=== PATIENT | male | born 1955 | race Caucasian/White ===

== ENCOUNTER 2020-06-24 12:09 | Emergency (ER) | payer MEDICARE, SELFPAY ==
--- NOTE | ~2020-06-24 | XR_ITS ---
EXAMINATION: XR CHEST CLINICAL INFORMATION: Cough COMPARISON: None TECHNIQUE: Frontal view of the chest was obtained. FINDINGS: Cardiac silhouette is normal in size. The lungs are well aerated. There is no lobar consolidation. No pleural effusion or pneumothorax. Degenerative changes of the spine. XR/XR chest 1V IMPRESSION: No acute pulmonary pathology.
[2020-06-24 12:29] VITALS: BP 123/60; PULSE 78; RESP 18; TEMP 37.4; O2SAT 94; BMI 45.0
--- NOTE | 2020-06-24 13:07 | ED_ITS ---
HPI - URI/Sore Throat General Chief Complaint: Upper Respiratory Symptoms Stated Complaint: COUGH Time Seen by Provider: 06/24/20 12:27 Source: patient Mode of arrival: ambulatory History of Present Illness HPI Narrative: 64-year-old male with a past medical history of arthritis, gout, hypertension, [place], presenting to the ED complaining of dry persistent cough, myalgias, and mild SOB x 3-4 days. 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 Denies fever, chills, chest pain, abdominal pain, nausea/vomiting/diarrhea, LE edema, recent travel, history of blood clots MD elicited complaint: cough Related Data Previous Rx's Medication Instructions Recorded albuterol sulfate 2 puff INHALATION Q4-6H PRN #6.7 g 06/24/20 benzonatate [Tessalon Perles] 100 mg PO TID PRN #14 cap 06/24/20 hydrocodone-homatropine [Hycodan 5 ml PO Q4-6H PRN #60 ml 06/24/20 (with homatropine)] Allergies Allergy/AdvReac Type Severity Reaction Status Date / Time duloxetine [Cymbalta] Allergy Unknown diarrhea Verified 10/05/18 00:00 Review of Systems Review of Systems: Constitutional: No Fever, No Chills ENT/Mouth: No Ear Pain, No Nasal Congestion, No sore throat, No Rhinorrhea Cardiovascular: No Chest Pain, +mild SOB, No Edema Respiratory: + Cough, No Sputum, No Wheezing, No Dyspnea Gastrointestinal: No Nausea, No Vomiting, No Diarrhea, No Abdominal pain Musculoskeletal: No joint pain, + Myalgias, No Joint Swelling Skin: No Skin Lesions, No rash Neuro: No Weakness, No Numbness, No Headache Yes all other systems are reviewed and are negative [facility] Past Medical History Attestation statement: The following information was validated with the patient. Medical History (Updated 06/24/20 @ 20:00 by BRITTNEE De La Cruz) Arthritis Gout HTN (hypertension) Myocardial infarct Social History Social History Alcohol intake: current Alcohol intake frequency: 3 or more drinks per day Smoking Status: Never smoker Use of substances other than those prescribed or required for medical reasons: No Advance Directives: No Advance Directives Information Provided: No Physical Exam Vital Signs: Vital Signs: Last Vital Signs Temp 98.8 F 06/24/20 15:52 Pulse 73 06/24/20 15:52 Resp 17 06/24/20 15:52 BP 99/65 06/24/20 15:52 Pulse Ox 93 06/24/20 16:55 Body Mass Index 45.0 Const: General: cooperative, healthy appearing and no acute distress Orientation/consciousness: patient oriented x3 Limitations: no limitations HENMT: Head: Yes normal to inspection Ears: hearing grossly normal bilaterally General nose exam: Normal external nose present Face and sinus: Yes normal facial exam Eyes: General: appearance normal, both eyes and all related structures EOM: EOMs intact bilaterally Neck: Neck: Yes normal visual inspection and Yes no meningeal signs Resp: Effort & Inspection: normal respiratory effort Auscultation: clear to auscultation bilaterally, no rales, no rhonchi and no wheezes Cardio: Rate: regular rate Heart sounds: S1 normal heart sound present and S2 normal heart sound present GI: Inspection: Yes normal to inspection Palpation (GI): Soft to palpation, nontender, no guarding and not rigid Skin: Rashes: no rashes Wounds: no wounds Neuro: General: patient oriented x3 and no meningeal signs Gait exam (Neuro): Normal gait present Extrem: General: Yes normal to inspection, Yes no pedal edema and Yes no calf tenderness Course Course Course Narrative: -1446--patient unable to tolerate albuterol inhaler secondary to coughing, Hycodan ordered. COVID-19 positive > satting 93% on RA at rest > labs ordered, will ambulate with pulse ox -leukopenia 4.1, D-dimer below threshold at 229, AST/ALT elevated greater than baseline -initial troponin elevated at 9.2 > will obtain 3 hour repeat Patient ambulated with pulse ox maintaining saturation of 95% or greater on room air -2057--repeat troponin without 50% increase, TN unlikely. Results discussed with patient including worrisome signs and symptoms and strict return precautions. He verbalized understanding and feels safe for discharge home MDM - URI/Sore Throat MDM Narrative Medical decision making narrative: 64-year-old male with a past medical history of arthritis, gout, hypertension, [place], presenting to the ED complaining of dry persistent cough, myalgias, and mild SOB x 3-4 days. On exam VSS, NAD/nontoxic appearing, lungs CTA, no LE edema or calf tenderness. Concern for viral syndrome/COVID-19 vs bronchitis. Rule out pneumonia. Unlikely PE/CHF Plan: CXR, COVID-19 testing, albuterol/Tessalon Curry Differential Diagnosis Differential diagnosis: Likely upper respiratory infection Medical Records Attestation: I reviewed the patient's medical records. Lab Data Attestation: I reviewed the patient's lab results. Result diagrams: 06/24/20 16:14 06/24/20 16:14 Labs: Lab Results 06/24/20 06/24/20 06/24/20 Range/Units 13:00 16:14 16:14 WBC 4.1 L (4.8-10.8) X10*3/uL RBC 5.38 (4.60-5.80) X10*6/uL Hgb 15.9 (14.0-18.0) g/dl Hct 48.3 (42-52) % MCV 89.8 (80-98) fL MCH 29.6 (27.0-33.0) pg MCHC 32.9 (31.0-36.0) g/dl RDW 12.6 (11.0-16.0) % Plt Count 120 L (160-400) X10*3/uL MPV 9.4 (9.4-12.4) fL Immature Gran % (Auto) 0.2 (0.0-0.4) % Neut % (Auto) 55.4 (45-73) % Lymph % (Auto) 31.9 (20-40) % [place] % (Auto) 12.3 H (2-11) % Eos % (Auto) 0.0 (0-4) % Baso % (Auto) 0.2 (0-2) % Lymph # (Auto) 1.3 (1.2-4.9) X10*3/uL [place] # (Auto) 0.5 (0.1-1.2) X10*3/uL Eos # (Auto) 0.0 (0.0-0.4) X10*3/uL Baso # (Auto) 0.0 (0.0-0.2) X10*3/uL Abs Immat Gran (auto) 0.01 (0.00-0.03) X10*3/uL Absolute Neuts (auto) 2.3 (2.0-8.3) X10*3/uL Absolute Nucleated RBC 0.000 (0.0-0.012) X10*3/uL Nucleated RBC % (auto) 0.0 (0.0-0.2) /100WBC PT (10.8-13.0) SEC INR (0.9-1.1) APTT (24.1-38.0) SEC D-Dimer NG/ML Sodium 141 (135-145) mmol/L Potassium 4.1 (3.3-5.1) mmol/L Chloride 107 (96-108) mmol/L Carbon Dioxide 24 (22-29) mmol/L Anion Gap 14 (12-20) BUN 14 (9-16) mg/dL Creatinine 0.90 (0.5-1.4) mg/dL Estim Creat Clear Calc 136.0 Estimated GFR > 60 Random Glucose 114 (60-115) mg/dL Lactic Acid (0.5-2.0) mmol/L Calcium 8.0 L (8.4-10.2) mg/dL Magnesium 2.0 (1.6-2.6) mg/dL Ferritin (20-250) ng/mL Total Bilirubin 0.6 (0.0-1.0) mg/dL Direct Bilirubin 0.2 (0.0-0.5) mg/dL AST 107 H (5-37) U/L ALT 101 H (0-40) U/L Alkaline Phosphatase 82 (39-117) U/L Lactate Dehydrogenase 229 (118-273) U/L Troponin I High Sens (<3.5-35.0) ng/L C-Reactive Protein 1.17 H (< or = 0.50) mg/dL B-Natriuretic Peptide (<100) pg/mL Total Protein 6.7 (6.5-8.0) g/dL Albumin 3.9 (3.5-5.0) g/dL Procalcitonin ng/mL Coronavirus (PCR) POSITIVE A (Negative) Influenza Type A (PCR) NEGATIVE (Negative) Influenza Type B (PCR) NEGATIVE (Negative) RSV RNA Qual (PCR) NEGATIVE (Negative) 06/24/20 06/24/20 06/24/20 Range/Units 16:14 16:14 16:14 WBC (4.8-10.8) X10*3/uL RBC (4.60-5.80) X10*6/uL Hgb (14.0-18.0) g/dl Hct (42-52) % MCV (80-98) fL MCH (27.0-33.0) pg MCHC (31.0-36.0) g/dl RDW (11.0-16.0) % Plt Count (160-400) X10*3/uL MPV (9.4-12.4) fL Immature Gran % (Auto) (0.0-0.4) % Neut % (Auto) (45-73) % Lymph % (Auto) (20-40) % [place] % (Auto) (2-11) % Eos % (Auto) (0-4) % Baso % (Auto) (0-2) % Lymph # (Auto) (1.2-4.9) X10*3/uL [place] # (Auto) (0.1-1.2) X10*3/uL Eos # (Auto) (0.0-0.4) X10*3/uL Baso # (Auto) (0.0-0.2) X10*3/uL Abs Immat Gran (auto) (0.00-0.03) X10*3/uL Absolute Neuts (auto) (2.0-8.3) X10*3/uL Absolute Nucleated RBC (0.0-0.012) X10*3/uL Nucleated RBC % (auto) (0.0-0.2) /100WBC PT (10.8-13.0) SEC INR (0.9-1.1) APTT (24.1-38.0) SEC D-Dimer NG/ML Sodium (135-145) mmol/L Potassium (3.3-5.1) mmol/L Chloride (96-108) mmol/L Carbon Dioxide (22-29) mmol/L Anion Gap (12-20) BUN (9-16) mg/dL Creatinine (0.5-1.4) mg/dL Estim Creat Clear Calc Estimated GFR Random Glucose (60-115) mg/dL Lactic Acid 1.2 (0.5-2.0) mmol/L Calcium (8.4-10.2) mg/dL Magnesium (1.6-2.6) mg/dL Ferritin 1968 H (20-250) ng/mL Total Bilirubin (0.0-1.0) mg/dL Direct Bilirubin (0.0-0.5) mg/dL AST (5-37) U/L ALT (0-40) U/L Alkaline Phosphatase (39-117) U/L Lactate Dehydrogenase (118-273) U/L Troponin I High Sens 9.2 (<3.5-35.0) ng/L C-Reactive Protein (< or = 0.50) mg/dL B-Natriuretic Peptide 23 (<100) pg/mL Total Protein (6.5-8.0) g/dL Albumin (3.5-5.0) g/dL Procalcitonin ng/mL Coronavirus (PCR) (Negative) Influenza Type A (PCR) (Negative) Influenza Type B (PCR) (Negative) RSV RNA Qual (PCR) (Negative) 06/24/20 06/24/20 06/24/20 Range/Units 16:14 16:42 20:07 WBC (4.8-10.8) X10*3/uL RBC (4.60-5.80) X10*6/uL Hgb (14.0-18.0) g/dl Hct (42-52) % MCV (80-98) fL MCH (27.0-33.0) pg MCHC (31.0-36.0) g/dl RDW (11.0-16.0) % Plt Count (160-400) X10*3/uL MPV (9.4-12.4) fL Immature Gran % (Auto) (0.0-0.4) % Neut % (Auto) (45-73) % Lymph % (Auto) (20-40) % [place] % (Auto) (2-11) % Eos % (Auto) (0-4) % Baso % (Auto) (0-2) % Lymph # (Auto) (1.2-4.9) X10*3/uL [place] # (Auto) (0.1-1.2) X10*3/uL Eos # (Auto) (0.0-0.4) X10*3/uL Baso # (Auto) (0.0-0.2) X10*3/uL Abs Immat Gran (auto) (0.00-0.03) X10*3/uL Absolute Neuts (auto) (2.0-8.3) X10*3/uL Absolute Nucleated RBC (0.0-0.012) X10*3/uL Nucleated RBC % (auto) (0.0-0.2) /100WBC PT 14.1 H (10.8-13.0) SEC INR 1.2 H (0.9-1.1) APTT 36.6 (24.1-38.0) SEC D-Dimer 229 NG/ML Sodium (135-145) mmol/L Potassium (3.3-5.1) mmol/L Chloride (96-108) mmol/L Carbon Dioxide (22-29) mmol/L Anion Gap (12-20) BUN (9-16) mg/dL Creatinine (0.5-1.4) mg/dL Estim Creat Clear Calc Estimated GFR Random Glucose (60-115) mg/dL Lactic Acid (0.5-2.0) mmol/L Calcium (8.4-10.2) mg/dL Magnesium (1.6-2.6) mg/dL Ferritin (20-250) ng/mL Total Bilirubin (0.0-1.0) mg/dL Direct Bilirubin (0.0-0.5) mg/dL AST (5-37) U/L ALT (0-40) U/L Alkaline Phosphatase (39-117) U/L Lactate Dehydrogenase (118-273) U/L Troponin I High Sens 8.0 (<3.5-35.0) ng/L C-Reactive Protein (< or = 0.50) mg/dL B-Natriuretic Peptide (<100) pg/mL Total Protein (6.5-8.0) g/dL Albumin (3.5-5.0) g/dL Procalcitonin 0.08 ng/mL Coronavirus (PCR) (Negative) Influenza Type A (PCR) (Negative) Influenza Type B (PCR) (Negative) RSV RNA Qual (PCR) (Negative) ECG Data Attestation: I personally reviewed and interpreted this ECG as follows: ECG interpretation date: 06/24/20 ECG interpretation time: 15:33 Interpretation: EKG normal sinus rhythm with a rate of 71. No STEMI. Discharge Plan Discharge Clinical Impression: COVID-19 Patient Disposition: Home, Self-Care Instructions: COVID-19 (Coronavirus Disease 2019) (ED) Additional Instructions: You have COVID-19. You need to self isolate for 10-14 days Use albuterol inhaler at for wheezing/shortness of breath Tessalon Perles for cough Hycodan cough syrup is for severe cough, take as needed Call your doctor to make aware If you develop constant worsening shortness of breath, chest pain, or fever unresolved Tylenol or Motrin at home return to the ED immediately Consider buying a pulse oximeter to monitor your oxygen at home, if it is dropping in the low 90s or below 90 return to the ED immediately CDC Guidelines for home isolation: - Stay away from others - WEAR A MASK if you are sick AND STAY HOME - Cover your mouth and nose with a tissue when you cough or sneeze. Dispose of tissues in a lined trash can and wash your hands immediately with soap and water for at least 20 seconds. If soap and water are not available, clean hands with alcohol-based hand assessment rn that contains at least 60% alcohol. - Clean your hands often with soap and water for at least 20 seconds - Avoid touching your eyes, nose and mouth with unwashed hands - Do not share dishes, drinking glasses, cups, eating utensils, towels, or bedding with other people in your home. After using these items, wash them thoroughly with soap and water or put in the cloth bleaching range operator chief. - Clean high-touch surfaces in your isolation area ( sick room and bathroom) every day; let a caregiver clean and disinfect high-touch surfaces in other areas of the home. Clean the area or item with soap and water or another detergent if it is dirty. Then, use a household disinfectant. - Limit contact with pets and animals: If you must care for a pet, wash your hands before and after interacting with them) Prescriptions: New albuterol sulfate 90 mcg/actuation HFA aerosol inhaler 2 puff inhalation Q4-6H PRN (Reason: shortness of breath or wheezing) Qty: 6.7 RF: 0 benzonatate [Tessalon Perles] 100 mg capsule 100 mg PO TID PRN (Reason: cough) Qty: 14 RF: 0 hydrocodone-homatropine [Hycodan (with homatropine)] 5-1.5 mg/5 mL syrup 5 ml PO Q4-6H PRN (Reason: cough) Qty: 60 RF: 0 Referrals: Mukul Callaway MD [Primary Care Provider] - 2 days (call)
[2020-06-24] MEDS: Benzonatate 100 MG CAPSULE PO (13:33)
[2020-06-24] MEDS: Acetaminophen 325 MG TABLET 650 MG PO (13:33)
[2020-06-24 14:00] VITALS: BP 123/57; PULSE 72; RESP 18; TEMP 37.4; O2SAT 94
[2020-06-24] MEDS: Albuterol Sulfate 90 MCG 8 GM INHALER 4 PUFF INHALE (14:00)
[2020-06-24 14:04] LABS: Influenza A PCR NEGATIVE (Negative); Influenza B PCR NEGATIVE (Negative); Resp Syncy Virus RNA Qual PCR NEGATIVE (Negative); SARS COV2 PCR INHOUSE POSITIVE (Negative)
--- NOTE | 2020-06-24 14:04 | PC.NURSE ---
attempt at inhailer is difficult. pt hacking coughing with each inhalation.
[2020-06-24 14:32] VITALS: RESP 18; O2SAT 93
--- NOTE | 2020-06-24 14:41 | ECG_ITS ---
Test Reason : DIFFICULTY BREATHING Blood Pressure : / mmHG Vent. Rate : 071 BPM Atrial Rate : 071 BPM P-R Int : 148 ms QRS Dur : 074 ms QT Int : 390 ms P-R-T Axes : 012 003 024 degrees QTc Int : 423 ms Normal sinus rhythm Minimal voltage criteria for LVH, may be normal variant Borderline ECG No previous ECGs available Referred By: Savanna Ratliff Electronically Signed By:LE OMALLEY MD
[2020-06-24] MEDS: HYDROcodone/Homat 5/1.5/5 ML 5 ML SYRUP PO (15:50)
[2020-06-24 15:52] VITALS: BP 99/65; PULSE 73; RESP 17; TEMP 37.1; O2SAT 95
[2020-06-24 16:24] LABS: MANUAL DIFF FLAG NO
[2020-06-24 16:26] LABS: Basophils Percent Auto 0.2 % (0-2); Hematocrit 48.3 % (42-52); Hemoglobin 15.9 g/dl (14.0-18.0); Imm Gran Abs Auto 0.01 X10*3/uL (0.00-0.03); Imm Gran Pct Auto 0.2 % (0.0-0.4); Lymphocytes Absolute Auto 1.3 X10*3/uL (1.2-4.9); Lymphocytes Percent Auto 31.9 % (20-40); Mean Corpuscular HGB Conc 32.9 g/dl (31.0-36.0); Mean Corpuscular Hemoglobin 29.6 pg (27.0-33.0); Mean Corpuscular Volume 89.8 fL (80-98); Mean Platelet Volume 9.4 fL (9.4-12.4); Monocytes Absolute Auto 0.5 X10*3/uL (0.1-1.2); Monocytes Percent Auto 12.3 % (2-11); Neutrophils Absolute Auto 2.3 X10*3/uL (2.0-8.3); Neutrophils Percent Auto 55.4 % (45-73); Platelet Count 120 X10*3/uL (160-400); Red Blood Count 5.38 X10*6/uL (4.60-5.80); Red Cell Distribution Width 12.6 % (11.0-16.0); White Blood Count 4.1 X10*3/uL (4.8-10.8)
[2020-06-24 16:55] VITALS: O2SAT 93
--- NOTE | 2020-06-24 16:55 | PC.NURSE ---
Pt resting comfortably. He is not requiring any oxygen at this time with sats mid 90s on room air. Awaiting lab results at this time.
[2020-06-24 16:57] LABS: INTERNATIONAL NORM RATIO 1.2 (0.9-1.1); Prothrombin Time 14.1 SEC (10.8-13.0)
[2020-06-24 16:58] LABS: Lactic Acid 1.2 mmol/L (0.5-2.0)
[2020-06-24 17:00] LABS: D Dimer 229 NG/ML; Partial Thromboplastin Time 36.6 SEC (24.1-38.0)
[2020-06-24 17:01] LABS: Alanine Aminotransferase 101 U/L (0-40); Albumin Level 3.9 g/dL (3.5-5.0); Alkaline Phosphatase 82 U/L (39-117); Anion Gap 14 (12-20); Aspartate Amino Transferase 107 U/L (5-37); Bilirubin Direct 0.2 mg/dL (0.0-0.5); Bilirubin Total 0.6 mg/dL (0.0-1.0); Blood Urea Nitrogen 14 mg/dL (9-16); C Reactive Protein 1.17 mg/dL (< or = 0.50); Carbon Dioxide 24 mmol/L (22-29); Chloride 107 mmol/L (96-108); Estimated Glomerular Filt Rate > 60; Glucose Random 114 mg/dL (60-115); Lactate Dehydrogenase 229 U/L (118-273); Potassium 4.1 mmol/L (3.3-5.1); Sodium 141 mmol/L (135-145); Total Protein 6.7 g/dL (6.5-8.0)
[2020-06-24 17:03] LABS: B Type Natriuretic Peptide 23 pg/mL (<100); Troponin-I High Sensitivity 9.2 ng/L (<3.5-35.0)
[2020-06-24 17:16] LABS: Procalcitonin 0.08 ng/mL
--- NOTE | 2020-06-24 17:43 | PC.NURSE ---
Pt's o2 sats 95% on room air with ambulation. Pt denies SOB with ambulation trial.
[2020-06-24 18:36] LABS: Ferritin 1968 ng/mL (20-250)
[2020-06-24 21:52] VITALS: BP 101/69; PULSE 75; RESP 19; O2SAT 95
== END 2020-06-24 21:55 | disposition home or self-care (01) ==
PROVIDERS: Physician Assistant; Emergency Provider Internal Medicine; PCP Internal Medicine
DX: U07.1 COVID-19 (principal); R05 Cough; M79.10 Myalgia, unspecified site; I10 Essential (primary) hypertension; Z79.899 Other long term (current) drug therapy
CPT/HCPCS: 0241U; 36415; 71045; 80048; 80076; 82728; 83605; 83615; 83735; 83880; 84145; 84484; 85025; 85379; 85610; 85730; 86140; 87040; 93005; 99284

== ENCOUNTER 2020-06-29 10:20 | Inpatient (IN) | payer MEDICARE, SELFPAY ==
[2020-06-29] VITALS (10 sets, daily range): BP systolic 124–157; BP diastolic 68–89; PULSE 60–81; RESP 16–20; TEMP 36.2–36.9; O2SAT 87–96; BMI 45.0
--- NOTE | ~2020-06-29 | CT_ITS ---
EXAMINATION: CT ANGIOGRAM OF THE CHEST WITH AND WITHOUT CONTRAST (CT PULMONARY ANGIOGRAM FOR PE) CLINICAL INFORMATION: Hypoxia, shortness of breath, COVID, elevated d-dimer COMPARISON: None TECHNIQUE: Prior to contrast administration, noncontrast localization images were obtained. Subsequently, multidetector volumetric imaging was performed from the thoracic inlet to below the diaphragms following the administration of 80 mL Omnipaque 350 intravenous contrast. No contrast reaction reported Sagittal, coronal, and MIP oblique sagittal reformatted images were obtained on the CT workstation, uploaded to PACS, and reviewed. This CT examination was performed using dose optimization techniques as appropriate, variously including the following: *Automated exposure control *Adjustment of mA and/or kV according to patient size (this includes techniques or standardized protocols for targeted exams where dose is matched to indication/reason for exam; i.e. extremities or head) *Use of iterative reconstruction technique 71 Total exam dose-length product 555 mGy-cm FINDINGS: QUALITY OF STUDY/CONTRAST BOLUS: Although the IV contrast bolus is satisfactory, the study is limited by respiratory motion and quantum mottle from the patient's body habitus. PULMONARY ARTERIES: No central or segmental pulmonary emboli. THORACIC AORTA: No aneurysm or dissection. LUNG: Patchy bilateral areas of peripheral predominant groundglass opacity are seen consistent with viral COVID pneumonitis. No dense focal consolidation to suggest aspiration or pneumonia. PLEURA: No pleural effusion or pneumothorax. MEDIASTINUM: Mild cardiomegaly. No pericardial effusion. Numerous prominent mediastinal lymph nodes are present, presumably reactive. There is right hilar lymphadenopathy, likely reactive as well. No evidence of septal bowing or right heart strain. CHEST WALL/AXILLA: No axillary or internal mammary lymphadenopathy. Bilateral gynecomastia. OSSEOUS STRUCTURES: No acute or suspicious osseous abnormality. UPPER ABDOMEN: Diffuse hepatic steatosis. No adrenal mass. No reflux of contrast into the hepatic veins to suggest elevated right heart pressures. CT/CT angio chest PE protocol IMPRESSION: No pulmonary embolus seen. Patchy bilateral areas of peripheral predominant groundglass opacity are seen, consistent with history of viral COVID pneumonitis. Likely reactive lymphadenopathy. VTE: negative
--- NOTE | ~2020-06-29 | XR_ITS ---
EXAMINATION: XR CHEST CLINICAL INFORMATION: Known COVID. COMPARISON: Chest radiograph done on 06/24/2020. TECHNIQUE: Frontal view of the chest was obtained. FINDINGS: Patchy interstitial airspace disease is noted at both mid to lower lung field, appears new since prior study, consistent with Covid 19 pneumonia. Cardiac mediastinal silhouette is within normal limit. No evidence of any pleural effusion or pneumothorax. Visualized upper abdomen is unremarkable. XR/XR chest 1V IMPRESSION: Abnormal chest radiograph showing evidence of multilobar pneumonia, consistent with Covid 19 pneumonia.
--- NOTE | 2020-06-29 11:20 | ECG_ITS ---
Test Reason : SOB Blood Pressure : / mmHG Vent. Rate : 068 BPM Atrial Rate : 068 BPM P-R Int : 136 ms QRS Dur : 084 ms QT Int : 396 ms P-R-T Axes : 025 013 023 degrees QTc Int : 421 ms Normal sinus rhythm Normal ECG When compared with ECG of 24-JUN-2020 15:33, No significant change was found Referred By: Keerthi Ramsey Electronically Signed By:WILBER COUGHLIN
--- NOTE | 2020-06-29 11:35 | ED.URI ---
HPI - URI/Sore Throat General Chief Complaint: Upper Respiratory Symptoms Stated Complaint: SOB Time Seen by Provider: 06/29/20 11:20 Source: patient Mode of arrival: ambulatory Limitations: no limitations History of Present Illness HPI Narrative: 64 y/o male with history of HTN, gout, arthritis, hx PA in the past who was recently diagnosed with COVID-19 on 06/24 presents with worsening cough and reports to hypoxia on his home pulse oximeter. He states since he was diagnosed here on 06/24 his symptoms have gotten worse. He is SOB with exertion and gets into terrible coughing fits and cannot catch his breath. He has been taking the prescribed anti-tussives and using the inhaler with no improvement. He has chest discomfort when coughing but no chest pain with exertion or at rest. His cough is non-productive. He denies fevers or chills at home. No N/V/D or abdominal pain. He has generalized weakness and malaise. He reports this morning his SpO2 was 89% on his home monitor and he was instructed to come back to the ER if this occurred. 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) Associated symptoms: myalgias, diaphoresis, headache, nasal congestion, cough and shortness of breath Treatments prior to arrival: none Related Data Previous Rx's Medication Instructions Recorded albuterol sulfate 2 puff INHALATION Q4-6H PRN #6.7 g 06/24/20 benzonatate [Tessalon Perles] 100 mg PO TID PRN #14 cap 06/24/20 hydrocodone-homatropine [Hycodan 5 ml PO Q4-6H PRN #60 ml 06/24/20 (with homatropine)] Allergies Allergy/AdvReac Type Severity Reaction Status Date / Time duloxetine [Cymbalta] Allergy Unknown diarrhea Verified 10/05/18 00:00 Review of Systems Review of Systems: Constitutional: No Fever, No Chills ENT/Mouth: No sore throat, No Rhinorrhea, No Swallowing Difficulty Cardiovascular: No Chest Pain, + SOB, No Orthopnea, No Edema Respiratory: + Cough, No Sputum, No Wheezing, + dyspnea Gastrointestinal: No Nausea, No Vomiting, No Diarrhea, No abdominal Pain Genitourinary: No Dysuria, No Urinary Frequency, No Hematuria Musculoskeletal: No joint pain, + Myalgias Skin: No Skin Lesions, No rash Neuro: + Weakness, No Numbness, No Dizziness, + Headache Psych: No Anxiety/Panic, No Depression Heme/Lymph: No Bruising, No Lymphadenopathy [facility] Past Medical History Attestation statement: The following information was validated with the patient. Medical History Arthritis COVID-19 Gout HTN (hypertension) Myocardial infarct Social History Social History Alcohol intake: current Alcohol intake frequency: 3 or more drinks per day Smoking Status: Never smoker Advance Directives: No Advance Directives Information Provided: Yes Physical Exam Vital Signs: Vital Signs: Last Vital Signs Temp 98.2 F 06/29/20 15:58 Pulse 60 06/29/20 15:58 Resp 19 06/29/20 15:58 BP 124/68 06/29/20 15:58 Pulse Ox 95 06/29/20 15:58 Body Mass Index 45.0 Appearance: Alert. Oriented X3. No acute distress. Eyes: Pupils equal, round and reactive to light. ENT: Pharynx normal. Neck: Normal inspection. Neck supple. CVS: Normal heart rate and rhythm. Pulses normal. Mild parasternal chest wall tenderness Respiratory: No respiratory distress at rest. End expiratory wheeze in LLL, cleared with a cough, coarse throughout, ALEXANDRA with tachypnea and increased WOB Abdomen: Obese, Soft and nontender. +BS x4 Skin: Skin warm and dry. Normal skin color. Normal skin turgor. No rashes. Extremities: No lower extremity edema. Negative Jose Cruz's sign Neuro: Oriented X 3. Steady gait, non-focal Course Course Course Narrative: 64 y/o male with recently diagnoased COVID-19 presenting with worsening symptoms including ALEXANDRA and hypoxia at home. His is dyspneic with exertion here, Spo2 initially 91-93%. Concern for evolving COVID pneumonia vs possible PE. Will get CXR, lab workup and ambulate on room air. Will likely need admission give respiratory distress with exertion. Reevaluation(s) Reevaluation #1: Spo2 87% at rest. Placed on 2L NC. Decadron ordered. CXR with bilateral infiltrated consistent with COVID pneumonia. Blood workup pending. Will hold off on antibiotics at this time as this is all likely viral due to COVID. Procalcitonin pending. Reevaluation #2: DDIMER 380s with EKG with Q3T3 pattern concerning for possible PE. CTA ordered, delay due to poor IV access. Nursing aware. Reevaluation #3: CTA completed. Negative for PE. Patient to be admitted for acute hypoxic respiratory failure 2/2 COVID-19. Spoke w/ Dr. Rivera who accepts. MDM - URI/Sore Throat Medical Records Attestation: I reviewed the patient's medical records. Lab Data Attestation: I reviewed the patient's lab results. Result diagrams: 06/29/20 13:02 06/29/20 13:02 Labs: Lab Results 06/29/20 06/29/20 06/29/20 Range/Units 13:02 13:02 13:02 WBC 5.1 (4.8-10.8) X10*3/uL RBC 5.38 (4.60-5.80) X10*6/uL Hgb 15.8 (14.0-18.0) g/dl Hct 48.0 (42-52) % MCV 89.2 (80-98) fL MCH 29.4 (27.0-33.0) pg MCHC 32.9 (31.0-36.0) g/dl RDW 12.2 (11.0-16.0) % Plt Count 216 D (160-400) X10*3/uL MPV 10.1 (9.4-12.4) fL Immature Gran % (Auto) 0.4 (0.0-0.4) % Neut % (Auto) 70.1 (45-73) % Lymph % (Auto) 19.4 L (20-40) % [place] % (Auto) 9.7 (2-11) % Eos % (Auto) 0.2 (0-4) % Baso % (Auto) 0.2 (0-2) % Lymph # (Auto) 1.0 L (1.2-4.9) X10*3/uL [place] # (Auto) 0.5 (0.1-1.2) X10*3/uL Eos # (Auto) 0.0 (0.0-0.4) X10*3/uL Baso # (Auto) 0.0 (0.0-0.2) X10*3/uL Abs Immat Gran (auto) 0.02 (0.00-0.03) X10*3/uL Absolute Neuts (auto) 3.5 (2.0-8.3) X10*3/uL Absolute Nucleated RBC 0.000 (0.0-0.012) X10*3/uL Nucleated RBC % (auto) 0.0 (0.0-0.2) /100WBC Smear Tech's Comments VERIFIED D-Dimer 342 NG/ML Sodium 141 (135-145) mmol/L Potassium 4.4 (3.3-5.1) mmol/L Chloride 105 (96-108) mmol/L Carbon Dioxide 23 (22-29) mmol/L Anion Gap 17 (12-20) BUN 17 H (9-16) mg/dL Creatinine 0.76 (0.5-1.4) mg/dL Estim Creat Clear Calc 161.1 Estimated GFR > 60 Random Glucose 122 H (60-115) mg/dL Calcium 8.5 D (8.4-10.2) mg/dL Magnesium 2.3 (1.6-2.6) mg/dL Total Bilirubin 0.7 (0.0-1.0) mg/dL Direct Bilirubin 0.3 (0.0-0.5) mg/dL AST 55 H (5-37) U/L ALT 52 H (0-40) U/L Alkaline Phosphatase 73 (39-117) U/L Troponin I High Sens (<3.5-35.0) ng/L C-Reactive Protein 5.22 H (< or = 0.50) mg/dL B-Natriuretic Peptide (<100) pg/mL Total Protein 6.7 (6.5-8.0) g/dL Albumin 3.7 (3.5-5.0) g/dL Procalcitonin ng/mL 06/29/20 06/29/20 06/29/20 Range/Units 13:02 13:02 13:02 WBC (4.8-10.8) X10*3/uL RBC (4.60-5.80) X10*6/uL Hgb (14.0-18.0) g/dl Hct (42-52) % MCV (80-98) fL MCH (27.0-33.0) pg MCHC (31.0-36.0) g/dl RDW (11.0-16.0) % Plt Count (160-400) X10*3/uL MPV (9.4-12.4) fL Immature Gran % (Auto) (0.0-0.4) % Neut % (Auto) (45-73) % Lymph % (Auto) (20-40) % [place] % (Auto) (2-11) % Eos % (Auto) (0-4) % Baso % (Auto) (0-2) % Lymph # (Auto) (1.2-4.9) X10*3/uL [place] # (Auto) (0.1-1.2) X10*3/uL Eos # (Auto) (0.0-0.4) X10*3/uL Baso # (Auto) (0.0-0.2) X10*3/uL Abs Immat Gran (auto) (0.00-0.03) X10*3/uL Absolute Neuts (auto) (2.0-8.3) X10*3/uL Absolute Nucleated RBC (0.0-0.012) X10*3/uL Nucleated RBC % (auto) (0.0-0.2) /100WBC Smear Tech's Comments D-Dimer NG/ML Sodium (135-145) mmol/L Potassium (3.3-5.1) mmol/L Chloride (96-108) mmol/L Carbon Dioxide (22-29) mmol/L Anion Gap (12-20) BUN (9-16) mg/dL Creatinine (0.5-1.4) mg/dL Estim Creat Clear Calc Estimated GFR Random Glucose (60-115) mg/dL Calcium (8.4-10.2) mg/dL Magnesium (1.6-2.6) mg/dL Total Bilirubin (0.0-1.0) mg/dL Direct Bilirubin (0.0-0.5) mg/dL AST (5-37) U/L ALT (0-40) U/L Alkaline Phosphatase (39-117) U/L Troponin I High Sens 6.2 (<3.5-35.0) ng/L C-Reactive Protein (< or = 0.50) mg/dL B-Natriuretic Peptide 30 (<100) pg/mL Total Protein (6.5-8.0) g/dL Albumin (3.5-5.0) g/dL Procalcitonin 0.14 ng/mL ECG Data Attestation: I personally reviewed and interpreted this ECG as follows: ECG interpretation date: 06/29/20 ECG interpretation time: 14:42 Prior ECG tracings: available for review Interpretation: normal sinus rhythm, HR 68 bpm, normal IN interval, normal QTc, Q wave present in lead III with t-wave inversion unchanged from prior 1 week ago. Critical Care Time Critical Care Time Critical Care Time: Yes Total Critical Care Time: 38 Attestation: I attest to critical care time spent with this patient. Time spent reassessing pulmonary status, reviewing imaging, labs, prior records and coordinating care. Discharge Plan Discharge Clinical Impression: COVID-19, Acute respiratory failure with hypoxia Patient Disposition: Admitted As Inpatient
[2020-06-29 13:33] LABS: Alanine Aminotransferase 52 U/L (0-40); Albumin Level 3.7 g/dL (3.5-5.0); Alkaline Phosphatase 73 U/L (39-117); Anion Gap 17 (12-20); Aspartate Amino Transferase 55 U/L (5-37); Bilirubin Direct 0.3 mg/dL (0.0-0.5); Bilirubin Total 0.7 mg/dL (0.0-1.0); Blood Urea Nitrogen 17 mg/dL (9-16); C Reactive Protein 5.22 mg/dL (< or = 0.50); Calcium 8.5 mg/dL (8.4-10.2); Carbon Dioxide 23 mmol/L (22-29); Chloride 105 mmol/L (96-108); Creatinine Clr Calc Pharmacy 161.1; Estimated Glomerular Filt Rate > 60; Glucose Random 122 mg/dL (60-115); Magnesium 2.3 mg/dL (1.6-2.6); Potassium 4.4 mmol/L (3.3-5.1); Sodium 141 mmol/L (135-145); Total Protein 6.7 g/dL (6.5-8.0)
[2020-06-29 13:38] LABS: Basophils Percent Auto 0.2 % (0-2); D Dimer 342 NG/ML; Eosinophils Percent Auto 0.2 % (0-4); Hemoglobin 15.8 g/dl (14.0-18.0); Imm Gran Abs Auto 0.02 X10*3/uL (0.00-0.03); Imm Gran Pct Auto 0.4 % (0.0-0.4); Lymphocytes Percent Auto 19.4 % (20-40); MANUAL DIFF FLAG SCAN; Mean Corpuscular HGB Conc 32.9 g/dl (31.0-36.0); Mean Corpuscular Hemoglobin 29.4 pg (27.0-33.0); Mean Corpuscular Volume 89.2 fL (80-98); Mean Platelet Volume 10.1 fL (9.4-12.4); Monocytes Absolute Auto 0.5 X10*3/uL (0.1-1.2); Monocytes Percent Auto 9.7 % (2-11); Neutrophils Absolute Auto 3.5 X10*3/uL (2.0-8.3); Neutrophils Percent Auto 70.1 % (45-73); Platelet Count 216 X10*3/uL (160-400); Red Blood Count 5.38 X10*6/uL (4.60-5.80); Red Cell Distribution Width 12.2 % (11.0-16.0); SCAN SMEAR FLAG 1; White Blood Count 5.1 X10*3/uL (4.8-10.8)
[2020-06-29 13:39] LABS: Troponin-I High Sensitivity 6.2 ng/L (<3.5-35.0)
[2020-06-29 13:41] LABS: B Type Natriuretic Peptide 30 pg/mL (<100)
[2020-06-29] MEDS: dexAMETHasone sod phosphate 4 MG/ML VIAL 6 MG IVPUSH (13:43)
[2020-06-29] MEDS: guaiFEN/Codeine SF 200/20/10ML 10 ML LIQUID PO (13:43)
--- NOTE | 2020-06-29 13:49 | PC.NURSE ---
Pt placed on 2 litsrs NC with sats increasing to 94-95%. Pt was 89% on room air.
[2020-06-29 13:52] LABS: Procalcitonin 0.14 ng/mL
[2020-06-29 13:54] LABS: SLIDE REVIEW VERIFIED
--- NOTE | 2020-06-29 15:54 | PC.NURSE ---
med req completed
[2020-06-29] MEDS: iohexoL 350 MG/ML 100 ML INFUS..BTL IV (16:20)
--- NOTE | 2020-06-29 19:18 | HP_ITS ---
DATE OF SERVICE: 06/29/2020 CHIEF COMPLAINT: Shortness of breath and hypoxia. HISTORY OF PRESENT ILLNESS: This is a 64-year-old gentleman with past medical history significant for MO 8 to 9 years ago, history of gout, history of arthritis and hypertension, who was recently seen at [facility] on June 24 with multiple symptoms of shortness of breath of 3 to 4 days' duration, cough, and was diagnosed to have COVID-19 infection. The patient was discharged home since he was noted to have stable oxygenation. He was placed on Tessalon Perle and was recommended to check his home oxygen. As per patient, he was checking his oxygenation daily via the pulse oximeter and it was running somewhere between 95% to 96%, but however today he noted oxygenation to be 89% to 91% on room air. Therefore, he became concerned and return to the emergency room. He complains of persistent shortness of breath, worse with exertion; intractable coughing fits with incontinence of bowel. According to him, he has been using his cough medication and inhalers with no improvement in symptoms. He complains of persistent fevers and sweating. His cough is nonproductive. He denies any nausea, vomiting, or abdominal pain. In the emergency room, he was noted to have finger oximetry of 89% to 87%. Therefore, the patient was treated with IV steroid, cough medication. Due to elevated D-dimer, a CTA chest was obtained that showed ground-glass opacities consistent with COVID, but showed no PE. According to the patient, he drinks 6 to 8 beers per day, but he has not drank in the last 1 week. MEDICATIONS: On admission, none. Since the patient does not take any medications at home on a regular basis except he has been using the Tessalon Perle that was prescribed to him in the emergency room as well as albuterol inhaler and Hycodan cough syrup. ALLERGIES: HE IS ALLERGIC TO CYMBALTA THAT CAUSES DIARRHEA. PAST MEDICAL HISTORY: Significant for arthritis, not on any medication; history of gout, not on any medication; hypertension, does not take any medication; history of MO. He has not seen a dominatrix in last several years. SOCIAL HISTORY: He lives with his . He denies history of smoking. He daily drinks alcohol 6 times per week, 6 to 8 beers per day. No history of withdrawal symptoms. FAMILY HISTORY: Significant for premature coronary artery disease in father who had cardiac event in his 30s. 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 CVS: He denies any chest pain or palpitation. RESPIRATORY: He complains of cough, shortness of breath, worse with exertion. GI: He denies any nausea or vomiting. He has bout of bowel incontinence with coughing episodes. SKIN: He denies any rashes. All other systems are reviewed and are negative. PHYSICAL EXAMINATION: GENERAL: The patient is resting comfortably in bed with episodes of dry hacking cough. NECK: Supple. No JVD noted. LUNGS: Diminished breath sound bilaterally. No wheeze or rhonchi noted. HEART: Regular rate rhythm. ABDOMEN: Obese, soft, nontender. Bowel sounds are audible. EXTREMITIES: Without clubbing, cyanosis, or edema. Good peripheral pulses. NEUROLOGIC: Nonfocal. Speech clear. Patient alert and oriented x3. PSYCHIATRIC: Appropriate affect. SKIN: Without any rashes. LABORATORY DATA: Showed a WBC of 5.1, hematocrit of 48, platelet count of 216. INR of 1.2. D-dimer of 342. Sodium 141, potassium 4.4, bicarb 23, BUN 17, creatinine of 0.76, blood sugar 122, AST 55, ALT 52, C-reactive protein 5.22 and a procalcitonin of is 0.14. EKG showed no acute ischemic change. CT chest as mentioned in the HPI. ASSESSMENT AND PLAN: This is a 64-year-old gentleman with history of hypertension, history of prior myocardial infarction, gout, presented to [facility] due to persistent shortness of breath, cough, and hypoxia. The patient recently diagnosed to have COVID-19 infection on 06/24/2020. PROBLEM LIST: 1. Acute respiratory failure due to COVID-19 pneumonia. The patient will be admitted to isolation unit, will be placed on IV dexamethasone 6 mg daily[address] We will place on scheduled and as needed cough medication, continue albuterol inhaler as needed. Encourage frequent position change, out of bed to chair, and incentive spirometry. We will obtain an Infectious Disease consultation for evaluation for remdesivir due to multiple risk factors of worsening hypoxemia related to obesity, hypertension. 2. Coronary artery disease. The patient has not seen a physician in last several years, feels no medication works for him. Therefore, drinks heavily to cure himself. I strongly recommended to follow up with the primary care physician and Cardiology. 3. History of hypertension. The patient's blood pressure currently is stable. We will follow BP closely. 4. Deep vein thrombosis prophylaxis. We will place patient on Lovenox. 5. Code status. The patient wishes to be a full code. MD DORYS Angel/QUYNH / [phone]
--- NOTE | 2020-06-29 19:40 | PC.NURSE ---
Stretcher changed due to stretcher malfunction. Stretcher would not remain in locked, upright position. senior business consultant (Soheila) aware of malfunctioning bed. Pillow and new blanket give, vital signs stable. Denies complaints at this time. Requested and given ice water. Will continue to monitor.
[2020-06-29] MEDS: Enoxaparin Sodium 40 MG/0.4 ML SYRINGE SUBCUT (20:23)
--- NOTE | 2020-06-29 21:19 | PC.NURSE ---
Mel Moore notified of consult order for patient entered by hospitalist. Mel notified using tigertext @ [phone]
--- NOTE | 2020-06-29 21:39 | PC.NURSE ---
Attempted to contact [facility] RN to give report, however [facility] RN is unavailable at this time and will call back for report. Awaiting call back, preparing to transfer to room 475, COVID+.
--- NOTE | 2020-06-29 22:09 | PC.NURSE ---
Report given to [facility] RN. Preparing for transfer to room 475.
[2020-06-30 03:51] VITALS: BP 135/76; PULSE 72; RESP 18; TEMP 36.5; O2SAT 93
[2020-06-30 07:28] VITALS: BP 122/77; PULSE 84; RESP 18; TEMP 36.6; O2SAT 95
[2020-06-30] MEDS: 0.9 % Sodium Chloride Flush 3 ML SYRINGE IVFLUSH ×3 (07:44→22:03)
[2020-06-30] MEDS: dexAMETHasone sod phosphate 4 MG/ML VIAL 6 MG IVPUSH (07:45)
[2020-06-30] MEDS: guaiFEN/Codeine SF 200/20/10ML 10 ML LIQUID PO ×4 (08:06→22:03)
--- NOTE | 2020-06-30 10:49 | P.PNIM_ITS ---
Subjective Subjective Date of Service: 06/30/20 Interval History: Patient complaining of shortness of breath with activity, also complaining of persistent dry coughing spells overnight remains on 2 L of oxygen finger oximetry 95% ROS General no headache, no dizziness ,no fever chills. CVS no chest pain, no palpitation. Respiratory dry cough,sob with activity Gastrointestinal no nausea no vomiting, no abdominal pain Physical Exam Vital Signs: Vital Signs: Last Vital Signs Temp 97.8 F 06/30/20 07:28 Pulse 84 06/30/20 07:28 Resp 18 06/30/20 07:28 BP 122/77 06/30/20 07:28 Pulse Ox 95 06/30/20 07:28 Body Mass Index 45.0 General resting comfortably in no acute distress, but starts coughing with deep breathing and movement. Neck supple no JVD. CVS regular rate rhythm, Respiratory lungs diminished breath sounds, no respiratory distress, no wheeze, no rhonchi. Gastrointestinal abdomen soft, nontender, bowel sounds audible,no guarding , no rigidity. Extremities no edema. Neuro nonfocal Skin no rash Psychiatric appropriate affect Objective Data Current Medications Generic Name Dose Route Start Last Admin Trade Name Freq PRN Reason Stop Dose Admin Acetaminophen 650 mg 06/29/20 17:49 Acetaminophen 325 Mg Tablet PO Q6H PRN PAIN Dexamethasone Sodium Phosphate 6 mg 06/30/20 09:00 06/30/20 07:45 Dexamethasone Sod Phosphate 4 Mg/Ml Vial IVPUSH 6 mg DAILY STUART Administration Enoxaparin Sodium 40 mg 06/29/20 20:00 06/29/20 20:23 Enoxaparin Sodium 40 Mg/0.4 Ml Syringe SUBCUT 40 mg Q24H STUART Administration Guaifenesin/Codeine Phosphate 10 ml 06/29/20 17:49 06/30/20 08:06 Guaifen/Codeine Sf 200/20/10ml 10 Ml Liquid PO 10 ml Q6H PRN Administration cough Ondansetron HCl 4 mg 06/29/20 17:49 Ondansetron Hcl 4 Mg/2 Ml Vial IVPUSH Q8H PRN Nausea Pharmacy Consult 1 each 06/29/20 12:59 Consult Rx Perform Med Rec MISCELLANE ONCE PRN Consult order Sodium Chloride 3 ml 06/30/20 00:00 06/30/20 07:44 0.9 % Sodium Chloride Flush 3 Ml Syringe IVFLUSH 3 ml QSHIFT STUART Administration Labs CBC & Chem 7: 06/29/20 13:02 06/29/20 13:02 Assessment and Plan (1) Acute respiratory failure with hypoxia: Status: Acute (2) COVID-19: Status: Acute (3) Morbid obesity: Status: Acute (4) Alcohol dependence: Status: Acute Assessment and Plan: 64-year-old gentleman with history of hypertension, history of prior myocardial infarction, gout, presented to [facility] due to persistent shortness of breath, cough, and hypoxia. The patient recently diagnosed to have COVID-19 infection on 06/24/2020. 1. Acute respiratory failure due to COVID-19 pneumonia. Persistent shortness of breath with activity and dry cough, continue isolation, continue IV dexamethasone 6 mg day 04/30, home no evidence of secondary bacterial infection low procalcitonin Continue scheduled and as needed cough medication, continue albuterol inhaler as needed. Encourage frequent position change, out of bed to chair,and incentive spirometry. Await Infectious Disease input regarding recommendation for remdesivir due to multiple risk factors of morbid obesity/ hypertension and hypoxia. CTA chest showed no PE, normal electrolytes and CBC mildly elevated AST and ALT and CRP. 2. Coronary artery disease. Not on home medication and not being followed by Cardiology. Recommend outpatient follow-up with PCP and Cardiology. 3. History of hypertension. blood pressure currently is stable continue to monitor BP closely. 4. Alcohol dependence as per patient he drinks 8 beer and may be more 6 days a week, last drink 1 week ago no evidence of withdrawal follow JOSE 5. Code status. full code. 6. Deep vein thrombosis prophylaxis. on Lovenox.
--- NOTE | 2020-06-30 10:55 | MHC.CM.PN ---
CM met with patient at the bedside who states he is independent and lives with his /HCP Linda Gardnerwendy [phone]. CM assisted patient in filling out a HCP, copy placed on file. Discussed discharge plan, home no services. Linda will provide transport. TIKI will continue to follow patient for discharge needs.
[2020-06-30 11:06] VITALS: BP 117/64; PULSE 66; RESP 18; TEMP 36.2; O2SAT 94
[2020-06-30] MEDS: Ascorbic Acid 500 MG TABLET PO (12:25)
[2020-06-30] MEDS: Remdesivir 200 MG in 0.9 % Sodium Chloride 210 ML 105 MG IV (14:25)
[2020-06-30 15:20] VITALS: BP 130/71; PULSE 62; RESP 20; TEMP 36.1; O2SAT 98
[2020-06-30 18:57] VITALS: BP 140/80; PULSE 65; TEMP 35.9; O2SAT 93
[2020-06-30] MEDS: Enoxaparin Sodium 40 MG/0.4 ML SYRINGE SUBCUT (20:24)
[2020-06-30 23:50] VITALS: BP 119/65; PULSE 56; RESP 18; TEMP 36.4; O2SAT 95
[2020-07-01 03:30] VITALS: BP 124/69; PULSE 58; RESP 18; TEMP 36.2; O2SAT 99
[2020-07-01] MEDS: guaiFEN/Codeine SF 200/20/10ML 10 ML LIQUID PO ×4 (05:46→22:56)
[2020-07-01 08:00] VITALS: BP 109/69; PULSE 63; RESP 23; TEMP 36.1; O2SAT 96
[2020-07-01] MEDS: dexAMETHasone sod phosphate 4 MG/ML VIAL 6 MG IVPUSH (08:54)
[2020-07-01] MEDS: Acetaminophen 325 MG TABLET 650 MG PO (08:54)
[2020-07-01] MEDS: Ascorbic Acid 500 MG TABLET PO (08:54)
[2020-07-01] MEDS: 0.9 % Sodium Chloride Flush 3 ML SYRINGE IVFLUSH ×2 (08:55→14:36)
[2020-07-01 12:00] VITALS: BP 115/64; PULSE 63; RESP 20; TEMP 36; O2SAT 96
--- NOTE | 2020-07-01 13:08 | W.PM.IDCN ---
History of Present Illness Data of Consult Service Date: 07/01/20 Requesting physician: Ronald Adler Primary Care Provider: Mukul Callaway MD [facility] Reason for consult: COVID He presents to hospital with one week symptoms of shortness of breath. He has some cough as well. 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 He has some fever and chills Review of Systems Review of Systems: Yes all other systems are reviewed and are negative [facility] Past Medical History Medical History Arthritis COVID-19 Gout HTN (hypertension) Myocardial infarct Family History Family history: reviewed and not pertinent Social History Social History (Reviewed 07/01/20 @ : by Aaliyah Moore MD) Household Members: Spouse Housing: House Alcohol intake: current Alcohol intake frequency: 3 or more drinks per day Smoking Status: Never smoker Use of substances other than those prescribed or required for medical reasons: No Currently Displaying Signs/Symptoms of Drug Intoxication Withdrawal: No Have you been hit, kicked, punched, or otherwise hurt by someone within the past year? If so, by whom?: No Do you feel safe in your current relationship?: Yes Is there a partner from a previous relationship who is making you feel unsafe now?: No Are you made to feel afraid or neglected: No Advance Directives: No Advance Directives Information Provided: Yes Do you have thoughts of harming others: None Do you have a plan to hurt others: No Plan Recently lost weight without trying: No service: No Current occupational status: unemployed Meds Allergies Allergy/AdvReac Type Severity Reaction Status Date / Time duloxetine [Cymbalta] Allergy Unknown diarrhea Verified 10/05/18 00:00 Active Medications: Current Medications Generic Name Dose Route Start Last Admin Trade Name Freq PRN Reason Stop Dose Admin Acetaminophen 650 mg 06/29/20 17:49 07/01/20 08:54 Acetaminophen 325 Mg Tablet PO 650 mg Q6H PRN Administration PAIN Ascorbic Acid 500 mg 06/30/20 11:15 07/01/20 08:54 Ascorbic Acid 500 Mg Tablet PO 500 mg DAILY STUART Administration Dexamethasone Sodium Phosphate 6 mg 06/30/20 09:00 07/01/20 08:54 Dexamethasone Sod Phosphate 4 Mg/Ml Vial IVPUSH 6 mg DAILY STUART Administration Enoxaparin Sodium 40 mg 06/29/20 20:00 06/30/20 20:24 Enoxaparin Sodium 40 Mg/0.4 Ml Syringe SUBCUT 40 mg Q24H STUART Administration Guaifenesin/Codeine Phosphate 10 ml 06/30/20 11:01 07/01/20 12:00 Guaifen/Codeine Sf 200/20/10ml 10 Ml Liquid PO 10 ml Q6H STUART Administration Remdesivir 100 mg/ Sodium 230 mls @ 115 mls/hr 07/01/20 14:00 Chloride IV 07/04/20 15:59 Q24H STUART Ondansetron HCl 4 mg 06/29/20 17:49 Ondansetron Hcl 4 Mg/2 Ml Vial IVPUSH Q8H PRN Nausea Pharmacy Consult 1 each 06/29/20 12:59 Consult Rx Perform Med Rec MISCELLANE ONCE PRN Consult order Sodium Chloride 3 ml 06/30/20 00:00 07/01/20 08:55 0.9 % Sodium Chloride Flush 3 Ml Syringe IVFLUSH 3 ml QSHIFT STUART Administration Physical Exam Vital Signs: Vital Signs: Last Vital Signs Temp 96.8 F 07/01/20 12:00 Pulse 63 07/01/20 12:00 Resp 20 07/01/20 12:00 BP 115/64 07/01/20 12:00 Pulse Ox 96 07/01/20 12:00 Body Mass Index 45.0 Const: General: cooperative HENMT: Head: Yes normal to inspection Eyes: General: appearance normal, both eyes and all related structures Resp: Effort & Inspection: normal respiratory effort Cardio: Rate: regular rate Rhythm: regular rhythm GI: Palpation (GI): Soft to palpation and nontender Skin: General skin exam: no rashes or lesions noted Extrem: General: Yes normal to inspection Results Labs CBC & Chem 7: 06/29/20 13:02 06/29/20 13:02 Assessment and Plan (1) COVID-19: Problem details: He has hypoxia and signs of COVID He has no signs of superinfection Status: Acute Would give Remdesivir per protocol Continue oxygen Continue Dexamethasone per protocol (2) Acute respiratory failure with hypoxia: Status: Acute
--- NOTE | 2020-07-01 14:14 | P.PNIM_ITS ---
Subjective Subjective Date of Service: 07/01/20 Interval History: f/u on covid with hypoxia, Requiring oxygen. Coughing a lot. Review of Systems Gen: no fever Resp: +sob, + cough CV: no chest, no ALEXANDRA, no leg edema GI: No n/v, no abd pain Neuro: No confusion Physical Exam 2 Vital Signs: Vital Signs: Last Vital Signs Temp 96.8 F 07/01/20 12:00 Pulse 63 07/01/20 12:00 Resp 20 07/01/20 12:00 BP 115/64 07/01/20 12:00 Pulse Ox 96 07/01/20 12:00 Body Mass Index 45.0 General: AO X 3, no acute distress, morbid obesity Resp: Normal respiratory effort, speaks in full sentences. No accessory muscle use CVS: S1,S2,RRR GI: +BS, NT, no distention Skin: No rash Neuro: motor grossly intact Psych: appropriate affect Objective Data Current Medications Generic Name Dose Route Start Last Admin Trade Name Freq PRN Reason Stop Dose Admin Acetaminophen 650 mg 06/29/20 17:49 07/01/20 08:54 Acetaminophen 325 Mg Tablet PO 650 mg Q6H PRN Administration PAIN Ascorbic Acid 500 mg 06/30/20 11:15 07/01/20 08:54 Ascorbic Acid 500 Mg Tablet PO 500 mg DAILY STUART Administration Dexamethasone Sodium Phosphate 6 mg 06/30/20 09:00 07/01/20 08:54 Dexamethasone Sod Phosphate 4 Mg/Ml Vial IVPUSH 6 mg DAILY STUART Administration Enoxaparin Sodium 40 mg 06/29/20 20:00 06/30/20 20:24 Enoxaparin Sodium 40 Mg/0.4 Ml Syringe SUBCUT 40 mg Q24H STUART Administration Guaifenesin/Codeine Phosphate 10 ml 06/30/20 11:01 07/01/20 12:00 Guaifen/Codeine Sf 200/20/10ml 10 Ml Liquid PO 10 ml Q6H STUART Administration Remdesivir 100 mg/ Sodium 230 mls @ 115 mls/hr 07/01/20 14:00 Chloride IV 07/04/20 15:59 Q24H STUART Ondansetron HCl 4 mg 06/29/20 17:49 Ondansetron Hcl 4 Mg/2 Ml Vial IVPUSH Q8H PRN Nausea Pharmacy Consult 1 each 06/29/20 12:59 Consult Rx Perform Med Rec MISCELLANE ONCE PRN Consult order Sodium Chloride 3 ml 06/30/20 00:00 07/01/20 08:55 0.9 % Sodium Chloride Flush 3 Ml Syringe IVFLUSH 3 ml QSHIFT STUART Administration Labs CBC & Chem 7: 06/29/20 13:02 06/29/20 13:02 Assessment and Plan (1) Acute respiratory failure with hypoxia: Status: Acute (2) COVID-19: Problem details: He has hypoxia and signs of COVID He has no signs of superinfection Status: Acute (3) Morbid obesity: Status: Acute (4) Alcohol dependence: Status: Acute Assessment and Plan: 64-year-old gentleman with history of hypertension, history of prior myocardial infarction, gout, presented to [facility] due to persistent shortness of breath, cough, and hypoxia. The patient recently diagnosed to have COVID-19 infection on 06/24/2020. 1. Acute respiratory failure due to COVID-19 pneumonia. Still hypoxic. No PE by CT c -Remdesevir D2/5 -Wean off O2 -Probably has hypoventilation compoenent 2. Coronary artery disease. outpatient follow u 3. History of hypertension. BP normal, no meds 4. Alcohol dependence as per patient he drinks 8 beer and may be more 6 days a week, last drink 1 week ago no evidence of withdrawal follow ROSALINAWA 5. Code status. full code. 6. Deep vein thrombosis prophylaxis. on Lovenox.
[2020-07-01] MEDS: Remdesivir 100 MG in 0.9 % Sodium Chloride 230 ML 115 MG IV (14:36)
[2020-07-01 15:39] VITALS: BP 116/63; PULSE 59; RESP 17; TEMP 35.9; O2SAT 98
[2020-07-01 19:26] VITALS: BP 120/63; PULSE 62; RESP 18; TEMP 36.1; O2SAT 99
[2020-07-01] MEDS: Enoxaparin Sodium 40 MG/0.4 ML SYRINGE SUBCUT (21:29)
[2020-07-01 23:35] VITALS: BP 102/61; PULSE 47; RESP 18; TEMP 36.1; O2SAT 98
[2020-07-02] MEDS: 0.9 % Sodium Chloride Flush 3 ML SYRINGE IVFLUSH ×3 (00:34→16:50)
[2020-07-02 03:50] VITALS: BP 131/69; PULSE 44; RESP 18; TEMP 36.2; O2SAT 96
[2020-07-02] MEDS: guaiFEN/Codeine SF 200/20/10ML 10 ML LIQUID PO ×3 (04:41→16:56)
[2020-07-02 07:07] VITALS: BP 119/75; PULSE 52; RESP 19; TEMP 36.6; O2SAT 97
[2020-07-02] MEDS: dexAMETHasone sod phosphate 4 MG/ML VIAL 6 MG IVPUSH (10:16)
[2020-07-02] MEDS: Acetaminophen 325 MG TABLET 650 MG PO (10:17)
[2020-07-02] MEDS: Ascorbic Acid 500 MG TABLET PO (10:17)
[2020-07-02 10:57] VITALS: BP 117/66; PULSE 56; RESP 20; TEMP 36.6; O2SAT 96
--- NOTE | 2020-07-02 11:37 | MHC.CM.PN ---
Patient is on 2 liters O2 via NC for COVID+. Patient is also on IV Remdesivir day 2/ and IV Dexamethasone day 05/28. Discharge plan is home no services. will provide transport. CM will continue to follow patient for discharge needs.
[2020-07-02] MEDS: Remdesivir 100 MG in 0.9 % Sodium Chloride 230 ML 115 MG IV (13:52)
[2020-07-02 15:12] VITALS: BP 111/69; PULSE 62; RESP 20; TEMP 36; O2SAT 97
--- NOTE | 2020-07-02 15:44 | HO.PM.IMPN ---
Subjective Subjective Date of Service: 07/02/20 Interval History: f/u on covid with hypoxia. Off oxygen today, cough is better, less sob Review of Systems Gen: no fever Resp: +sob, + cough CV: no chest, no ALEXANDRA, no leg edema GI: No n/v, no abd pain Neuro: No confusion Physical Exam Vital Signs: Vital Signs: Last Vital Signs Temp 96.8 F 07/02/20 15:12 Pulse 62 07/02/20 15:12 Resp 20 07/02/20 15:12 BP 111/69 07/02/20 15:12 Pulse Ox 97 07/02/20 15:12 Body Mass Index 45.0 Const: Other: General: AO X 3, no acute distress Resp: Normal respiratory effort, no auscultation due to COVID CVS: Regular GI: +BS, NT, no distention Skin: No rash Neuro: motor grossly intact Psych: appropriate affect Objective Data Current Medications Generic Name Dose Route Start Last Admin Trade Name Freq PRN Reason Stop Dose Admin Acetaminophen 650 mg 06/29/20 17:49 07/02/20 10:17 Acetaminophen 325 Mg Tablet PO 650 mg Q6H PRN Administration PAIN Ascorbic Acid 500 mg 06/30/20 11:15 07/02/20 10:17 Ascorbic Acid 500 Mg Tablet PO 500 mg DAILY STUART Administration Dexamethasone Sodium Phosphate 6 mg 06/30/20 09:00 07/02/20 10:16 Dexamethasone Sod Phosphate 4 Mg/Ml Vial IVPUSH 6 mg DAILY STUART Administration Enoxaparin Sodium 40 mg 06/29/20 20:00 07/01/20 21:29 Enoxaparin Sodium 40 Mg/0.4 Ml Syringe SUBCUT 40 mg Q24H STUART Administration Guaifenesin/Codeine Phosphate 10 ml 06/30/20 11:01 07/02/20 10:17 Guaifen/Codeine Sf 200/20/10ml 10 Ml Liquid PO 10 ml Q6H STUART Administration Remdesivir 100 mg/ Sodium 230 mls @ 115 mls/hr 07/01/20 14:00 07/02/20 13:52 Chloride IV 07/04/20 15:59 115 mls/hr Q24H STUART Administration Ondansetron HCl 4 mg 06/29/20 17:49 Ondansetron Hcl 4 Mg/2 Ml Vial IVPUSH Q8H PRN Nausea Pharmacy Consult 1 each 06/29/20 12:59 Consult Rx Perform Med Rec MISCELLANE ONCE PRN Consult order Sodium Chloride 3 ml 06/30/20 00:00 07/02/20 10:17 0.9 % Sodium Chloride Flush 3 Ml Syringe IVFLUSH 3 ml QSHIFT STUART Administration Labs CBC & Chem 7: 06/29/20 13:02 06/29/20 13:02 Assessment and Plan (1) Acute respiratory failure with hypoxia: Status: Acute (2) COVID-19: Problem details: He has hypoxia and signs of COVID He has no signs of superinfection Status: Acute (3) Morbid obesity: Status: Acute (4) Alcohol dependence: Status: Acute Assessment and Plan: 64-year-old gentleman with history of hypertension, history of prior myocardial infarction, gout, presented to [facility] due to persistent shortness of breath, cough, and hypoxia. The patient recently diagnosed to have COVID-19 infection on 06/24/2020. 1. Acute respiratory failure due to COVID-19 pneumonia. Still hypoxic. No PE by CT c -Remdesevir D3/5 -Off O2 -Probably has hypoventilation compoenent 2. Coronary artery disease. outpatient follow u 3. History of hypertension. BP normal, no meds 4. Alcohol dependence as per patient he drinks 8 beer and may be more 6 days a week, last drink 1 week ago no evidence of withdrawal follow CIWA 4. Morbid obesity--likely having negative impact on health, 5. Code status. full code. 6. Deep vein thrombosis prophylaxis. on Lovenox. Dispo: home as soon off remdesevir, checking with ID to see if we can stop it after 3 days
--- NOTE | 2020-07-02 15:57 | PM.DS ---
DS: Providers Provider Date of Service: 07/22/20 Date of admission: 06/29/20 17:49 Primary care physician: Mukul Callaway MD Consults: 06/29/20 17:49 Consult to Infectious Diseases Routine Consulting Provider: Aaliyah Moore Reason for consultation: covid Has provider been notified: No DS: Diagnosis Discharge Diagnosis (1) Acute respiratory failure with hypoxia: Status: Resolved (2) COVID-19: Status: Acute Problem details: He has hypoxia and signs of COVID He has no signs of superinfection (3) Morbid obesity: Status: Acute (4) Alcohol dependence: Status: Acute DS: Medications Discharge Medications Home Medications: Previous Rx's Medication Instructions Recorded albuterol sulfate 2 puff INHALATION Q4-6H PRN #6.7 g 06/24/20 benzonatate [Tessalon Perles] 100 mg PO TID PRN #14 cap 06/24/20 hydrocodone-homatropine [Hycodan 5 ml PO Q4-6H PRN #60 ml 06/24/20 (with homatropine)] DS: Summary Hospital Course Hospital Course: CHIEF COMPLAINT: Shortness of breath and hypoxia. HISTORY OF PRESENT ILLNESS: This is a 64-year-old gentleman with past medical history significant for AL 8 to 9 years ago, history of gout, history of arthritis and hypertension, who was recently seen at [facility] on June 24 with multiple symptoms of shortness of breath of 3 to 4 days' duration, cough, and was diagnosed to have COVID-19 infection. The patient was discharged home since he was noted to have stable oxygenation. He was placed on Tessalon Perle and was recommended to check his home oxygen. As per patient, he was checking his oxygenation daily via the pulse oximeter and it was running somewhere between 95% to 96%, but however today he noted oxygenation to be 89% to 91% on room air. Therefore, he became concerned and return to the emergency room. He complains of persistent shortness of breath, worse with exertion; intractable coughing fits with incontinence of bowel. According to him, he has been using his cough medication and inhalers with no improvement in symptoms. He complains of persistent fevers and sweating. His cough is nonproductive. He denies any nausea, vomiting, or abdominal pain. In the emergency room, he was noted to have finger oximetry of 89% to 87%. Therefore, the patient was treated with IV steroid, cough medication. Due to elevated D-dimer, a CTA chest was obtained that showed ground-glass opacities consistent with COVID, but showed no PE. According to the patient, he drinks 6 to 8 beers per day, but he has not drank in the last 1 week. Hospital course: He was admitted due to acute hypoxic respiratory failure due to covid and require oxygen which was succesfully off within 3 days and now oxygen saturation 96 on room air. Further management consisted of Dexamethasone 6 mg daily and will complete a 10 day coure, has recieved 3 days of Remdesevir. Morbid obesity likely impacting his recovery recovery and health and is encouraged to loose weight by way of diet watch and exercise. Time Spent with Patient Time attestation: Total time spent providing and/or coordinating discharge services: Discharge coordination time: Greater than 30 minutes Physical Exam Vital Signs: Vital Signs: Last Vital Signs Temp 96.8 F 07/02/20 15:12 Pulse 62 07/02/20 15:12 Resp 20 07/02/20 15:12 BP 111/69 07/02/20 15:12 Pulse Ox 97 07/02/20 15:12 Body Mass Index 45.0 See progress note Discharge Plan Discharge Anticipated Discharge Date/Time: 07/02/20 15:49 Patient Disposition: Home, Self-Care Discharge Diagnosis: Covid 19, respiratory failure due to covid 19, morbid obesity, Referrals: Mukul Callaway MD [Primary Care Provider] - 1 Week Discharge Medications: New dexamethasone 6 mg Tablet 6 mg PO DAILY Qty: 6 RF: 0 codeine-guaifenesin 10-100 mg/5 mL Liquid 10 ml PO Q6H Qty: 118 RF: 0 Continued albuterol sulfate 90 mcg/actuation HFA aerosol inhaler 2 puff inhalation Q4-6H PRN (Reason: shortness of breath or wheezing) Qty: 6.7 RF: 0 benzonatate [Tessalon Perles] 100 mg capsule 100 mg PO TID PRN (Reason: cough) Qty: 14 RF: 0 hydrocodone-homatropine [Hycodan (with homatropine)] 5-1.5 mg/5 mL syrup 5 ml PO Q4-6H PRN (Reason: cough) Qty: 60 RF: 0 Discharge Orders: Discharge Order (Routine); Ordered 07/02/20 Ordered By: Ronald Adler Diet: advance to usual diet Activity on Discharge: As tolerated Stand Alone Forms: Patient Portal Discharge page Care Plan Goals: full recovery from covid Health Concerns: morbid obesity Plan of Treatment: take Dexamethasone as directed, try to loose weight Assessment: covid 19, obesity Discharge Date/Time: 07/02/20 18:18
--- NOTE | 2020-07-02 16:27 | MHC.CM.PN ---
pt dcd home no services ordered by
== END 2020-07-02 18:18 | disposition home or self-care (01) | DRG 177 ==
LOC: HO.ED 14:43 → HO.EDOVER 18:10 → HO.IMC 21:27
PROVIDERS: Physician Assistant; Admitting Provider Hospitalist; Emergency Provider Emergency Medicine Emergency Medical Services; PCP Internal Medicine; Visit Provider Internal Medicine
DX: U07.1 COVID-19 (principal); J96.01 Acute respiratory failure with hypoxia; Z68.42 Body mass index [BMI] 45.0-49.9, adult; E66.01 Morbid (severe) obesity due to excess calories; F10.20 Alcohol dependence, uncomplicated; I25.2 Old myocardial infarction; I25.10 Atherosclerotic heart disease of native coronary artery without angina pectoris; Z79.899 Other long term (current) drug therapy
CPT/HCPCS: 11104; 36415; 71045; 71275; 80048; 80076; 83735; 83880; 84145; 84484; 85025; 85379; 86140; 93005; 96374; 99285; 99291; J1100; J1650; J3490; Q9967

== ENCOUNTER 2020-11-26 17:58 | Outpatient (REF) | payer MEDICARE, SELFPAY | END 2020-11-26 17:59 | disposition home or self-care (01) | LOC: HO.MRI 17:58 | PROVIDERS: PCP Internal Medicine; Visit Provider Internal Medicine | DX: Z13.89 Encounter for screening for other disorder (principal) ==

== ENCOUNTER 2021-01-01 17:00 | Outpatient (RCR) | payer MEDICARE, SELFPAY | END 2021-01-13 15:21 | disposition home or self-care (01) | LOC: HO.PT 17:00 | PROVIDERS: PCP Internal Medicine; Visit Provider Internal Medicine | DX: M54.31 Sciatica, right side (principal) | CPT/HCPCS: 97014; 97110; 97140; 97162 ==

== ENCOUNTER → 2021-01-12 08:04 | Outpatient (BNVA) | payer MEDICARE, SELFPAY | PROVIDERS: PCP Internal Medicine; Visit Provider Internal Medicine | DX: M54.16 Radiculopathy, lumbar region (principal); M47.817 Spondylosis without myelopathy or radiculopathy, lumbosacral region | CPT/HCPCS: 99202 ==

== ENCOUNTER 2021-02-04 06:30 | Outpatient (REF) | payer MEDICARE, SELFPAY ==
--- NOTE | ~2021-02-04 | FL_ITS ---
EXAMINATION: XR FLUOROSCOPY WITH IMAGES CLINICAL INFORMATION: Radiculopathy COMPARISON: None. TECHNIQUE: Fluoroscopy performed by Dr. Andrey Alvarez. Fluoroscopy time: 0.6 minutes DAP: 8.4 Gycm2 Images: 2 FINDINGS: Contrast opacifying lumbar transforaminal injection areas. FL/FL guidance in treatment room IMPRESSION: Lumbar transforaminal injections. Please see the operative report for further information.
== END 2021-02-04 06:31 | disposition home or self-care (01) ==
LOC: HO.RADIR 06:30
PROVIDERS: Visit Provider Internal Medicine
DX: M54.16 Radiculopathy, lumbar region (principal)
CPT/HCPCS: 64483; 64484; J1100; Q9967

== ENCOUNTER → 2021-03-06 08:00 | Outpatient (BNVA) | payer MEDICARE, SELFPAY | PROVIDERS: PCP Internal Medicine; Visit Provider Internal Medicine | DX: M54.16 Radiculopathy, lumbar region (principal) | CPT/HCPCS: 99212 ==

== ENCOUNTER 2021-04-15 06:07 | Outpatient (REF) | payer MEDICARE, SELFPAY ==
--- NOTE | ~2021-04-15 | FL_ITS ---
EXAMINATION: XR FLUOROSCOPY WITH IMAGES CLINICAL INFORMATION: Lumbar radiculopathy COMPARISON: February 04, 2021 TECHNIQUE: Fluoroscopy performed by Nirmala Gama. Fluoroscopy time: 0.6 minutes DAP: 2.6 Gycm2 Images: 3 FINDINGS: Sontag are and contrast are seen for transforaminal injections about the right side of L5 and L4. FL/FL guidance in treatment room IMPRESSION: Lumbar transforaminal injections.
== END 2021-04-15 06:08 | disposition home or self-care (01) ==
LOC: HO.RADIR 06:07
PROVIDERS: Visit Provider Internal Medicine
DX: M54.16 Radiculopathy, lumbar region (principal); M10.9 Gout, unspecified; I21.9 Acute myocardial infarction, unspecified; I10 Essential (primary) hypertension; Z88.6 Allergy status to analgesic agent; Z86.16 Personal history of COVID-19
CPT/HCPCS: 64483; 64484; J1100; Q9967

== ENCOUNTER → 2021-05-15 08:19 | Outpatient (BNVA) | payer MEDICARE, SELFPAY | PROVIDERS: PCP Internal Medicine; Visit Provider Internal Medicine | DX: M47.812 Spondylosis without myelopathy or radiculopathy, cervical region (principal); M54.16 Radiculopathy, lumbar region | CPT/HCPCS: Q3014 ==

== ENCOUNTER 2021-06-03 06:18 | Outpatient (REF) | payer MEDICARE, SELFPAY ==
--- NOTE | ~2021-06-03 | FL_ITS ---
EXAMINATION: XR FLUOROSCOPY WITH IMAGES CLINICAL INFORMATION: M47.812 - Spondylosis without myelopathy or radiculopathy COMPARISON: None. TECHNIQUE: Fluoroscopy performed by Dr. Andrey Alvarez. Fluoroscopy time: 0.8 minutes DAP: 4.04 Gycm2 Images: 4 FINDINGS: There are spinal needles overlying the left lateral masses cervical spine approximately C3 and C4. There is contrast in the paraspinal soft tissues and nerve sheaths. No visible vascular communication. FL/FL guidance in treatment room IMPRESSION: Fluoroscopy for pain management procedure.
== END 2021-06-03 06:19 | disposition home or self-care (01) ==
LOC: HO.RADIR 06:18
PROVIDERS: Visit Provider Internal Medicine
DX: M47.812 Spondylosis without myelopathy or radiculopathy, cervical region (principal)
CPT/HCPCS: 64490; 64491; 64492; Q9967

== ENCOUNTER → 2021-06-05 12:01 | Outpatient (BNVA) | payer MEDICARE, SELFPAY | PROVIDERS: PCP Internal Medicine; Visit Provider Internal Medicine | DX: Z13.89 Encounter for screening for other disorder (principal) | CPT/HCPCS: Q3014 ==

== ENCOUNTER → 2021-06-12 10:51 | Outpatient (BNVA) | payer MEDICARE, SELFPAY | PROVIDERS: PCP Internal Medicine; Visit Provider Internal Medicine | DX: M47.812 Spondylosis without myelopathy or radiculopathy, cervical region (principal); M79.18 Myalgia, other site | CPT/HCPCS: 20553 ==

== ENCOUNTER 2022-03-17 16:42 | Outpatient (REF) | payer MEDICARE, SELFPAY ==
--- NOTE | ~2022-03-17 | XR_ITS ---
EXAMINATION: XR CHEST CLINICAL INFORMATION: Influenza. COMPARISON: Chest radiograph 06/29/2020. TECHNIQUE: 2 views of the chest were obtained. FINDINGS: Normal appearance of the cardiomediastinal silhouette. No focal airspace opacity, pleural effusion or pneumothorax. No acute osseous abnormalities. The visualized upper abdomen is within normal limits. XR/XR chest 2V IMPRESSION: No acute cardiopulmonary findings.
== END 2022-03-17 16:43 | disposition home or self-care (01) ==
LOC: HO.XRAY 16:42
PROVIDERS: PCP Internal Medicine; Visit Provider Emergency Medicine
DX: J10.1 Influenza due to other identified influenza virus with other respiratory manifestations (principal)
CPT/HCPCS: 71046

== ENCOUNTER 2022-05-27 08:35 | Emergency (ER) | payer MEDICARE, SELFPAY ==
--- NOTE | ~2022-05-27 | XR_ITS ---
EXAMINATION: XR FOOT, RIGHT CLINICAL INFORMATION: Right heel pain COMPARISON: None TECHNIQUE: AP, lateral, and oblique views of the right foot. FINDINGS: Plantar calcaneal spur is present along with large ovoid areas of calcification in the plantar fascia. Enthesopathy is present at the insertion of the Achilles tendon. Mild degenerative changes are seen in the forefoot as well as at the first metatarsal phalangeal joint. No fractures or dislocations. XR/XR foot RT 2V IMPRESSION: Plantar calcaneal spur with calcification in the plantar fascia and enthesopathy at the insertion of the Achilles tendon. Plantar fascia calcification can occur in the setting of plantar fasciitis or rarely as a sequela of prior steroid injections or prior trauma. No acute finding
[2022-05-27 08:42] VITALS: BP 143/81; PULSE 70; RESP 18; TEMP 36.1; O2SAT 96; BMI 45.6
--- NOTE | 2022-05-27 09:38 | ED.GENADULT ---
HPI - General Adult General Chief complaint: Extremity Problem Stated complaint: R ankle pain Time Seen by Provider: 05/27/22 09:32 Source: patient, RN notes reviewed and old records reviewed Mode of arrival: ambulatory History of Present Illness HPI narrative: 66-year-old male with past medical history significant for chronic back pain, alcohol dependence, obesity, gout plantar fasciitis presents for evaluation right heel pain. Patient reports his pain isn't present follow-up He denies any known injury to the area. He has been taking Tylenol with minimal relief He states that he has been unable to walk due to the pain. He denies any fevers, chills or rashes. He states most of his pain is in his right heel that does radiate around to the bottom and the top of his foot He states that many years ago he did have ?a bone spur that was treated with a cortisone injection. ? Related Data Home Medications Medication Instructions Recorded Confirmed ibuprofen 200 mg tablet 800 mg PO BID 01/12/21 04/15/21 Previous Rx's Medication Instructions Recorded colchicine 0.6 mg capsule 0.6 mg PO DAILY #14 caps 05/27/22 prednisone 20 mg tablet 40 mg PO DAILY #10 tabs 05/27/22 Allergies Allergy/AdvReac Type Severity Reaction Status Date / Time duloxetine [Cymbalta] Allergy Unknown diarrhea Verified 06/12/21 11:09 Review of Systems Constitutional: Constitutional: Reports as per HPI, Denies chills and Denies fatigue Cardiovascular: Cardiovascular: Denies chest pain and Denies dyspnea Respiratory: Respiratory: Denies cough and Denies dyspnea Gastrointestinal: Gastrointestinal: Denies abdominal pain, Denies constipation and Denies vomiting Genitourinary: Genitourinary: Denies difficulty urinating and Denies dysuria Musculoskeletal: Comments: Pain to the right heel and foot Endocrine: Endocrine: Denies fatigue PMF Past Medical History Medical History (Updated 05/27/22 @ 09:43 by Raghu Rosa) Arthritis Cervical myofascial pain syndrome Cervical spondylosis COVID-19 Gout HTN (hypertension) Myocardial infarct Social History Social History Household Members: Spouse Housing: House Alcohol intake: current Alcohol intake frequency: 3 or more drinks per day Advance Directives: No Advance Directives Information Provided: No service: No Current occupational status: unemployed Physical Exam ED Vital Signs: Vital Signs - 24 hr 05/27/22 08:42 Temperature 97 F Pulse Rate 70 Respiratory Rate 18 Blood Pressure 143/81 H Pulse Oximetry 96 Oxygen Delivery Method Room Air BMI result Body Mass Index 45.6 Const General: healthy appearing, comfortable, no acute distress, alert and awake Nutritional Appearance: well nourished Orientation/consciousness: patient oriented x3 Eyes Eyelids: Yes eyelids normal Conjunctivae: conjunctivae normal Sclerae: sclerae normal Corneas: corneas normal Pupils: Equal, round and reactive pupils present EOM: EOMs intact bilaterally Resp Effort & Inspection: normal respiratory effort, able to speak in complete sentences, no audible wheezes and not labored Skin General skin exam: no rashes or lesions noted and elasticity normal Lesions: no lesions Rashes: no rashes Neuro General: patient oriented x3 Cranial nerves: Yes Equal, round and reactive pupils present Extrem Other: Patient has a callus to the right heel, there is some mild erythema visible, no edema, fluctuance or induration. This area is exquisitely tender to palpation. The Achilles tendon is palpable, negative Fair test. No tenderness to the plantar fascia. No significant edema to forefoot or midfoot. Color and distal sensation intact to the foot General: Yes full ROM Course Reevaluation(s) Reevaluation #1: Reviewed patient's x-ray with him. This makes calcific tendinitis most likely diagnosis at this time. We will still treat with colchicine and prednisone to rule out completely and he will follow-up with his orthopedic doctor Time: 10:34 Medical Decision Making Medical Decision Making MDM Narrative: Patient denies any injury, history exam isn't consistent with an inflammatory condition. The patient is a history of gout. With an x-ray to evaluate for any bony injury lesions. I think the most likely diagnosis is gout given the patient's history and atraumatic discomfort. Is possibility has an Achilles tendinitis or a bone spurs he also has a history of bone spur. We will treat with colchicine and prednisone. The patient will his PCP for annual nursing symptoms. I have a very low suspicion for infectious process Differential Diagnosis Gout Plantar fasciitis Achilles tendinitis Calcific tendinitis Bone spur Foot pain Cellulitis less likely Foot sprain Independent Interpretation I performed an independent interpretation of an: Plain X-Ray Interpretation: No fracture on the right foot Radiology Impression Discussion of test interpretation with radiology: I have reviewed the radiologist's reading. Radiologist Impression: Calcific tendinitis of the Achilles tendon insertion point Discharge Plan Discharge Clinical Impression: Pain of right heel Patient Disposition: Home, Self-Care Instructions: Gout (ED) Additional Instructions: The most likely cause of your pain is calcific tendinitis Your x-ray shows a calcific tendonitis of your Achilles tendon and plantar fascia Take the colchicine as prescribed as well as the prednisone Follow-up with your doctor for any new or worsening symptoms Prescriptions: New prednisone 20 mg tablet 40 mg PO DAILY Qty: 10 0RF colchicine 0.6 mg capsule 0.6 mg PO DAILY Qty: 14 0RF No Action ibuprofen 200 mg tablet 800 mg PO BID
== END 2022-05-27 10:57 | disposition home or self-care (01) ==
PROVIDERS: Emergency Provider Emergency Medicine Emergency Medical Services; PCP Internal Medicine
DX: M79.671 Pain in right foot (principal)
CPT/HCPCS: 73620; 99282; 99283

== ENCOUNTER 2023-03-24 09:57 | Outpatient (REF) | payer MEDICARE, SELFPAY ==
--- NOTE | ~2023-03-24 | XR_ITS ---
EXAMINATION: XR CERVICAL SPINE CLINICAL INFORMATION: Neck pain. COMPARISON: Cervical spine radiographs dated 05/16/2017. TECHNIQUE: Frontal, odontoid, bilateral oblique and lateral views of the cervical spine are obtained. FINDINGS: Vertebral body heights and alignment are normal. There is moderate anterior spondylosis at C2-C3. 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 No acute fracture or spondylolisthesis is seen. The posterior elements are intact. The neural foramina appear relatively patent on the oblique views. There is no prevertebral soft tissue swelling. The dens and C7-T1 interface are normal. XR/XR cervical spine 4V IMPRESSION: 1. 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 2. There is anterior spondylosis at C2-C3. 3. The bilateral neural foramina appear relatively patent.
== END 2023-03-24 09:58 | disposition home or self-care (01) ==
LOC: HO.CHCLDS 09:57
PROVIDERS: PCP Internal Medicine; Visit Provider Internal Medicine
DX: I10 Essential (primary) hypertension (principal); E78.00 Pure hypercholesterolemia, unspecified; M1A.4710 Other secondary chronic gout, right ankle and foot, without tophus (tophi); M45.2 Ankylosing spondylitis of cervical region; M54.2 Cervicalgia; Z91.81 History of falling
CPT/HCPCS: 36415; 72050; 80053; 80061; 84550; 85025; 85652; 86140

== ENCOUNTER 2023-05-10 10:34 | Outpatient (REF) | payer MEDICARE, SELFPAY ==
--- NOTE | ~2023-05-10 | XR_ITS ---
EXAMINATION: XR LUMBOSACRAL SPINE CLINICAL INFORMATION: Ankylosing spondylitis of cervical region Back pain COMPARISON: None available. TECHNIQUE: Three views of the lumbosacral spine. FINDINGS: There are 5 nonrib-bearing lumbar-type vertebral bodies and a transitional lumbosacral vertebral body which for the purposes study will be called S1. The bones are mildly diffusely demineralized. There is mild loss of height of the L1 vertebral body with slight concavity of the superior inferior endplates of the body. Alignment is within normal limits. There is marked disc space narrowing at L5-S1 consistent with degenerative disc disease. There are no bridging anterior marginal osteophytes. There is slight bridging of the anterior marginal osteophytes at L1-L2. Findings are not consistent with ankylosing spondylitis. There is multilevel degenerative facet joint disease, most notable in the lower lumbar spine. There is calcification of the abdominal aorta with maximal dimension of 2.9 cm in anterior to posterior. There is narrowing of the left sacroiliac joint with sclerosis on the sacral and iliac side of the joint. There is also narrowing,? Partial fusion of the right sacroiliac joint. XR/XR lumbar spine 2-3V IMPRESSION: 1. Degenerative disc disease at L5-S1. 2. Multilevel degenerative facet joint disease, most notable in the lower lumbar spine. 3. No evidence of ankylosing spondylitis. 4. Degenerative changes of the left sacroiliac joint and right sacroiliac joint. Dedicated views of the sacroiliac joints could be obtained. 5. The abdominal aorta measures 2.9 cm anterior to posterior in maximum dimension. Ultrasound of the abdominal aorta is recommended for further evaluation.
--- NOTE | ~2023-05-10 | XR_ITS ---
EXAMINATION: XR THORACOLUMBAR SPINE CLINICAL INFORMATION: Ankylosing spondylitis of cervical region Back pain COMPARISON: Same-day lumbar spine, CT angiography chest 06/29/2020 TECHNIQUE: AP, lateral and Swimmer's view of the thoracic spine FINDINGS: There is mild round back posture. The bones are mildly diffusely demineralized. No intrinsic bony abnormality. There is multilevel narrowing of the disc spaces. No fracture or subluxation. There are anterior flowing osteophytes/syndesmophytes in the mid to upper thoracic spine, best appreciated on CT scan angiogram chest 06/29/2020. The paraspinal soft tissues are normal. XR/XR thoracic spine 2V IMPRESSION: 1. Mild degenerative change. 2. Bridging osteophytes/syndesmophytes in the mid to upper thoracic spine.
--- NOTE | ~2023-05-10 | XR_ITS ---
EXAMINATION: XR SACROILIAC JOINTS CLINICAL INFORMATION: Ankylosing spondylitis of cervical region Back pain COMPARISON: Sacroiliac joints 12/21/2017 TECHNIQUE: 3 views of the sacroiliac joints FINDINGS: Bones and soft tissues are normal. No fracture. Alignment is anatomic. Sacral joints spaces are well-maintained without erosions or surrounding sclerosis. Degenerative changes seen in the lower lumbar spine. XR/XR sacroiliac joint 1-2V IMPRESSION: Unremarkable sacroiliac joints.
[2023-05-10 13:22] LABS: Rheumatoid Factor < 13.0 IU/mL (<15.0)
[2023-05-10 15:26] LABS: Alanine Aminotransferase 33 U/L (0-40); Alkaline Phosphatase 101 U/L (39-117); Anion Gap 15 (12-20); Aspartate Amino Transferase 24 U/L (5-37); Bilirubin Total 0.4 mg/dL (0.0-1.0); Blood Urea Nitrogen 11 mg/dL (9-16); C Reactive Protein 0.39 mg/dL (< or = 0.50); Calcium 8.6 mg/dL (8.4-10.2); Carbon Dioxide 24 mmol/L (22-29); Chloride 107 mmol/L (96-108); Estimated Glomerular Filt Rate > 60; Glucose Random 104 mg/dL (60-115); Potassium 4.6 mmol/L (3.3-5.1); Sodium 141 mmol/L (135-145); Total Protein 6.9 g/dL (6.5-8.0)
[2023-05-11 02:27] LABS: HBc Num1 0.07 S/CO (0.00-0.79); HBsAGNum1 0.34 S/CO (0.00-0.99); Hepatitis A Antibody IgM 0.11 Index (0-0.79); Hepatitis B Core Antibody Nonreactive (Nonreactive); Hepatitis B Surface Antigen Negative (Negative); ~HepC Num1 0.23 S/CO (0.00-0.79); ~Hepatitis A Antibody IgM Nonreactive (Nonreactive); ~Hepatitis B Surface Antibody NONREACTIVE (Nonreactive); ~Hepatitis C Antibody Nonreactive (Nonreactive)
[2023-05-11 10:48] LABS: Cyclic Citrullinated Peptide <16 UNITS
[2023-05-11 12:44] LABS: Prot Elec - Albumin 3.8 g/dL (3.8-4.8); Prot Elec - Alpha1 0.3 g/dL (0.2-0.3); Prot Elec - Alpha2 0.7 g/dL (0.5-0.9); Prot Elec - Beta 1 0.5 g/dL (0.4-0.6); Prot Elec - Beta 2 0.6 g/dL (0.2-0.5); Prot Elec - Gamma 0.8 g/dL (0.8-1.7); Prot Elec - Total Protein 6.7 g/dL (6.1-8.1)
[2023-05-11 19:49] LABS: SM/Ribonucleoprotein Ab <1.0 NEG AI (<1.0 NEG); Smith Protein <1.0 NEG AI (<1.0 NEG)
[2023-05-11 22:27] LABS: IgA 567 mg/dL (70-320); IgG 973 mg/dL (600-1540); IgM 58 mg/dL (50-300)
[2023-05-13 21:04] LABS: TS Negative Control Passed; TS Panel A 0; TS Panel B 0; TS Positive Control Passed; TSpotTB Negative (Negative)
[2023-05-14 14:03] LABS: HLA B27 Negative (Negative)
[2023-05-15 12:18] LABS: Anti Nuclear Antibody Pattern Nuclear, Speckled; Anti Nuclear Antibody Screen POSITIVE (NEGATIVE)
== END 2023-05-10 10:35 | disposition home or self-care (01) ==
LOC: HO.LAB 10:34
PROVIDERS: PCP Internal Medicine; Visit Provider Nurse Practitioner Family
DX: Z11.9 Encounter for screening for infectious and parasitic diseases, unspecified (principal); Z11.1 Encounter for screening for respiratory tuberculosis; M54.2 Cervicalgia; M47.817 Spondylosis without myelopathy or radiculopathy, lumbosacral region; M54.16 Radiculopathy, lumbar region; F10.29 Alcohol dependence with unspecified alcohol-induced disorder; E66.01 Morbid (severe) obesity due to excess calories
CPT/HCPCS: 36415; 72070; 72100; 72200; 80053; 82784; 84165; 86038; 86039; 86140; 86200; 86235; 86431; 86481; 86704; 86706; 86709; 86803; 86812; 87340; 99202

== ENCOUNTER 2023-05-10 10:34 | Outpatient (AMB) | payer MEDICARE, SELFPAY ==
--- NOTE | 2023-05-10 10:44 | A.OFFVIS_ITS ---
Intake Vital Signs 05/10/23 11:05 Height 6 ft 2 in Weight 334 lb 14.115 oz BMI 43.0 BP 102/80 Blood Pressure Location Rt brachial Position Sitting Pulse 86 Pulse Source Pulse Oximeter Temp 97 F Temp Source Skin Pulse Oximetry (%) 95 Oxygen Delivery Method Room Air Intake Visit Reasons: Ankylosing sondylitis Intake Note: New patient, externally referred by [facility], presents today for . 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 Klein, 67yoM referred for evaluation of Neck pain and stiffness after cervical xray suggests ankylosing features. He has been having neck and lower back pain for many years, primarily treated with corticosteroid injections. and NSAIDs which no longer provides relief. Recently, he could not get a neck injection per patient because of the DROM in the cervical spine. He also has a history of gout and was recently started on Allopurinol 100 mg QD wh ich he admits forgetting to take it. Patient denies uveitis, UC, Crohn's, plantar fasciitis, and psoriasis. [facility] Medical History (Updated 05/10/23 @ 12:11 by KOLBY Phan) Screening examination for infectious disease Ankylosing spondylitis of cervical region Cervical myofascial pain syndrome Cervical spondylosis COVID-19 Gout Arthritis HTN (hypertension) Myocardial infarct Surgical History (Updated 05/10/23 @ 11:06 by LISETH Minor) Hx of heart artery stent Family History (Updated 05/10/23 @ 11:06 by LISETH Minor) Other Arthritis Social History (Updated 05/10/23 @ 11:07 by LISETH Minor) Household Members: Spouse Housing: House Alcohol intake: current Alcohol intake frequency: a few times a week Patient Tobacco Use Status: Never used Tobacco service: No Current occupational status: unemployed Review of Systems Const All systems reviewed & are unremarkable except as noted in HPI and below Physical Exam Vital Signs: Last Vital Signs Temp 97 F 05/10/23 11:05 Pulse 86 05/10/23 11:05 BP 102/80 05/10/23 11:05 Pulse Ox 95 05/10/23 11:05 Oxygen Delivery Method Room Air 05/10/23 11:05 BMI result Body Mass Index 43.0 APPEARANCE: Patient in no acute distress, nourished. EYES no redness, eyelids normal EARS:? External ear normal, canal clear and tympanic membrane normal. NOSE/SINUS:? Airflow through both nares, no nasal discharge, no bleeding THROAT:? Oral mucosa moist, no ulcerations NECK:? No thyromegaly or masses, no adenopathy, trachea midline. HEART:? Regular rhythm, S1-S2 heard, no murmurs, rubs or gallops. LUNG:? Clear to percussion and auscultation ABD:? Normal bowel sounds, no organomegaly, masses or tenderness. large EXTREMITIES:? No edema, no calf tenderness, normal peripheral pulses. NEURO:? Oriented and alert x3.? No focal weakness.? Reflexes symmetric.? Gait normal. SKIN:? There are no skin lesions evident. No objective signs of Raynaud's phenomenon. JOINT EXAM: Cervical Spine:.? Limited motion without pain on rotation, flexion and extension an lateral bending; no tenderness on palpation. Thoracic Spine:.? No scoliosis.? No tenderness on palpation. Some decrease ROM Lumbar Spine:.? Alignment normal.? Full range of motion without pain, mild tenderness. Chest Wall:.? No tenderness, swelling, increased warmth or erythema. Hands:.? Normal pain-free range of motion without tenderness, swelling, increased warmth or erythema. Able to make a full fist and has a good household worker strength. Wrists:.? Normal pain-free range of motion without tenderness, swelling, increased warmth or erythema. Elbows:. Normal pain-free range of motion without tenderness, swelling, increased warmth or erythema. Shoulders:.?? Full range of motion without pain. No tenderness, weakness, swelling, increased warmth or erythema. Hips:.? Full range of motion without pain. Hip bursa:.? No tenderness. Knees:.?? Normal pain-free range of motion without tenderness, swelling, increased warmth or erythema.? There is no effusion or crepitation Ankles:.? Normal pain-free range of motion without tenderness, swelling, increased warmth or erythema. Feet:.? Normal pain-free range of motion without tenderness, swelling, increased warmth or erythema. Tender points:? No tenderness to digital palpation at the occiput, trapezius, second rib, lateral epicondyle, knees, greater trochanter and gluteal area bilaterally. Results Reviewed Results Reviewed: 12/2017 EXAMINATION: XR CERVICAL SPINE CLINICAL INFORMATION: Neck pain. COMPARISON: None. TECHNIQUE: 5 views of the cervical spine were obtained. FINDINGS: The C5, C6 and C7 vertebral bodies are not optimally visualized. There is cervical lordosis. Bone alignment is otherwise normal. There is degenerative spondylosis at C2-C3. There may be ankylosis at the C4-C5 disc space level. There is mild degenerative spondylosis at C5-C6. The C6-C7 and C7-T1 disc space levels are not evaluated. There is right-sided neuroforaminal narrowing from bony osteophyte at C5-C6. There is left-sided neuroforaminal narrowing from bony osteophyte at C3-C4. There is posterior soft tissue ossification of the neck suggestive of evidence of old trauma. Prevertebral soft tissues are unremarkable. IMPRESSION: C6 and C7 vertebral bodies are not well visualized. Cervical lordosis. Probable ankylosis at C4-C5. Degenerative spondylosis and degenerative disc disease at C2-C3 and degenerative spondylosis at C5-C6. Neuroforaminal narrowing from bony osteophyte on the right at C5-C6 and on the left at C3-C4. 12/2017 EXAMINATION: XR LUMBOSACRAL SPINE XR SACROILIAC JOINTS CLINICAL INFORMATION: Low back pain. COMPARISON: None TECHNIQUE: 3 views of the lumbosacral spine were obtained. The views of the sacroiliac joints. FINDINGS: LUMBOSACRAL SPINE: There is normal lumbar lordosis. The vertebral heights and alignment is normal. Loss of L5-S1 disc height with posterior spondylosis is noted. No lytic or sclerotic process. There is mild bilateral L4-L5 and L5-S1 facet joint arthropathy. No lytic process. The paravertebral soft tissues are normal. SACROILIAC JOINTS: Bones and soft tissues are normal. No fracture. Alignment is anatomic. Sacroiliac joint spaces are well-maintained without erosions or surrounding sclerosis. IMPRESSION: Degenerative disc changes L5-S1 disc level with posterior spondylosis. Bilateral facet joint arthropathy L4-L5/S1 disc level. No fracture or lytic process. Unremarkable SI joints [address] [id number] XRay Report 05/2022 EXAMINATION: XR FOOT, RIGHT CLINICAL INFORMATION: Right heel pain COMPARISON: None TECHNIQUE: AP, lateral, and oblique views of the right foot. FINDINGS: Plantar calcaneal spur is present along with large ovoid areas of calcification in the plantar fascia. Enthesopathy is present at the insertion of the Achilles tendon. Mild degenerative changes are seen in the forefoot as well as at the first metatarsal phalangeal joint. No fractures or dislocations. XR/XR foot RT 2V IMPRESSION: Plantar calcaneal spur with calcification in the plantar fascia and enthesopathy at the insertion of the Achilles tendon. Plantar fascia calcification can occur in the setting of plantar fasciitis or rarely as a sequela of prior steroid injections or prior trauma. No acute finding Ordering Physician: Mukul Callaway MD Date of Service: 03/24/23 Procedure(s): XR cervical spine 4V Accession Number(s): [id number] cc: Mukul Callaway MD~ 03/24/2023 EXAMINATION: XR CERVICAL SPINE CLINICAL INFORMATION: Neck pain. COMPARISON: Cervical spine radiographs dated 05/16/2017. TECHNIQUE: Frontal, odontoid, bilateral oblique and lateral views of the cervical spine are obtained. FINDINGS: Vertebral body heights and alignment are normal. There is moderate anterior spondylosis at C2-C3. 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 No acute fracture or spondylolisthesis is seen. The posterior elements are intact. The neural foramina appear relatively patent on the oblique views. There is no prevertebral soft tissue swelling. The dens and C7-T1 interface are normal. XR/XR cervical spine 4V IMPRESSION: 1. 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 2. There is anterior spondylosis at C2-C3. 3. The bilateral neural foramina appear relatively patent. Assessment & Plan Assessment & Plan (1) Ankylosing spondylitis of cervical region: Code(s): M45.2 - Ankylosing spondylitis of cervical region (2) Screening examination for infectious disease: Code(s): Z11.9 - Encounter for screening for infectious and parasitic diseases, unspecified (3) Lumbar and sacral spondyloarthritis: Code(s): M47.817 - Spondylosis without myelopathy or radiculopathy, lumbosacral region (4) Lumbar radiculitis: Code(s): M54.16 - Radiculopathy, lumbar region (5) Alcohol dependence: Code(s): F10.20 - Alcohol dependence, uncomplicated Qualifiers: Substance use status: unspecified alcohol-induced disorder Qualified Code(s): F10.29 - Alcohol dependence with unspecified alcohol-induced disorder (6) Morbid obesity: Code(s): E66.01 - Morbid (severe) obesity due to excess calories Plan #/Lumbar Pain:Mr. Klein is here for evaluation after cervical Xrays showed ankylosing features. Patient has had neck and back pain for many years and over the years he notices that he can only his neck up to certain point. On PE, he has limited ROM in the cervical spine. He has to turn his torso to be able to talk face to face. There is also some tenderness to lower back. He has received corticosteroid over the years for lower back and neck. Patient denies being evaluated by a Artillery Specialist and says he has no knowledge that this was happening in his neck. However, during inquiry today he mentioned that HUMIRA was introduced to him in discussion by his PCP some years ago but it was going to be $1000 out of pocket to him. There is a cervical xray from 12/2017 suggesting similar features of ankylosing and was comparison for the recent one done 03/2023. It is possible that the discussion was introduced at that time of the first Xray. Nonetheless we can start him on Enbrel 50 mg QW. The patient has alcohol dependency at this time so he would not be a good fit for MTX or leflunomide. We will obtain some baseline labs now for ESR/CRP and other possible comorbid conditions such as anemia, leukocytosis, kidney function and liver concerns. #Skilled Nursing Use/Infectious Disease: I discussed withe patient that we monitor labs while on Enbrel for certain conditions that can developed wit use. Educated patient to stop Enbrel if he develop fevers, infection, non-healing wound, cancer dx. We will obtain labs now for TB and Hep Panel. #Morbid Obesity (43.) Patient can benefit for increase activity and nutrition changes that facilitate weight reduction. I spent 50 minutes reviewing chart, evaluating and educating patient and documenting. Orders: Orders Anti Extractable Nuclear Ag 05/10/23 M45.2 - Ankylosing spondylitis of cervical region Creatine Kinase Total 05/10/23 M45.2 - Ankylosing spondylitis of cervical region C Reactive Protein 05/10/23 M45.2 - Ankylosing spondylitis of cervical region Comprehensive Met. Panel 05/10/23 M45.2 - Ankylosing spondylitis of cervical region Erythrocyte Sedimentation Rate 05/10/23 M45.2 - Ankylosing spondylitis of cervical region Immunoglobulins,IgG IgA IgM 05/10/23 M45.2 - Ankylosing spondylitis of cervical region Rheumatoid Factor 05/10/23 M45.2 - Ankylosing spondylitis of cervical region Cyclic Citrullinated Peptide 05/10/23 M45.2 - Ankylosing spondylitis of cervical region Hepatitis A,B,C Profile 05/10/23 Z11.9 - Encounter for screening for infectious and parasitic diseases, unspecified T Spot TB 05/10/23 Z11.9 - Encounter for screening for infectious and parasitic diseases, unspecified HLA B27 05/10/23 M45.2 - Ankylosing spondylitis of cervical region LORNA Reflex Titer and Pattern 05/10/23 M45.2 - Ankylosing spondylitis of cervical region Protein Electrophoresis, Serum 05/10/23 M45.2 - Ankylosing spondylitis of cervical region XR lumbar spine 2-3V 05/10/23 M45.2 - Ankylosing spondylitis of cervical region, M47.817 - Spondylosis without myelopathy or radiculopathy, lumbosacral region XR sacroiliac joint 1-2V 05/10/23 M45.2 - Ankylosing spondylitis of cervical region, M47.817 - Spondylosis without myelopathy or radiculopathy, lumbosacral region XR thoracic spine 2V 05/10/23 M45.2 - Ankylosing spondylitis of cervical region, M47.817 - Spondylosis without myelopathy or radiculopathy, lumbosacral region Coding Level of Care Code New Pt Level 5 (07817) Diagnoses Ankylosing spondylitis of cervical region M45.2 Screening examination for infectious disease Z11.9 Lumbar and sacral spondyloarthritis M47.817 Lumbar radiculitis M54.16 Alcohol dependence with unspecified alcohol-induced disorder F10.29 Substance use status: unspecified alcohol-induced disorder Morbid obesity E66.01
[2023-05-10 11:05] VITALS: BP 102/80; PULSE 86; TEMP 36.1; O2SAT 95; BMI 43.0
== END 2023-05-10 11:43 | disposition home or self-care (01) ==
PROVIDERS: PCP Internal Medicine; Visit Provider Nurse Practitioner Family
DX: M45.2 Ankylosing spondylitis of cervical region (principal); Z11.9 Encounter for screening for infectious and parasitic diseases, unspecified; M47.817 Spondylosis without myelopathy or radiculopathy, lumbosacral region; M54.16 Radiculopathy, lumbar region; F10.29 Alcohol dependence with unspecified alcohol-induced disorder; E66.01 Morbid (severe) obesity due to excess calories
CPT/HCPCS: 99205

== ENCOUNTER 2023-05-21 08:48 | Outpatient (REF) | payer MEDICARE, SELFPAY ==
[2023-05-21 10:50] LABS: Erythrocyte Sedimentation Rate 14 MM/HR (0-15)
== END 2023-05-21 08:49 | disposition home or self-care (01) ==
LOC: HO.LAB 08:48
PROVIDERS: PCP Internal Medicine; Visit Provider Nurse Practitioner Family
DX: M45.2 Ankylosing spondylitis of cervical region (principal)
CPT/HCPCS: 36415; 82550; 85652

== ENCOUNTER 2023-05-23 11:14 | Outpatient (AMB) | payer MEDICARE, SELFPAY ==
--- NOTE | 2023-05-23 11:21 | A.OFFVIS_ITS ---
Intake Vital Signs 05/23/23 11:33 Height 6 ft 2 in Weight 330 lb 0.512 oz BMI 42.4 BP 150/90 H Blood Pressure Location Rt brachial Position Sitting Pulse 84 Pulse Source Pulse Oximeter Temp 98.7 F Temp Source Skin Pulse Oximetry (%) 96 Oxygen Delivery Method Room Air Intake Visit Reasons: /Cervical Intake Note: Pt presents today for cervical . Range Examiner Required: No Accompanied by: Self / Same As Patient Allergies duloxetine [Cymbalta] Allergy (Unknown, Verified 05/23/23 11:21) diarrhea HPI HPI Comments History of Present Illness Details Mr. Klein, 67yoM returned for follow-up of initial evaluation of Neck pain and stiffness, to review diagnostic results and discuss treatment. He is newly diagnosed ankylosing spondylitis but has had longstanding disease. The PA and prescription was done for Enbrel and he will start to take Enbrel as soon as he received the shipment. Patient denies any new symptoms of uveitis, psoriasis or diarrhea since last visit. Initial visit 05/10/2023 Timothy NeumannyoLisbeth referred for evaluation of Neck pain and stiffness after cervical xray suggests ankylosing features. He has been having neck and lower back pain for many years, primarily treated with corticosteroid injections. and NSAIDs which no longer provides relief. Recently, he could not get a neck injection per patient because of the DROM in the cervical spine. He also has a history of gout and was recently started on Allopurinol 100 mg QD which he adm its forgetting to take it. Patient denies uveitis, UC, Crohn's, plantar fasciitis, and psoriasis. [facility] Medical History (Updated 05/23/23 @ 11:39 by Erendira Marion [facility]) Long-term use of immunosuppressant medication Screening examination for infectious disease Ankylosing spondylitis of cervical region Cervical myofascial pain syndrome Cervical spondylosis COVID-19 Gout Arthritis HTN (hypertension) Myocardial infarct Surgical History Hx of heart artery stent Family History Other Arthritis Social History Household Members: Spouse Housing: House Alcohol intake: current Alcohol intake frequency: a few times a week Patient Tobacco Use Status: Never used Tobacco service: No Current occupational status: unemployed Review of Systems Const All systems reviewed & are unremarkable except as noted in HPI and below Physical Exam Vital Signs: Last Vital Signs Temp 98.7 F 05/23/23 11:33 Pulse 84 05/23/23 11:33 BP 150/90 H 05/23/23 11:33 Pulse Ox 96 05/23/23 11:33 Oxygen Delivery Method Room Air 05/23/23 11:33 BMI result Body Mass Index 42.4 APPEARANCE: Patient in no acute distress, nourished. EYES no redness, eyelids normal EARS:? External ear normal, canal clear and tympanic membrane normal. NOSE/SINUS:? Airflow through both nares, no nasal discharge, no bleeding THROAT:? Oral mucosa moist, no ulcerations NECK:? No thyromegaly or masses, no adenopathy, trachea midline. HEART:? Regular rhythm, S1-S2 heard, no murmurs, rubs or gallops. LUNG:? Clear to percussion and auscultation ABD:? Normal bowel sounds, no organomegaly, masses or tenderness. large EXTREMITIES:? No edema, no calf tenderness, normal peripheral pulses. NEURO:? Oriented and alert x3.? No focal weakness.? Reflexes symmetric.? Gait normal. SKIN:? There are no skin lesions evident. No objective signs of Raynaud's phenomenon. JOINT EXAM: Cervical Spine:.? Limited motion without pain on rotation, flexion and extension an lateral bending; no tenderness on palpation. See x-ray Thoracic Spine:.? No scoliosis.? No tenderness on palpation. Some decrease ROM see x-ray Lumbar Spine:.? Alignment normal.? Decreased range of motion without pain, mild tenderness. See x-ray Chest Wall:.? No tenderness, swelling, increased warmth or erythema. Hands:.? Normal pain-free range of motion without tenderness, swelling, increased warmth or erythema. Able to make a full fist and has a good gas producer strength. Wrists:.? Normal pain-free range of motion without tenderness, swelling, increased warmth or erythema. Elbows:. Normal pain-free range of motion without tenderness, swelling, increased warmth or erythema. Shoulders:.?? Full range of motion without pain. No tenderness, weakness, swelling, increased warmth or erythema. Hips:.? Full range of motion without pain. Hip bursa:.? No tenderness. Knees:.?? Normal pain-free range of motion without tenderness, swelling, increased warmth or erythema.? There is no effusion or crepitation Ankles:.? Normal pain-free range of motion without tenderness, swelling, increased warmth or erythema. Feet:.? Normal pain-free range of motion without tenderness, swelling, increased warmth or erythema. Tender points:? No tenderness to digital palpation at the occiput, trapezius, second rib, lateral epicondyle, knees, greater trochanter and gluteal area bilaterally. Results Reviewed Results Reviewed: 12/2017 EXAMINATION: XR CERVICAL SPINE CLINICAL INFORMATION: Neck pain. COMPARISON: None. TECHNIQUE: 5 views of the cervical spine were obtained. FINDINGS: The C5, C6 and C7 vertebral bodies are not optimally visualized. There is cervical lordosis. Bone alignment is otherwise normal. There is degenerative spondylosis at C2-C3. There may be ankylosis at the C4-C5 disc space level. There is mild degenerative spondylosis at C5-C6. The C6-C7 and C7-T1 disc space levels are not evaluated. There is right-sided neuroforaminal narrowing from bony osteophyte at C5-C6. There is left-sided neuroforaminal narrowing from bony osteophyte at C3-C4. There is posterior soft tissue ossification of the neck suggestive of evidence of old trauma. Prevertebral soft tissues are unremarkable. IMPRESSION: C6 and C7 vertebral bodies are not well visualized. Cervical lordosis. Probable ankylosis at C4-C5. Degenerative spondylosis and degenerative disc disease at C2-C3 and degenerative spondylosis at C5-C6. Neuroforaminal narrowing from bony osteophyte on the right at C5-C6 and on the left at C3-C4. 12/2017 EXAMINATION: XR LUMBOSACRAL SPINE XR SACROILIAC JOINTS CLINICAL INFORMATION: Low back pain. COMPARISON: None TECHNIQUE: 3 views of the lumbosacral spine were obtained. The views of the sacroiliac joints. FINDINGS: LUMBOSACRAL SPINE: There is normal lumbar lordosis. The vertebral heights and alignment is normal. Loss of L5-S1 disc height with posterior spondylosis is noted. No lytic or sclerotic process. There is mild bilateral L4-L5 and L5-S1 facet joint arthropathy. No lytic process. The paravertebral soft tissues are normal. SACROILIAC JOINTS: Bones and soft tissues are normal. No fracture. Alignment is anatomic. Sacroiliac joint spaces are well-maintained without erosions or surrounding sclerosis. IMPRESSION: Degenerative disc changes L5-S1 disc level with posterior spondylosis. Bilateral facet joint arthropathy L4-L5/S1 disc level. No fracture or lytic process. Unremarkable SI joints [address] [address] XRay Report 05/2022 EXAMINATION: XR FOOT, RIGHT CLINICAL INFORMATION: Right heel pain COMPARISON: None TECHNIQUE: AP, lateral, and oblique views of the right foot. FINDINGS: Plantar calcaneal spur is present along with large ovoid areas of calcification in the plantar fascia. Enthesopathy is present at the insertion of the Achilles tendon. Mild degenerative changes are seen in the forefoot as well as at the first metatarsal phalangeal joint. No fractures or dislocations. XR/XR foot RT 2V IMPRESSION: Plantar calcaneal spur with calcification in the plantar fascia and enthesopathy at the insertion of the Achilles tendon. Plantar fascia calcification can occur in the setting of plantar fasciitis or rarely as a sequela of prior steroid injections or prior trauma. No acute finding Ordering Physician: Mukul Callaway MD Date of Service: 03/24/23 Procedure(s): XR cervical spine 4V Accession Number(s): [id number] cc: Mukul Callaway MD~ 03/24/2023 EXAMINATION: XR CERVICAL SPINE CLINICAL INFORMATION: Neck pain. COMPARISON: Cervical spine radiographs dated 05/16/2017. TECHNIQUE: Frontal, odontoid, bilateral oblique and lateral views of the cervical spine are obtained. FINDINGS: Vertebral body heights and alignment are normal. There is moderate anterior spondylosis at C2-C3. 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 No acute fracture or spondylolisthesis is seen. The posterior elements are intact. The neural foramina appear relatively patent on the oblique views. There is no prevertebral soft tissue swelling. The dens and C7-T1 interface are normal. XR/XR cervical spine 4V IMPRESSION: 1. 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 2. There is anterior spondylosis at C2-C3. 3. The bilateral neural foramina appear relatively patent. [address] [address] XRay Report Signed Patient: Frank Klein MR#: [id number] : 1955 Acct:[id number] Age/Sex: 67 / M ADM Date: 05/10/23 Loc: HO.LAB Attending Dr: Erendira JARRETT Ordering Physician: Erendira Marion Date of Service: 05/10/23 Procedure(s): XR lumbar spine 2-3V Accession Number(s): [id number] cc: Mukul Callaway MD; Erendira Marion~ EXAMINATION: XR LUMBOSACRAL SPINE CLINICAL INFORMATION: Ankylosing spondylitis of cervical region Back pain COMPARISON: None available. TECHNIQUE: Three views of the lumbosacral spine. FINDINGS: There are 5 nonrib-bearing lumbar-type vertebral bodies and a transitional lumbosacral vertebral body which for the purposes study will be called S1. The bones are mildly diffusely demineralized. There is mild loss of height of the L1 vertebral body with slight concavity of the superior inferior endplates of the body. Alignment is within normal limits. There is marked disc space narrowing at L5-S1 consistent with degenerative disc disease. There are no bridging anterior marginal osteophytes. There is slight bridging of the anterior marginal osteophytes at L1-L2. Findings are not consistent with ankylosing spondylitis. There is multilevel degenerative facet joint disease, most notable in the lower lumbar spine. There is calcification of the abdominal aorta with maximal dimension of 2.9 cm in anterior to posterior. There is narrowing of the left sacroiliac joint with sclerosis on the sacral and iliac side of the joint. There is also narrowing,? Partial fusion of the right sacroiliac joint. XR/XR lumbar spine 2-3V IMPRESSION: 1. Degenerative disc disease at L5-S1. 2. Multilevel degenerative facet joint disease, most notable in the lower lumbar spine. 3. No evidence of ankylosing spondylitis. 4. Degenerative changes of the left sacroiliac joint and right sacroiliac joint. Dedicated views of the sacroiliac joints could be obtained.COMPARISON: Sacroiliac joints 12/21/2017 TECHNIQUE: 3 views of the sacroiliac joints FINDINGS: Bones and soft tissues are normal. No fracture. Alignment is anatomic. Sacral joints spaces are well-maintained without erosions or surrounding sclerosis. Degenerative changes seen in the lower lumbar spine. XR/XR sacroiliac joint 1-2V IMPRESSION: Unremarkable sacroiliac joints. FINDINGS: There is mild round back posture. The bones are mildly diffusely demineralized. No intrinsic bony abnormality. There is multilevel narrowing of the disc spaces. No fracture or subluxation. There are anterior flowing osteophytes/syndesmophytes in the mid to upper thoracic spine, best appreciated on CT scan angiogram chest 06/29/2020. The paraspinal soft tissues are normal. XR/XR thoracic spine 2V IMPRESSION: 1. Mild degenerative change. 2. Bridging osteophytes/syndesmophytes in the mid to upper thoracic spine. Assessment & Plan Assessment & Plan (1) Ankylosing spondylitis of cervical region: Code(s): M45.2 - Ankylosing spondylitis of cervical region (2) Lumbar and sacral spondyloarthritis: Code(s): M47.817 - Spondylosis without myelopathy or radiculopathy, lumbosacral region (3) Morbid obesity: Code(s): E66.01 - Morbid (severe) obesity due to excess calories Plan # /lumbar DDD: Mr. Quiñones had longstanding disease ankylosing spondylitis. Imaging shows syndesmophytes in both the cervical and thoracic spine. He already has a decreased range of motion in both the thoracic and cervical areas. We will start Enbrel 50 mg with the hope to slow down the disease process and provide him some pain relief from active disease. Discussed with patient that the Enbrel will not address the discomfort from degenerative disc disease and radiculopathy. He will continue to use the prescribed medications for that. Patient has a history of gout so we will obtain uric acid levels with the other labs for the next visit. 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 Educated patient to stop Enbrel if he develop fevers, infection, non-healing wound, cancer dx. Labs for TB and Hep Panel are good to start Enbrel. I spent 25 minutes reviewing chart, evaluating and educating patient and documenting. _ 05/10/2023 visit assessment #/Lumbar Pain:Mr. Klein is here for evaluation after cervical Xrays showed ankylosing features. Patient has had neck and back pain for many years and over the years he notices that he can only his neck up to certain point. On PE, he has limited ROM in the cervical spine. He has to turn his torso to be able to talk face to face. There is also some tenderness to lower back. He has received corticosteroid over the years for lower back and neck. Patient denies being evaluated by a Anodiser and says he has no knowledge that this was happening in his neck. However, during inquiry today he mentioned that HUMIRA was introduced to him in discussion by his PCP some years ago but it was going to be $1000 out of pocket to him. There is a cervical xray from 12/2017 suggesting similar features of ankylosing and was comparison for the recent one done 03/2023. It is possible that the discussion was introduced at that time of the first Xray. Nonetheless we can start him on Enbrel 50 mg QW. The patient has alcohol dependency at this time so he would not be a good fit for MTX or le flunomide. We will obtain some baseline labs now for ESR/CRP and other possible comorbid conditions such as anemia, leukocytosis, kidney function and liver concerns. 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 Educated patient to stop Enbrel if he develop fevers, infection, non-healing wound, cancer dx. We will obtain labs now for TB and Hep Panel. #Morbid Obesity (43.) Patient can benefit for increase activity and nutrition changes that facilitate weight reduction. 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
[2023-05-23 11:33] VITALS: BP 150/90; PULSE 84; TEMP 37.1; O2SAT 96; BMI 42.4
== END 2023-05-23 11:48 | disposition home or self-care (01) ==
PROVIDERS: PCP Internal Medicine; Visit Provider Nurse Practitioner Family
DX: M45.2 Ankylosing spondylitis of cervical region (principal); M47.817 Spondylosis without myelopathy or radiculopathy, lumbosacral region; E66.01 Morbid (severe) obesity due to excess calories
CPT/HCPCS: 99213

== ENCOUNTER → 2023-05-23 11:14 | Outpatient (BNVA) | payer MEDICARE, SELFPAY | PROVIDERS: PCP Internal Medicine; Visit Provider Nurse Practitioner Family | DX: M45.2 Ankylosing spondylitis of cervical region (principal); M47.817 Spondylosis without myelopathy or radiculopathy, lumbosacral region; E66.01 Morbid (severe) obesity due to excess calories; Z68.41 Body mass index [BMI] 40.0-44.9, adult | CPT/HCPCS: 99212 ==

== ENCOUNTER 2024-05-28 11:08 | Outpatient (REF) | payer MEDICARE, SELFPAY ==
--- OUTSIDE RECORDS SUMMARY | 2024-05-28 12:41 | XMS_ITS | Encounter Summary ---
Author Organization [employer] Address [address] [place] [address] Care Team Providers Care Director Organizational Name Role Phone Mukul Callaway MD Primary Care Provider [phone] Erendira Marion Unavailable Encounter Details Date Type Department Care Team ([facility] st Contact Info) Description 04/01/2023 Telephone [facility]S [address] [place], [place] [phone] Mkuul Callaway MD [address] [place] [address] Social History Tobacco Use Types Packs/Day Years Used Date Smoking Tobacco: Never Smokeless Tobacco: Never Alcohol Use Standard Drinks/Week Comments Yes 24 (1 standard drink = 0.6 oz pure alcohol) Alcohol consumption varies. Pt admits drinking a lot Sex and Gender Information Value Date Recorded Sex Assigned at Male 01/18/2022 10:25 AM EDT Legal Sex Male 10:25 AM EDT Gender Identity Male 01/18/2022 10:25 AM EDT Sexual Orientation Straight 01/18/2022 10 :25 AM EDT documented as of this encounter Miscellaneous Notes * Telephone Encounter - Mary Kay Butts RN - 04/01/2023 4:16 PM EST TC X2 to pt regarding message below. Pt informed of XR results and POC. Pt verbalized understandingand agrees with plan. Pt states has Rheum appt next month. * Telephone Encounter - Reji Buck 04/01/2023 3:52 PM EST Tc from pt returning call regarding message prior. You can contact ot at [phone]. documented in this encounter Plan of Treatment Upcoming Encounters Date Type Department Care Team ([facility] st Contact Info) Description 06/11/2024 9:15 AM EDT Office Visit [facility] MED & PEDS [address] [place] [address] Mukul Callaway MD [address] [place] [address] documented as of this encounter Visit Diagnoses Not on filedocumented in this encounter Care Teams Director Organizational Relationship Specialty Start Date End Date Mukul Callaway MD [address] [place] [address] PCP - General Internal Medicine 01/30/15 Erendira Marion [address] [facility] [place] [address] Rheumatology 05/10/23 01/23/24 Erendira Marion [facility] Rheum. Rheumatology 05/10/23 documented as of this encounter
--- OUTSIDE RECORDS SUMMARY | 2024-05-28 12:41 | XMS_ITS | Clinical Summary ---
Author Organization [employer] Address [address] [facility] [address] [place] [address] Care Team Providers Care Technical Supervisor Name Role Phone Mukul Callaway MD Primary Care Provider [phone] Allergies No known active allergies Medications loperamide (Imodium) 2 MG capsuleIndicati ons:Diarrhea Take 2 mg by mouth if needed in the morning, at noon, in the evening, and at bedtime for diarrhea. Active acetaminophen (Tylenol 8 Hour) 650 MG ER tabletIndicatio ns:Pain Take 650 mg by mouth every 8 (eight) hours if needed for mild pain or moderate pain. Do not crush, chew, or split. Active Hospital, Clinic, or Other Facility Administered Medication Ordered Dose Route Frequency Start Date End Date Status albuterol (2.5 MG/3ML) 0.083% nebulizer solution 2.5 mgIndications:Influenz a A 2.5 mg NEBULIZATION Once 03/17/2022 Active Active Problems Problem Noted Date Diagnosed Date Hearing screen with abnormal findings 01/25/2024 Ankylosing spondylitis 03/24/2023 Gout 01/30/2015 03/24/2023 Hypercholesterolemia 01/30/2015 03/24/2023 Hypertensive disorder 01/30/2015 03/24/2023 Backache 03/01/2013 03/24/2023 Neck pain 03/01/2013 03/24/2023 Acute OH 07/18/2012 Encounters Date Type Department Care Team Description 05/17/2024 9:45 AM EST Office Visit [facility] OPTOMETRY [address] [place] [address] Kristy Tejeda, OD Myopia, bilateral (Primary Dx); Combined forms of age-related cataract of both eyes; Open angle with borderline findings, low risk, bilateral 05/17/2024 Travel 04/18/2024 Travel from Last 3 Months Immunizations Name Administration Dates Next Due Influenza Injectable Quadriv alant Preservative Free IIV4 MDCK 01/18/2017 Influenza injectable quadriv alent IIV4 with preservative 12/28/2017,01/30/2015 Influenza injectable quadrivalent preservative f ree 02/18/2017 Influenza, IIV3, injectable 12/08/2011 Influenza, seasonal, injectable, preservative fr ee 12/20/2015 Tdap 05/13/2017,01/28/2009 Zoster, Recombinant 07/20/2018 Zoster, live 05/13/2017 Family History Medical History Relation Name Comments Suicidality Brother 1 Esau at 16 d/t SI Heart murmur Brother 2 Elie Alcohol abuse Brother 3 Joshua No Known Problems Brother 4 Aristeo Passed natalie y from [place] 4 years ago No Known Problems Brother 5 Santhosh Wallace Heart attack Father Gene at 31 No Known Problems Maternal Grandfather No Known Problems Maternal Grandmother Breast cancer Mother Sumaya No Known Problems Mother's Brother 1 Aidan No Known Problems Mother's Brother 2 Joshua No Known Problems Mother's Brother 3 Chon No Known Problems Mother's Sister 1 Janine Cancer Mother's Sister 2 Chasidy No Known Problems Other Santhosh No Known Problems Paternal Grandfather No Known Problems Paternal Grandmother No Known Problems Sister 1 Faye Cancer Sister 2 Luzmaria Brain tumor whi ch spred to the rest of the body No Known Problems Sister 3 Chasidy Cancer Sister 4 Ariadna romanneptlaiyasmin admitte d to the hospital for something No Known Problems Sister 5 Vikki No Known Problems Son Gene Ernie Relation Name Status Comments Brother 1 Esau Brother 2 Elie Alive Brother 3 Joshua Alive Stepdad (Aristeo ) & Biomom Brother 4 Aristeo Stepdad (Aristeo ) & Biomom Brother 5 Santhosh Wallace Alive Stepdad (Joshua s) & Biomom Father Gene Maternal Grandfather Maternal Grandmother Mother Sumaya Mother's Brother 1 Aidan Mother's Brother 2 Joshua Mother's Brother 3 Chon Mother's Sister 1 Janine Mother's Sister 2 Chasidy Other Santhosh Alive Stepfather Paternal Grandfather Paternal Grandmother Sister 1 Faye Alive Sister 2 Luzmaria Sister 3 Chasidy Alive Sister 4 Ariadna Alive Stepdad & Biomo m Sister 5 Vikki Alive Stepdad (Aristeo ) & Biomom Son Ed Klein Alive Social History Tobacco Use Types Packs/Day Years Used Date Smoking Tobacco: Never Smokeless Tobacco: Never Tobacco Cessation:Counseling Given: Not Answered Alcohol Use Standard Drinks/Week Comments Yes 60 (1 standard drink = 0.6 oz pure alcohol) Pt reports currently consuimg 60 draft beers a week Alcohol Answer Date Recorded Q1: How often do you have a drink containing alc ohol? 4 01/12/2024 Q2: How many drinks containi ng alcohol do you have on a typical day when you are drinking? 5 01/12/2024 Q3: How often do you have six or more drinks on one occasion? 5 01/12/2024 Depression Answer Date Recorded Patient Health Questionnaire-9 Score 6 01/25/2024 Patient Health Questionnaire-9 Score 6 01/25/2024 Last PHQ-9: Questionnaire Data Not on file 1 03/26/2023 Housing Stability Answer Date Recorded What is your housing situation today? I have levar mcdowell 01/03/[address] you li ve. Do you have problems with any of the following? None of the above 01/03/2024 Food Insecurity Answer Date Recorded Within the past 12 months, y ou worried that your food would run out before you got money to buy more: Never True 01/03/2024 Within the past 12 months,th e food you bought just didn't last and you didn't have enough money to get more: Never True Transportation Answer Date Recorded In the past 12 months, has l ack of transportation kept you from medical appts, meetings, work or from getting things needed for daily living? No 01/03/2024 Utilities Answer Date Recorded In the past 12 months, has t he electric, gas, oil or water company threatened to shut off services in your home? No 01/03/2024 Depression Answer Date Recorded Patient Health Questionnaire-2 Score 2 01/25/2024 Internet Access Answer Date Recorded Internet Access Q1 Yes 01/03/2024 Internet Access Q2 Not on file 01/03/2024 Sex and Gender Information Value Date Recorded Sex Assigned at Male 01/18/2022 10:25 AM EDT Legal Sex Male 10:25 AM EDT Gender Identity Male 01/18/2022 10:25 AM EDT Sexual Orientation Straight 01/18/2022 10 :25 AM EDT Last Filed Vital Signs Vital Sign Reading Time Taken Comments Blood Pressure 162/88 01/25/2024 10:10 AM EST Pulse 66 01/25/2024 10:10 AM EST Temperature 36.3 ??C (97.3 ??F) 03/24/2023 9:14 AM ES T Respiratory Rate 18 03/24/2023 9:14 AM EST Oxygen Saturation 98% 01/25/2024 10:10 AM EST Inhaled Oxygen Concentration - - Weight 143 kg (316 lb) 01/25/2024 10:10 AM EST Height 186.7 cm (6' 1.5 ) 01/25/2024 10:10 AM ES T Body Mass Index 41.13 01/25/2024 10:10 AM EST Plan of Treatment Upcoming Encounters Date Type Department Care Team (Late st Contact Info) Description 06/11/2024 9:15 AM EDT Office Visit [facility] MED & PEDS [address] [place] [address] Mukul Callaway MD [address] [place] [address] Health Maintenance Due Date Last Done Comments CT Colonography 1955 Colonoscopy 1955 Colorectal Cancer Screening 1955 FIT DNA/Cologuard 1955 FIT 1955 FOBT 1955 Sigmoidoscopy 1955 Pneumococcal Vaccine: 50+ Years (1 of 2 - PCV) 07/25/1974 RSV Patients and Patients Aged 60 years or older (1 - Risk 60-74 years 1-dose series) 2015 Zoster Vaccines (3 of 3) 09/14/2018 07/20/2018, 04/22 COVID-19 Vaccine ( season) 2023 12/03/2020, 11/05/2020 Influenza Vaccine (#1) 2023 8, 02/18/2017, 01/18/2017, Additional history exists Alcohol/Substance Use Screening 01/24/2025 01/25/2024 Depression Screening 01/24/2025 01/25/2024, 01/25/20 SDOH Screening 01/24/2025 01/25/2024 Tobacco Screening 05/17/2025 05/17/2024 DTaP/Tdap/Td Vaccines (3 - Td or Tdap) 05/13/2027 05/13/2017, 01/28/2009 Lipid Panel 03/24/2028 03/24/2023 Hepatitis C Screening Completed 05/10/2023 HIB Vaccines Aged Out No longer eligi ble based on patient's age to complete this topic HPV Vaccines Aged Out No longer eligi ble based on patient's age to complete this topic Hepatitis A Vaccines Aged Out No long er eligible based on patient's age to complete this topic Hepatitis B Vaccines Aged Out No long er eligible based on patient's age to complete this topic IPV Vaccines Aged Out No longer eligi ble based on patient's age to complete this topic Meningococcal Vaccine Aged Out No nahed dhiraj eligible based on patient's age to complete this topic RSV under 20 months Aged Out No longe r eligible based on patient's age to complete this topic Rotavirus Vaccines Aged Out No longer eligible based on patient's age to complete this topic Procedures Procedure Name Priority Date/Time Associated Diagnosis Comments OCT, OPTIC NERVE - OU - BOTH EYES Routine 05/17/2024 4:00 PM EST Open angle with borderline findings, low risk, bilateral HEPATITIS PANEL, GENERAL Routine 05/10/2023 12:23 PM EST LIPID PANEL, STANDARD Routine 03/24/2023 10:05 AM EST Hypercholesterolemi a from Last 3 Months or Most Recently Relevant to Health Maintenance Results * OCT, Optic Nerve - OU - Both Eyes (05/17/2024 4:00 PM EST) Narrative Kristy Tejeda, OD - 05/17/2024 4:00 PM EST OCT OPTIC NERVE INTERPRETATION Optical Coherence Tomography Interpretation Report Reliability: OD: SS 54, good quality image OS: SS 53, good quality image Measurements: Avg RNFL thickness OD: ??106 microns OS: ??104 microns Test findings: OD: Robust RNFL 360, baseline OS: Robust RNFL 360, baseline Impression and Plan: No glaucomatous RNFL thinning pattern OU. Monitor yearly. us Kristy Tejeda OD OPHTH TOMOGRAPHY Final Result * Hepatitis Panel, General (05/10/2023 12:23 PM EST) Hepatitis A IgM Nonreactive Nonreactive [facility] Comment:IgM antibodies to QUIROS V not detected; does not exclude earlyacute or recovered HAV infection. ~Hepatitis B Surface Antibody NONREACTIVE Nonreactive [facility] Comment:Nonreactive: < 8.00 mIU/mL Hepatitis B Core Antibody Nonreactive Nonreactive [facility] Hepatitis C Antibody Nonreactive Nonreactive [facility] Comment:Antibodies to HCV no t detected; does not exclude early acuteHCV infection. Hepatitis B Surface Ag Negative Negative [facility] 05/10/2023 12:2 3 PM EST 05/10/2023 12:23 PM EST us Generic External Data Provider LAB BLOOD ORDERAB LES Final Result Performing Organization Address City/State/[facility] Co de Phone Number [facility] [address] [place] [phone] * (ABNORMAL) Lipid Panel, Standard (03/24/2023 10:05 AM EST) Triglycerides 138 <150 mg/dL [facility] Comment:Desirable Triglyceri de: less than 150 mg/dLBorderline High Triglyceride 150-199 mg/dLHigh Triglyceride: 200-499 mg/dLVery High Triglyceride: greater than or equal to 5OO mg/dL Cholesterol 195 <200 mg/dL [facility] Comment:Desirable Cholestero l: less than 200 mg/dLBorderline High Cholesterol: 200-239 mg/dLHigh Cholesterol: greater than 239 mg/dL LDL Cholesterol Calculated 129(H) <100 mg/dL [facility] Comment:Desirable LDL: less than 100 mg/dLNear Optimal/Above Optimal LDL: 110- 129 mg/dLBorderline High LDL: 130-159 mg/dLHigh LDL: 160-189 mg/dLVery High LDL: greater than or equal to 190 mg/dL HDL Cholesterol 39(L) >40 mg/dL [facility] Comment:Desirable HDL: great er than 40 mg/dL Note: This HDL assay may give artificially low results in patients with liver disease. Blood Venous blood specimen / Unknown 03/24/2023 10:05 AM EST 03/24/2023 2:50 PM EST us Mukul Callaway MD LAB BLOOD ORDERABLES Final Result [facility] [address] [place] [phone] from Last 3 Months or Most Recently Relevant to Health Maintenance Insurance MEDICARE Care Teams Technical Supervisor Relationship Specialty Start Date End Date Mukul Callaway MD [address] [place] [address] [place] [address] PCP - General Internal Medicine 01/30/15 Erendira Marion [facility]. Rheumatology 05/10/23
--- OUTSIDE RECORDS SUMMARY | 2024-05-28 12:41 | XMS_ITS | Encounter Summary ---
Author Organization [employer] Address [address] [place] [address] Care Team Providers Care Rn Maternal Child Name Role Phone Mukul Callaway MD Primary Care Provider [phone] Encounter Details Date Type Department Care Team (Latest Contact Info) Description 05/17/2024 Travel Social History Tobacco Use Types Packs/Day Years Used Date Smoking Tobacco: Never Smokeless Tobacco: Never Alcohol Use Standard Drinks/Week Comments Yes 60 [...] AM EDT documented as of this encounter Plan of Treatment Upcoming Encounters Date Type Department Care Team ([facility] st Contact Info) Description 06/11/2024 9:15 AM EDT Office Visit [facility] MED & PEDS [address] [place] [address] Mukul Callaway MD [address] [place] [address] documented as of this encounter Visit Diagnoses Not on filedocumented in this encounter Additional Health Concerns Assessment Noted Time PHQ-9 Depression Total Score: 6 01/25/20 24 10:37 AM EST documented as of this encounter Care Teams Rn Maternal Child Relationship Specialty Start Date End Date Mukul Callaway MD [address] [place] [address] PCP - General Internal Medicine 01/30/15 Erendira Marion [facility] [place]. Rheumatology 05/10/23 documented as of this encounter
--- OUTSIDE RECORDS SUMMARY | 2024-05-28 12:41 | XMS_ITS | Encounter Summary ---
Author Organization [employer] Address [address] [facility] [address] [place] [address] Care Team Providers Care Supervisor Drawing Name Role Phone Mukul Callaway MD Primary Care Provider [phone] Encounter Details Date Type Department Care Team ([facility] st Contact Info) Description 05/17/2024 9:45 AM EST Office Visit [facility] OPTOMETRY [address] [place], [place] [id number] Kristy Tejeda, OD [address] [place] [address] Myopia, bilateral (Primary Dx); Combined forms of age-related cataract of both eyes; Open angle with borderline findings, low risk, bilateral Social History Tobacco Use Types Packs/Day Years [...] AM EDT documented as of this encounter Progress Notes * Kristy Tejeda, OD - 05/17/2024 9:45 AM EST Eye Care Progress Note Patient ID: Frank Klein is a 68 y.o. male. HPI Patient reports blurry vision both eyes (OU) at distance with current glasses. Patient was told at previous eye exams that he had early cataracts. TAISHA: 2 years ago Last edited by Kristy Tejeda, OD on 05/17/2024 3:56 PM. Current Outpatient Medications Medication Sig Dispense Refill acetaminophen (Tylenol 8 Hour) 650 MG ER tablet Take 650 mg by mouth every 8 (eight) hours if needed for mild pain or moderate pain. Do not crush, chew, or split. loperamide (Imodium) 2 MG capsule Take 2 mg by mouth if needed in the morning, at noon, in the evening, and at bedtime for diarrhea. Current Facility-Administered Medications Medication Dose Route Frequency Provider Last Rate Last Admin albuterol (2.5 MG/3ML) 0.083% nebulizer solution 2.5 mg 2.5 mg Nebulization Once Frank Pate MD Past Medical History: Diagnosis Date Acute [place] (CMS/HCC) 07/18/2012 Alcohol abuse Ankylosing spondylitis (CMS/HCC) Chronic back pain Colonic polyp 12/02/2008 Tubular adenoma removed in 2008-due for repeat in 2013 Gout Hypercholesteremia Hypertension Osteoarthritis Past Surgical History: Procedure Laterality Date CORONARY STENT PLACEMENT h/o placement of stent in anterior descending branch of L coronary artery Family History Problem Relation Name Age of Onset Breast cancer Mother Sumaya Heart attack Father Ed at 31 No Known Problems Sister Faye Cancer Sister Luzmaria Brain tumor which spred to the rest of the body No Known Problems Sister Chasidy Cancer Sister Ariadna kelsey admitted to the hospital for something No Known Problems Sister Vikki Suicidality Brother Esau at 16 d/t SI Heart murmur Brother Elie Alcohol abuse Brother Joshua No Known Problems Brother Aristeo from [place] 4 years ago No Known Problems Brother Santhosh Wallace No Known Problems Son Ed Klein No Known Problems Mother's Sister Janine Cancer Mother's Sister Chasidy No Known Problems Mother's Brother Aidan No Known Problems Mother's Brother Joshua No Known Problems Mother's Brother Chon No Known Problems Maternal Grandmother No Known Problems Maternal Grandfather No Known Problems Paternal Grandmother No Known Problems Paternal Grandfather No Known Problems Other Santhosh Tobacco Use: Low Risk (05/17/2024) Tobacco Smoking Tobacco Use: Never Smokeless Tobacco Use: Never Passive Exposure: Not on file No Known Allergies ROS Positive for: Eyes Negative for: Constitutional, Gastrointestinal, Neurological, Skin, Genitourinary, Musculoskeletal,HENT, Endocrine, Cardiovascular, Respiratory, Psychiatric, Allergic/Imm, Heme/Lymph Last edited by Kristy Tejeda OD on 05/17/2024 9:48 AM. Base Eye Exam Visual Acuity (Snellen - Linear) Right Left Both Dist cc 20/30 20/40 Near cc 20/40 Tonometry (iCare , 10:01 AM) Right Left Pressure 17 17 Pupils Pupils APD Right PERRL None Left PERRL None Visual Francisco (Counting fingers) Left Right Full Full Extraocular Movement Right Left Full Full Neuro/Psych Oriented x3: Yes Mood/Affect: Normal Dilation Both eyes: 1.0% tropicamide @ 10:01 AM Slit Lamp and Fundus Exam External Exam Right Left External Normal Normal Slit Lamp Exam Right Left Lids/Lashes Clean and clear Clean and clear Conjunctiva/Sclera White and quiet White and quiet Cornea Clear Clear Anterior Chamber Deep and quiet, angles open Deep and quiet, angles open Iris Flat, round Flat, round Lens 1+ NS, 2+ cortical 1+ NS, 2+ cortical Fundus Exam Right Left Vitreous Clear Clear Disc [place] and healthy; larger ONH [place] and healthy C/D Ratio Vertical 0.50 0.30 C/D Ratio Horizontal 0.50 0.30 Macula Flat, even pigmentation Flat, even pigmentation Vessels AV 2/3, normal course and caliber AV 2/3, normal course and caliber Periphery No holes/tears/detachments 360 No holes/tears/detachments 360 Refraction Manifest Refraction (Subjective) Sphere Cylinder Xenia Dist VA Right -4.25 -1.00 135 20/20 Left -3.75 -1.25 030 20/20-3 Final Rx Sphere Cylinder Xenia Add Right -4.25 -1.00 135 +2.50 Left -3.75 -1.25 030 +2.50 Expiration Date: 05/17/2025 Assessment and Plan Diagnoses and all orders for this visit: 1. Myopia, bilateral - Dispensed updated spec Rx 2. Combined forms of age-related cataract of both eyes - Visually insignificant both eyes (OU) 3. Open angle with borderline findings, low risk, bilateral - Glaucoma risk profile/summary - POAG suspect due to: ONH cup-to-disc ratio (C/D) asymmetry - Fhx glaucoma: None - IOP today: (baseline) - RNFL OCT: Robust RNFL 360 both eyes (OU); baseline - No evidence of glaucomatous process. Monitor annually. RTC in 1 year for comprehensive eye exam or soon as needed Kristy Tejeda, RICK 05/17/2024, 4:00 PM documented in this encounter Plan of Treatment Upcoming Encounters Date Type Department Care Team (Late st Contact Info) Description 06/11/2024 9:15 AM EDT Office Visit [facility]ED[facility] [address] [place], [place] [phone] Mukul Callaway MD [address] [place] [address] documented as of this encounter Procedures Procedure Name Priority Date/Time Associated Diagnosis Comments OCT, OPTIC NERVE - OU - BOTH EYES Routine 05/17/2024 4:00 PM EST Open angle with borderline findings, low risk, bilateral documented in this encounter Results * OCT, Optic Nerve - OU - Both Eyes (05/17/2024 4:00 PM EST) Ke Kristy Tejeda, OD - 05/17/2024 4:00 PM EST OCT OPTIC NERVE INTERPRETATION Optical Coherence Tomography Interpretation Report Reliability: OD: SS 54, good quality image OS: SS 53, good quality image Measurements: Avg RNFL thickness OD: ??106 microns OS: ??104 microns Test findings: OD: Robust RNFL 360, baseline OS: Robust RNFL 360, baseline Impression and Plan: No glaucomatous RNFL thinning pattern OU. Monitor yearly. 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 Rheumat[place] 05/10/23 documented as of this encounter
--- OUTSIDE RECORDS SUMMARY | 2024-05-28 12:41 | XMS_ITS | Encounter Summary ---
Author Organization [employer] Address [address] [facility] [address] [place] [address] Care Team Providers Care Human Factors Specialist Name Role Phone Mukul Callaway MD Primary Care Provider [phone] Erendira Marion Unavailable Reason for Visit * Reason Onset Date Comments Med Refill 02/02/2023 Encounter Details Date Type Department Care Team (Late st Contact Info) Description 02/02/2023 Refill [facility] MEDICINE [address] [place] [address] Mukul Callaway MD [address] [place] [address] Social History Tobacco Use Types Packs/Day Years Used Date Smoking Tobacco: Never Smokeless Tobacco: Never Sex and Gender Information Value Date Recorded Sex Assigned at Male 01/18/2022 10:25 AM EDT Legal Sex Male 10:25 AM EDT Gender Identity Male 01/18/2022 10:25 AM EDT Sexual Orientation Straight 01/18/2022 10 :25 AM EDT documented as of this encounter Miscellaneous Notes * Telephone Encounter - Mukul Callaway MD - 02/02/2023 2:11 PM EST Needs to be seen and have his BP checked prior to refilling Prednisone * Telephone Encounter - Lina Trujillo - 02/02/2023 9:38 AM EST Tc from pt requesting med refill on; predniSONE (Deltasone) tablet 50 mg documented in this encounter Plan of Treatment Upcoming Encounters Date Type Department Care Team (Late st Contact Info) Description 06/11/2024 9:15 AM EDT Office Visit [facility] [address] [place] [address] Mukul Callaway MD [address] [place] [address] documented as of this encounter Visit Diagnoses Not on filedocumented in this encounter Care Teams Human Factors Specialist Relationship Specialty Start Date End Date Mukul Callaway MD [address] [place] [address] PCP - General Internal Medicine 01/30/15 Eerndira Marion [address] [facility] [place] [address] Rheumatology 05/10/23 01/23/24 Erendira Marion [facility] Rheum. Rheumatology 05/10/23 documented as of this encounter
[2024-05-28 15:10] LABS: Prostate Specific Antigen 1.35 ng/mL (<0.05-4.0)
[2024-05-29 08:14] LABS: HIV AB/AG Nonreactive (Nonreactive); HIV Num 1 0.08 S/CO (0.00-0.99)
== END 2024-05-28 11:09 | disposition home or self-care (01) ==
LOC: HO.CHCLDS 11:08
PROVIDERS: Visit Provider Family Medicine
DX: Z11.3 Encounter for screening for infections with a predominantly sexual mode of transmission (principal); Z12.5 Encounter for screening for malignant neoplasm of prostate
CPT/HCPCS: 36415; 84153; 87389

== ENCOUNTER 2024-07-05 14:34 | Outpatient (REF) | payer MEDICARE, SELFPAY ==
--- NOTE | ~2024-07-05 | XR_ITS ---
EXAMINATION: XR CERVICAL SPINE CLINICAL INFORMATION: back pain COMPARISON: August 23, 2023. TECHNIQUE: 2 views cervical spine. FINDINGS: Limited examination from the craniocervical junction to C6. There is ossification of the anterior longitudinal ligament. There is marginal osteophyte formation C2-3. Craniocervical junction is intact. Osteopenia versus osteoporosis. There is calcification of the nuchal ligament. Upper airway is patent. XR/XR cervical spine 3V IMPRESSION: Ankylosis spondylitis, cervical spine Electronically signed by: Domo Jovel MD 07/06/2024 08:11 AM EDT
--- NOTE | ~2024-07-05 | XR_ITS ---
CLINICAL HISTORY: Back pain 5 views lumbar spine Comparison: None Findings: Normal alignment. No acute fractures or dislocation. Multiple level degenerative disc and facet change. There is aortic calcification. IMPRESSION: No acute findings. This document has been electronically signed by: Aidan Haert MD on 07/07/2024 08:52:44
--- OUTSIDE RECORDS SUMMARY | 2024-07-05 17:34 | XMS_ITS | Encounter Summary ---
Author Organization [employer] Address [address] [facility] [address] [place] [address] Care Team Providers Care Stock Mover Name Role Phone Mukul Callaway MD Primary Care Provider [phone] Erendira Marion Unavailable Reason for Visit * Reason Onset Date Comments Med Refill 02/02/2023 Encounter Details Date Type Department Care Team (Late st Contact Info) Description 02/02/2023 Refill [facility] MEDICINE [address] [place] [address] Mukul Callaway MD [address] [place] [address] Social History Tobacco Use Types Packs/Day Years [...] to refilling Prednisone * Telephone Encounter - Lian Trujillo - 02/02/2023 9:38 AM EST Tc from pt requesting med refill on; predniSONE (Deltasone) tablet 50 mg documented in this encounter Plan of Treatment Upcoming Encounters Date Type Department Care Team (Late st Contact Info) Description 08/21/2024 9:00 AM EDT Office Visit [facility] MED & PEDS [address] [place] [address] Mukul Callaway MD [address] [place] [address] 08/23/2024 9:45 AM EDT Office Visit [facility] MED & PEDS [address] [place] [address] Mukul Callaway MD [address] [place] [address] documented as of this encounter Visit Diagnoses Not on filedocumented in this encounter Care Teams Stock Mover Relationship Specialty Start Date End Date Mukul Callaway MD [address] [place] [address] PCP - General Internal Medicine 01/30/15 Erendira Marion [address] [facility] [place] [address] Rheumatology 05/10/23 01/23/24 Erendira Marion [facility] Rheum. Rheumatology 05/10/23 documented as of this encounter
--- OUTSIDE RECORDS SUMMARY | 2024-07-05 17:34 | XMS_ITS | Encounter Summary ---
Author Organization [employer] Address [address] [facility] [address] [place] [address] Care Team Providers Care Tongue Lining Stitcher Name Role Phone Mukul Callaway MD Primary Care Provider +1- [phone] Erendira Marion Unavailable Encounter Details Date Type Department Care Team ([facility] st Contact Info) Description 04/01/2023 Telephone [facility] MED & PEDS [address] [place], [place] [phone] Mukul Callaway MD [address] [place] [address] Social History Tobacco Use Types Packs/Day Years [...] message prior. You can contact ot at [phone]. documented in this encounter Plan of Treatment Upcoming Encounters Date Type Department Care Team ([facility] st Contact Info) Description 08/21/2024 9:00 AM EDT Office Visit [facility] MED & PEDS [address] [place] [address] Mukul Callaway MD [address] [place] [address] 08/23/2024 9:45 AM EDT Office Visit [facility] MED & PEDS [address] [place] [address] Mukul Callaway MD [address] [place] [address] documented as of this encounter Visit Diagnoses Not on filedocumented in this encounter Care Teams Tongue Lining Stitcher Relationship Specialty Start Date End Date Mukul Callaway MD [address] [place] [address] PCP - General Internal Medicine 01/30/15 Erendira Marion [address] [facility] [place] [address] Rheumatology 05/10/23 01/23/24 Erendira Marion [facility] Rheum. Rheumatology 05/10/23 documented as of this encounter
--- OUTSIDE RECORDS SUMMARY | 2024-07-05 17:34 | XMS_ITS | Clinical Summary ---
Author Organization [employer] Address [address] [facility] [address] [place] [address] Care Team Providers Care Molded Goods Embossing Press Operator Name Role Phone Mukul Callaway MD Primary Care Provider +1- [phone] Allergies No known active allergies Medications loperamide [...] Do not crush, chew, or split. Active predniSONE (Deltasone) 20 MG tabletIndicatio ns:Sciatica of left side Take 2 tablets (40 mg) by mouth Once per day for 5 days. 10 tablet 5 06/17/19 25 oxyCODONE (Roxicodone) 5 MG immediate release tabletIndicatio ns:Sciatica of left side Take 1 tablet (5 mg) by mouth every 6 (six) hours if needed for severe pain for up to 5 days. 15 tablet 5 06/17/19 25 Hospital, Clinic, or Other Facility Administered Medication Ordered Dose Route Frequency Start Date End Date Status albuterol (2.5 MG/3ML) 0.083% nebulizer solution 2.5 mgIndications:Influenz a A 2.5 mg NEBULIZATION Once 03/17/2022 Active Active Problems Problem Noted Date Diagnosed Date Hearing screen with abnormal findings 01/25/2024 Ankylosing spondylitis 03/24/2023 4 Gout 01/30/2015 03/24/2023 Hypercholesterolemia 01/30/2015 03/24/2023 Hypertensive disorder 01/30/2015 03/24/2023 Backache 03/01/2013 03/24/2023 Neck pain 03/01/2013 03/24/2023 Acute OR 07/18/2012 Encounters Date Type Department Care Team Description 06/11/2024 9:15 AM EDT Office Visit [facility] MED & PEDS [address] [place] [address] Mukul Callaway MD Ankylosing spondylitis of cervical region ([facility]) (Primary Dx); Primary hypertension; Hypercholesterolem ia; Sciatica of left side; Dietary counseling; Exercise counseling; Class 3 severe obesity due to excess calories with serious comorbidity and body mass index (BMI) of 40.0 to 44.9 in adult ([facility]) 06/11/2024 Travel 06/04/2024 Travel 06/01/2024 Population Health Risk Score [facility] () Department [address] [place] [phone] Provider, Population Health Generic 05/17/2024 9:45 AM EST Office Visit [facility] OPTOMETRY [address] [place] [address] Kristy Tejeda, OD Myopia, bilateral (Primary Dx); [...] Brother 4 Aristeo Passed natalie y from COVID 4 years ago No Known Problems Brother 5 Santhosh Wallace Heart attack Father Gene at 31 No Known Problems Maternal Grandfather No Known Problems Maternal Grandmother Breast cancer Mother Sumaya No Known Problems Mother's Brother 1 Aidan No Known Problems Mother's Brother 2 Joshua No Known Problems Mother's Brother 3 Chon No Known Problems Mother's Sister 1 Janine Cancer Mother's Sister 2 Milner No Known Problems Other Santhosh No Known Problems Paternal Grandfather No Known Problems Paternal Grandmother No Known Problems Sister 1 Faye Cancer Sister 2 Luzmaria Brain tumor whi ch spred to the rest of the body No Known Problems Sister 3 Milner Cancer Sister 4 Ariadna alwasy admitte d to the hospital for something No Known Problems Sister 5 Vikki No Known Problems Son Ed Klein Relation Name Status Comments Brother 1 Esau [...] Alive Stepdad (Aristeo ) & Biomom Son Gene Ernie Alive Social History Tobacco Use Types Packs/Day [...] Sign Reading Time Taken Comments Blood Pressure 146/101 06/11/2024 9:03 AM EDT Pulse 58 06/11/2024 9:03 AM EDT Temperature 36.8 ??C (98.2 ??F) 06/11/2024 9:03 AM ED T Respiratory Rate 14 06/11/2024 9:03 AM EDT Oxygen Saturation 98% 06/11/2024 9:03 AM EDT Inhaled Oxygen Concentration - - Weight 141 kg (310 lb) 06/11/2024 9:03 AM EDT Height 186.7 cm (6' 1.5 ) 06/11/2024 9:03 AM EDT Body Mass Index 40.35 06/11/2024 9:03 AM EDT Plan of Treatment Upcoming Encounters Date Type Department Care Team ([facility] st Contact Info) Description 08/21/2024 9:00 AM EDT Office Visit [facility] MED & PEDS [address] [place] [address] Mukul Callaway MD [address] [place] [address] 08/23/2024 9:45 AM EDT Office Visit [facility] MED & PEDS [address] [place] [address] Mukul Callaway MD [address] [place] [address] Health Maintenance Due Date Last Done Comments CT Colonography 1955 Colonoscopy 1955 FIT DNA/Cologuard 1955 FIT 1955 FOBT 1955 Sigmoidoscopy 1955 Influenza Vaccine (#1) 2024 8, 02/18/2017, 01/18/2017, Additional history exists Postponed from 11/20/2023 (Patient Refused) Alcohol/Substance Use Screening 01/24/2025 01/25/2024 Depression Screening 01/24/2025 01/25/2024, 01/25/20 24 SDOH Screening 01/24/2025 01/25/2024 COVID-19 Vaccine ( season) 2025 12/03/2020, 11/05/2020 Postponed from 11/20/2023 (Patient Refused) Colorectal Cancer Screening 06/11/2025 Postponed from 1955 (Patient Refused) Pneumococcal Vaccine: 50+ Years (1 of 2 - PCV) 06/11/2025 Postponed from 07/25/1974 (Patient Refused) RSV Patients and Patients Aged 60 years or older (1 - Risk 60-74 years 1-dose series) 06/11/2025 Postponed from 2015 (Patient Refused) Tobacco Screening 06/11/2025 06/11/2024 Zoster Vaccines (3 of 3) 06/11/2025 07/20/2018, 04/22 Postponed from 09/14/2018 (Patient Refused) DTaP/Tdap/Td Vaccines (3 - Td or Tdap) [...] Procedure Name Priority Date/Time Associated Diagnosis Comments HIV 1/2 ANTIGEN/ANTIBODY, FOURTH GENERATION W/RFL Routine 05/28/2024 11:08 AM EDT Screen for sexually transmitted diseases PSA, TOTAL Routine 05/28/2024 11:08 AM EDT Screening for prostate cancer OCT, OPTIC NERVE - OU - BOTH EYES Routine 05/17/2024 4:00 PM EST Open angle with borderline findings, low risk, bilateral HEPATITIS PANEL, GENERAL Routine 05/10/2023 12:23 PM EST LIPID PANEL, STANDARD Routine 03/24/2023 10:05 AM EST Hypercholesterolemia from Last 3 Months or Most Recently Relevant to Health Maintenance Results * HIV-1/2 Antigen and Antibodies, Fourth Generation, with Reflexes (05/28/2024 11:08 AM EDT) HIV AB/AG Nonreactive Nonreactive [facility] Comment:HIV-1 p24 Ag and/or HIV-1/HIV-2 Ab not detected.A test result that is nonreactive does not exclude thepossibility of exposure to or infection with HIV-1 and/orHIV-2. Nonreactive results in this assay for individualswith prior exposure to HIV-1 and/or HIV-2 may be due toantigen and antibody levels that are below the limit ofdetection of this assay.The [employer] HIV Ag/Ab Combo assay result andsupplemental assay results should be interpreted inconjunction with the patient's clinical presentation,history and other laboratory results. If the results areinconsistent with clinical evidence, additional testing issuggested to confirm the result. Blood Venous blood specimen / Unknown 05/28/2024 11:08 AM EDT 05/28/2024 2:18 PM EDT Alem Ashraf MD LAB BLOOD ORDERABLES Final R esult Performing Organization Address City/[facility]/ZIP Co de Phone Number [facility] [address] [place] [phone] * PSA Screen (05/28/2024 11:08 AM EDT) Pathologist [facility] Prostate Specific Antigen 1.35 <0.05 - 4.0 ng/mL [facility] Comment:PSA methodology: Rk Mcdaniels i ChemiluminescentMicroparticle Immunoassay (CMIA) Blood Venous blood specimen / Unknown 05/28/2024 11:08 AM EDT 05/28/2024 2:18 PM EDT Alem Ashraf MD LAB BLOOD ORDERABLES Final R esult Performing Organization Address [facility]/ZIP Co de Phone Number [facility] [address] [place] [phone] * OCT, Optic Nerve - OU - Both Eyes (05/17/2024 4:00 PM EST) Narrative Tarka, Kristy, OD - 05/17/2024 4:00 PM EST OCT [...] PM EST) Hepatitis A IgM Nonreactive Nonreactive [facility] Comment:IgM antibodies to QUIROS V not detected; does not exclude earlyacute or recovered HAV infection. ~Hepatitis B Surface Antibody NONREACTIVE Nonreactive [facility] Comment:Nonreactive: < 8.00 mIU/mL Hepatitis B Core Antibody Nonreactive Nonreactive [facility] Hepatitis C Antibody Nonreactive Nonreactive [facility] Comment:Antibodies to HCV no t detected; does not exclude early acuteHCV infection. Hepatitis B Surface Ag Negative Negative [facility] 05/10/2023 12:2 3 PM EST 05/10/2023 12:23 PM EST us Generic External Data Provider LAB BLOOD ORDERAB LES Final Result [facility] [address] [place] [phone] * (ABNORMAL) Lipid Panel, Standard (03/24/2023 10:05 AM EST) Triglycerides 138 <150 mg/dL [facility] Comment:Desirable Triglyceri de: less than 150 mg/dLBorderline High Triglyceride 150-199 mg/dLHigh Triglyceride: 200-499 mg/dLVery High Triglyceride: greater than or equal to 5OO mg/dL Cholesterol 195 <200 mg/dL [facility] Comment:Desirable Cholestero l: less than 200 mg/dLBorderline High Cholesterol: 200-239 mg/dLHigh Cholesterol: greater than 239 mg/dL LDL Cholesterol Calculated 129(H) <100 mg/dL [facility] Comment:Desirable LDL: less than 100 mg/dLNear Optimal/Above Optimal LDL: 110- 129 mg/dLBorderline High LDL: 130-159 mg/dLHigh LDL: 160-189 mg/dLVery High LDL: greater than or equal to 190 mg/dL HDL Cholesterol 39(L) >40 mg/dL [facility] Comment:Desirable HDL: great er than 40 mg/dL Note: This HDL assay may give artificially low results in patients with liver disease. Blood Venous blood specimen / Unknown 03/24/2023 10:05 AM EST 03/24/2023 2:50 PM EST us Mukul Callaway MD LAB BLOOD ORDERABLES Final Result [facility] [address] [place] [phone] [phone] from Last 3 Months or Most Recently Relevant to Health Maintenance Insurance [place] [address] [place] [address] [place] [id number] Care Teams Molded Goods Embossing Press Operator Relationship Specialty Start Date End Date Mukul Callaway MD [address] [place] [address] [place] [address] PCP - General Internal Medicine 01/30/15 Erendira Marion [facility] [place]. Rheumatology 05/10/23
== END 2024-07-05 14:35 | disposition home or self-care (01) ==
LOC: HO.XRAY 14:34
PROVIDERS: PCP Internal Medicine; Visit Provider Internal Medicine
DX: M54.32 Sciatica, left side (principal); M45.2 Ankylosing spondylitis of cervical region
CPT/HCPCS: 72040; 72110

== ENCOUNTER → 2024-07-05 14:38 | Outpatient (BNV) | payer MEDICARE, SELFPAY | PROVIDERS: PCP Internal Medicine; Visit Provider Radiology Diagnostic Radiology | DX: M45.2 Ankylosing spondylitis of cervical region (principal) | CPT/HCPCS: 72040 ==

== ENCOUNTER 2024-08-23 10:15 | Outpatient (REF) | payer MEDICARE, SELFPAY ==
[2024-08-23 14:11] LABS: MANUAL DIFF FLAG NO
[2024-08-23 14:28] LABS: Basophils Percent Auto 0.5 % (0-2); Eosinophils Absolute Auto 0.2 X10*3/uL (0.0-0.4); Eosinophils Percent Auto 3.4 % (0-4); Hematocrit 48.2 % (42.0-52.0); Hemoglobin 15.5 g/dl (14.0-18.0); Imm Gran Abs Auto 0.01 X10*3/uL (0.00-0.03); Imm Gran Pct Auto 0.2 % (0.0-0.4); Lymphocytes Absolute Auto 1.8 X10*3/uL (1.2-4.9); Mean Corpuscular HGB Conc 32.2 g/dl (31.0-36.0); Mean Corpuscular Hemoglobin 27.6 pg (27.0-33.0); Mean Corpuscular Volume 85.9 fL (80.0-98.0); Mean Platelet Volume 9.6 fL (9.4-12.4); Monocytes Absolute Auto 0.5 X10*3/uL (0.1-1.2); Monocytes Percent Auto 8.4 % (2-11); Neutrophils Absolute Auto 3.6 x10*3/uL (2.0-8.3); Neutrophils Percent Auto 58.5 % (45-73); Platelet Count 251 X10*3/uL (160-400); Red Blood Count 5.61 X10*6/uL (4.60-5.80); Red Cell Distribution Width 13.5 % (11.0-16.0); White Blood Count 6.1 X10*3/uL (4.8-10.8)
[2024-08-23 14:50] LABS: Alanine Aminotransferase 18 U/L (0-40); Albumin Level 4.1 g/dL (3.5-5.0); Alkaline Phosphatase 110 U/L (39-117); Anion Gap 10 (12-20); Aspartate Amino Transferase 23 U/L (5-37); Bilirubin Total 0.5 mg/dL (0.0-1.0); Blood Urea Nitrogen 18 mg/dL (9-16); C Reactive Protein 0.38 mg/dL (< or = 0.50); Calcium 9.3 mg/dL (8.4-10.2); Carbon Dioxide 29 mmol/L (22-29); Chloride 108 mmol/L (96-108); Cholesterol 192 mg/dL (<200); Estimated Glomerular Filt Rate > 60; Glucose Random 107 mg/dL (60-115); HDL Cholesterol 33 mg/dL (>40); LDL Cholesterol Calculated 135 mg/dL (<100); Potassium 4.3 mmol/L (3.3-5.1); Sodium 143 mmol/L (135-145); Triglycerides 121 mg/dL (<150)
[2024-08-23 15:04] LABS: Erythrocyte Sedimentation Rate 13 MM/HR (0-15)
[2024-08-23 15:06] LABS: TSH reflex Free T4 0.74 uIU/mL (0.32-4.0)
[2024-08-28 15:44] LABS: ANA Pattern 3 Nuclear, Speckled; ANA Titer 2 1:40 titer; ANA Titer 3 1:40 titer; Anti Nuclear Antibody Screen POSITIVE (NEGATIVE); Anti Nuclear Antibody Titer 1:40 titer
== END 2024-08-23 10:16 | disposition home or self-care (01) ==
LOC: HO.CHCLDS 10:15
PROVIDERS: Visit Provider Internal Medicine
DX: E78.00 Pure hypercholesterolemia, unspecified (principal); M45.2 Ankylosing spondylitis of cervical region; I10 Essential (primary) hypertension
CPT/HCPCS: 36415; 80053; 80061; 84443; 85025; 85652; 86038; 86039; 86140

== ENCOUNTER 2024-10-26 07:17 | Outpatient (REF) | payer MEDICARE, SELFPAY ==
--- NOTE | ~2024-10-26 | CT_ITS ---
CLINICAL HISTORY: New onset of daily headache Getting worse. CT head without contrast Comparison: None provided Findings: No intra-axial mass, midline shift, hydrocephalus, or acute hemorrhage. Mild age-related cerebral hemispheric white matter ischemic changes. Mild partial bilateral ethmoid sinus opacification. The orbits are within normal limits. No skull fracture. A few nonspecific small subcentimeter right frontal skin nodules. IMPRESSION: 1. No acute intracranial findings. This document has been electronically signed by: Emily Posada MD on 10/26/2024 10:18:07
--- OUTSIDE RECORDS SUMMARY | 2024-10-26 07:18 | XMS_ITS | Encounter Summary ---
Author Organization [employer] Address [address] [place] [address] [address] [place] [address] Care Team Providers Care Machine Sign Writer Name Role Phone Mukul Callaway MD Primary Care Provider +1- [phone] Erendira Marion Unavailable Reason for Visit * Reason Onset Date Comments Med Refill 02/02/2023 Encounter Details Date Type Department Care Team (Late st Contact Info) Description 02/02/2023 Refill [facility] MEDIC[facility] [address] [place] [address] Mukul Callaway MD [address] [place], [place] [phone] Social History Tobacco Use Types Packs/Day Years [...] documented in this encounter Plan of Treatment Not on file documented as of this encounter Visit Diagnoses Not on filedocumented in this encounter Care Teams Machine Sign Writer Relationship Specialty Start Date End Date Mukul Callaway MD [address] [place] [address] PCP - General Internal Medicine 01/30/15 Erendira Marion [address] [place] [address] Rheumatology 05/10/23 01/23/24 Erendira Marion [facility] [place]. Rheumatology 05/10/23 documented as of this encounter
== END 2024-10-26 07:18 | disposition home or self-care (01) ==
LOC: HO.CT 07:17
PROVIDERS: PCP Internal Medicine; Visit Provider Internal Medicine
DX: R51.9 Headache, unspecified (principal)
CPT/HCPCS: 70450

== ENCOUNTER 2024-12-12 10:11 | Outpatient (AMB) | payer MEDICARE, SELFPAY ==
--- NOTE | 2024-12-12 10:20 | A.OFFVIS_ITS ---
Vital Signs 12/12/24 10:25 Height 6 ft 2 in Weight 315 lb 14.758 oz BMI 40.6 BP 140/80 H Blood Pressure Location Rt brachial Position Sitting Pulse 65 Pulse Source Pulse Oximeter Pulse Oximetry (%) 97 Oxygen Delivery Method Room Air Intake Visit Reasons: Intake Note: Patient presents for follow up. Allergies duloxetine (Cymbalta) Allergy (Unknown, Verified 12/12/24 10:24) diarrhea Medication List - Last Reconciled 12/12/24 by Ana Rosa Valles MD HPI Comments Details: Patient is a 69-year-old male with morbid obesity, alcohol dependence, cervical spondylosis and ankylosing spondylitis of the C spinehere today for follow up Interval History: Patient last seen 05/23/23 with Erendira Marion - Recently diagnosed with ankylosing spondylitis of the C-spine - Started on Enbrel Today - Not on any rheum medications - Did not start Enbrel due to cost - Complains of neck pain which is constant, and low back pain - Also complaining of headache for the past 3 months, daily. ibuprofen, tylenol does not help - Used to drink for the pain but quit 10 months ago - Has tried muscle relaxers in the past which were not helpful Rheumatologic History: Initial history: Mr. Rodríguez, 67yoM referred for evaluation of Neck pain and stiffness after cervical xray suggests ankylosing features. He has been having neck and lower back pain for many years, primarily treated with corticosteroid injections. and NSAIDs which no longer provides relief. Recently, he could not get a neck injection per patient because of the DROM in the cervical spine. He also has a history of gout and was recently started on Allopurinol 100 mg QD which he admits forgetting to take it. Patient denies uveitis, UC, Crohn's, plantar fasciitis, and psoriasis. Current Rheumatology Medication(s): [facility] Medical History (Updated 12/12/24 @ 11:21 by Ana Rosa Valles MD) Long-term use of immunosuppressant medication Screening examination for infectious disease Ankylosing spondylitis of cervical region Cervical myofascial pain syndrome Cervical spondylosis COVID-19 Gout Arthritis HTN (hypertension) Myocardial infarct Surgical History Hx of heart artery stent Family History Other Arthritis Social History Household Members: Spouse Housing: House Alcohol intake: current Alcohol intake frequency: a few times a week Patient Tobacco Use Status: Never used Tobacco service: No Current occupational status: unemployed Review of Systems Const Details: Review of Systems Constitutional: Denies fever, chills, weight loss ENT: Denies vision changes, eye pain or eye redness, dental caries, dry mouth GI: Denies nausea, vomiting, diarrhea, abdominal pain, change in BM Pulm: Denies SOB, ALEXANDRA, hemoptysis, wheezing Cards: Denies chest pain, palpitations Skin: Denies Raynaud's, rash, nail changes, photosensitivity, MSK: as per HPI All other systems reviewed and are unremarkable except noted above Physical Exam Exam Exam: Vital signs reviewed Physical Examination CONSTITUITIONAL Patient alert and cooperative. Well appearing and in no apparent painful distress MSK Hands * Right Hand: Able to make a fist. No swelling or tenderness to palpation of the MCPs, PIPs or DIPs. * Left Hand: Able to make a fist. No swelling or tenderness to palpation of the MCPs, PIPs or DIPs. * Herbedens nodes noted bilaterally Wrists * Right Wrist: Full ROM to flexion and extension. No swelling but TTP * Left Wrist: Full ROM to flexion and extension. No swelling or TTP Elbows * Right Elbow: Full ROM. No swelling or TTP. No TTP of the medial epicondyle. No TTP of the lateral epicondyle * Left Elbow: Full ROM. No swelling or TTP. No TTP of the medial epicondyle. No TTP of the lateral epicondyle Shoulders * Right shoulder: Full ROM. No swelling noted. No TTP of the AC joint. No TTP of the subacromial bursa. No TTP of the posterior shoulder * Left shoulder: Full ROM. No swelling noted. No TTP of the AC joint. No TTP of the subacromial bursa. No TTP of the posterior shoulder Hip bursa: No tenderness to palpation bilaterally Knees * Right knee: Full ROM. No swelling noted. TTP of the knee joint line. No TTP of pes anserine bursa * Left knee: Full ROM. No swelling noted. TTP of the knee joint line. No TTP of pes anserine bursa. Ankles * Right ankle: Good ankle dorsiflexion and plantar flexion. No swelling. No TTP of the ankle joint * Left ankle: Good ankle dorsiflexion and plantar flexion. No swelling. No TTP of the ankle joint Feet * Right foot: Positive squeeze test * Left foot: Positive squeeze test Tender points? * Tenderness to palpation of the bilateral trapezius, supraspinatus, anterior costochondral junctions, bilateral suboccipital muscle insertions SKIN No rashes Vital Signs: Last Vital Signs Pulse 65 12/12/24 10:25 BP 140/80 H 12/12/24 10:25 Pulse Ox 97 12/12/24 10:25 Oxygen Delivery Method Room Air 12/12/24 10:25 BMI result Body Mass Index 40.6 Results Reviewed Results Reviewed: Laboratory Tests 08/23/24 10:17 WBC 6.1 RBC 5.61 Hgb 15.5 Hct 48.2 Plt Count 251 ESR 13 Sodium 143 Potassium 4.3 Chloride 108 Carbon Dioxide 29 BUN 18 H Creatinine 0.90 AST 23 ALT 18 C-Reactive Protein 0.38 05/10/23 12:23 Rheumatoid Factor < 13.0 Cycl Citrul Peptide IgG <16 HLA-B27 Negative XR C spine 03/2023 FINDINGS: Vertebral body heights and alignment are normal. There is moderate anterior spondylosis at C2-C3. 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 No acute fracture or spondylolisthesis is seen. The posterior elements are intact. The neural foramina appear relatively patent on the oblique views. There is no prevertebral soft tissue swelling. The dens and C7-T1 interface are normal. IMPRESSION: 1. 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 2. There is anterior spondylosis at C2-C3. 3. The bilateral neural foramina appear relatively patent. X L Spine 04/2023 FINDINGS: There are 5 nonrib-bearing lumbar-type vertebral bodies and a transitional lumbosacral vertebral body which for the purposes study will be called S1. The bones are mildly diffusely demineralized. There is mild loss of height of the L1 vertebral body with slight concavity of the superior inferior endplates of the body. Alignment is within normal limits. There is marked disc space narrowing at L5-S1 consistent with degenerative disc disease. There are no bridging anterior marginal osteophytes. There is slight bridging of the anterior marginal osteophytes at L1-L2. Findings are not consistent with ankylosing spondylitis. There is multilevel degenerative facet joint disease, most notable in the lower lumbar spine. There is calcification of the abdominal aorta with maximal dimension of 2.9 cm in anterior to posterior. There is narrowing of the left sacroiliac joint with sclerosis on the sacral and iliac side of the joint. There is also narrowing,? Partial fusion of the right sacroiliac joint. IMPRESSION: 1. Degenerative disc disease at L5-S1. 2. Multilevel degenerative facet joint disease, most notable in the lower lumbar spine. 3. No evidence of ankylosing spondylitis. 4. Degenerative changes of the left sacroiliac joint and right sacroiliac joint. Dedicated views of the sacroiliac joints could be obtained. 5. The abdominal aorta measures 2.9 cm anterior to posterior in maximum dimension. Ultrasound of the abdominal aorta is recommended for further evaluation. XR SI Joints 04/2023 FINDINGS: Bones and soft tissues are normal. No fracture. Alignment is anatomic. Sacral joints spaces are well-maintained without erosions or surrounding sclerosis. Degenerative changes seen in the lower lumbar spine. IMPRESSION: Unremarkable sacroiliac joints. XR T Spine 04/2023 FINDINGS: There is mild round back posture. The bones are mildly diffusely demineralized. No intrinsic bony abnormality. There is multilevel narrowing of the disc spaces. No fracture or subluxation. There are anterior flowing osteophytes/syndesmophytes in the mid to upper thoracic spine, best appreciated on CT scan angiogram chest 06/29/2020. The paraspinal soft tissues are normal. IMPRESSION: 1. Mild degenerative change. 2. Bridging osteophytes/syndesmophytes in the mid to upper thoracic spine. Assessment & Plan Assessment & Plan (1) Ankylosing spondylitis of cervical region: Comment: Dx 04/2023: HLA B27 negative, flowing syndesmophytes on C spine and T spine films Code(s): M45.2 - Ankylosing spondylitis of cervical region Category: Medical Plan: #Ankylosing spondylitis of the C spine and T spine Patient is a 69-year-old male with ankylosing spondylitis of the C-spine as evidenced by phone syndesmophytes on the C and T-spine films. HLA B27 negative. Did not start Enbrel on a background of cost. We will start patient on Remicade infusions and methotrexate. We will also try low-dose naltrexone to see if this will help his muscle stiffness/fibromyalgia type symptoms as well Plan - Infliximab infusions 5mg/kg at 0, 2, 6weeks then every 6 weeks - Methotrexate 15mg weekly - Folic acid 1mg daily - Naltrexone 4.5mg daily - RTC 4 months - Labs before visit: CBC, CMP, ESR, CRP, Hepatitis panel and T spot (2) Encounter for monitoring of infliximab therapy: Code(s): Z51.81 - Encounter for therapeutic drug level monitoring; Z79.620 - senior care (current) use of immunosuppressive biologic Plan: #Long-term Use of TNF Inhibitors: Remicade Discussed with the patient the benefits and risks of TNF inhibitors for the management of the rheumatic condition Benefits include reduce pain, maintenance of remission and reduction of flares as well as progression of the disease Risks include injection sites/infusion reactions, serious infections (such as bacterial infections, opportunistic infections), malignancy, delaminating syndromes, autoimmune phenomena, CHF exacerbations, palmar plantar psoriasis and cytopenias Recommended rotating injection sites, and holding medication during and for up to 1 week after resolution of a febrile illness or open skin wound (3) Encounter for methotrexate monitoring: Code(s): Z51.81 - Encounter for therapeutic drug level monitoring; Z79.631 - senior care (current) use of antimetabolite agent Plan: #Long-term Current Use of Methotrexate Discussed with patient the benefits and risks of methotrexate for managing their rheumatic condition Benefits include reduced pain, reduced mortality, maintenance of remission and reduction of flares Risks include oral ulcers, photosensitivity, hepatotoxicity, hematologic toxicity, pneumonitis, flu-like symptoms (especially day after administration), nodulosis, lymphomas ? Limit alcohol and avoid Bactrim ? Monitoring: CBC, BMP, LFTs every 3-4 months and hepatitis serologies as needed Plan I spent 42 minutes reviewing the record and labs, taking a history, examining the patient, discussing the treatment plan, ordering diagnostic work up, infusion orders and documenting in the medical record Orders: Orders C Reactive Protein 4 Months Z79.899 - Other pediatric clinical nurse specialist (current) drug therapy Erythrocyte Sedimentation Rate 4 Months Z79.899 - Other pediatric clinical nurse specialist (current) drug therapy Complete Blood Count Auto Diff 4 Months Z79.89 - Other penitentiary (current) drug therapy Comprehensive Met. Panel 4 Months Z. - Other pediatric clinical nurse specialist (current) drug therapy Hepatitis B,C Profile 4 Months Z. - Other pediatric clinical nurse specialist (current) drug therapy T Spot TB 4 Months Z. - Other pediatric clinical nurse specialist (current) drug therapy Referrals Infusion Center Notification M45.2 - Ankylosing spondylitis of cervical region Medications: New methotrexate sodium 15 mg (6 x 2.5 mg) PO QWEEK 78 tabs 1RF 90 days M45.2 - Ankylosing spondylitis of cervical region folic acid 1 mg PO DAILY 90 tabs 1RF M45.2 - Ankylosing spondylitis of cervical region naltrexone 4.5 mg PO .nightly 90 caps 1RF M79.18 - Myalgia, other site Coding Level of Care Code Est Pt Level 5 (96393) Complex EM visit Add On G2211 Diagnoses Ankylosing spondylitis of cervical region M45.2 Encounter for monitoring of infliximab therapy Z51.81; Z79.620 Encounter for methotrexate monitoring Z51.81; Z79.631
[2024-12-12 10:25] VITALS: BP 140/80; PULSE 65; O2SAT 97; BMI 40.6
--- OUTSIDE RECORDS SUMMARY | 2024-12-12 12:29 | XMS_ITS | Encounter Summary ---
Author Organization [employer] Address [address] [place] [address] [address] [place] [address] Care Team Providers Care B2B Sales Consultant Name Role Phone Mukul Callaway MD Primary Care Provider [phone] Encounter Details Date Type Department Care Team ([facility] st Contact Info) Description 07/17/2024 Orders Only [facility]S [address] [place], [place] [phone] Mukul Callaway MD [address] [place], [place] [phone] Social History Tobacco Use Types Packs/Day Years [...] as of this encounter Plan of Treatment Not on file documented as of this encounter Visit Diagnoses Not on filedocumented in this encounter Additional Health Concerns Assessment Noted Time PHQ-9 Depression Total Score: 6 01/25/20 24 10:37 AM EST documented as of this encounter Care Teams B2B Sales Consultant Relationship Specialty Start Date End Date Mukul Callaway MD [address] [place] [id number] PCP - General Internal Medicine 01/30/15 Erendira Marion [facility] [place]. Rheumatology 05/10/23 documented as of this encounter
--- OUTSIDE RECORDS SUMMARY | 2024-12-12 12:29 | XMS_ITS | Encounter Summary ---
Author Organization [employer] Address [address] [place] [address] [address] [place] [address] Care Team Providers Care Dentist Name Role Phone Mukul Callaway MD Primary Care Provider [phone] Erendira Marion Unavailable Encounter Details Date Type Department Care Team ([facility] st Contact Info) Description 04/01/2023 Telephone [facility] MED [facility] PEDS [address] [place], [place] [phone] Mukul Callaway MD [address] [place] [address] Social History Tobacco Use Types Packs/Day Years [...] next month. * Telephone Encounter - Reji Wolff - 04/01/2023 3:52 PM EST Tc from pt returning call regarding message prior. You can contact ot at [phone]. documented in this encounter Plan of Treatment Not on file documented as of this encounter Visit Diagnoses Not on filedocumented in this encounter Care Teams Dentist Relationship Specialty Start Date End Date Mukul Callaway MD [address] [place] [address] PCP - General Internal Medicine 01/30/15 Erendira Marion [address] [place] [address] Rheumatology 05/10/23 01/23/24 Erendira Marion [facility] [place] Rheum. Rheumatology 05/10/23 documented as of this encounter
--- OUTSIDE RECORDS SUMMARY | 2024-12-12 12:29 | XMS_ITS | Encounter Summary ---
Author Organization [employer] Address [address] [place] [address] [address] [place] [address] Care Team Providers Care Shoe Salesperson Name Role Phone Mukul Callaway MD Primary Care Provider [phone] Erendira Marion Unavailable Reason for Visit * Reason Onset Date Comments Med Refill 02/02/2023 Encounter Details Date Type Department Care Team (Late st Contact Info) Description 02/02/2023 Refill [facility] [address] [place] [address] Mukul Callaway MD [address] [place], [place] [phone] Social History Tobacco Use Types Packs/Day Years [...] on filedocumented in this encounter Care Teams Shoe Salesperson Relationship Specialty Start Date End Date Mukul Callaway MD [address] [place] [address] PCP - General Internal Medicine 01/30/15 Erendira Marion [address] [place] [address] Rheumatology 05/10/23 01/23/24 Erendira Marion [facility] [place] Rheum. Rheumatology 05/10/23 documented as of this encounter
--- OUTSIDE RECORDS SUMMARY | 2024-12-12 12:29 | XMS_ITS | Encounter Summary ---
Author Organization [employer] Address [address] [place] [address] [address] [place] [address] Care Team Providers Care Government Operations Consultant Name Role Phone Mukul Callaway MD Primary Care Provider [phone] Encounter Details Date Type Department Care Team ([facility] st Contact Info) Description 10/26/2024 Results Follow-Up [facility] MED [facility] PEDS [address] [place], [place] [phone] Mukul Callaway MD [address] [place] [address] CT Head w/o Contrast Social History Tobacco Use Types Packs/Day Years [...] documented as of this encounter Care Teams Government Operations Consultant Relationship Specialty Start Date End Date Mukul Callaway MD [address] [place] [id number] PCP - General Internal Medicine 01/30/15 Erendira Marion [facility] [place]um. Rheumatology 05/10/23 documented as of this encounter
--- OUTSIDE RECORDS SUMMARY | 2024-12-12 12:29 | XMS_ITS | Clinical Summary ---
Author Organization [employer] Address [address] [place] [address] 7[address] [place] [address] Care Team Providers Care Can Closing Machine Operator Name Role Phone Mukul Callaway MD Primary Care Provider [phone] Allergies No known active allergies Medications loperamide [...] Do not crush, chew, or split. Active ketoconazole (NIZOral) 2 % shampooIndicati ons:Seborrheic dermatitis Apply topically 2 (two) times a week. 120 mL 2 5 Active tiZANidine (Zanaflex) 2 MG tabletIndicatio ns:Daily headache Take 1 tablet (2 mg) by mouth every 6 (six) hours if needed for muscle spasms for up to 10 days. 30 tablet 5 Active Hospital, Clinic, or Other Facility Administered [...] 03/01/2013 03/24/2023 Neck pain 03/01/2013 03/24/2023 Acute MS 07/18/2012 Encounters Date Type Department Care Team Description 10/26/2024 Results Follow-Up [facility] [address] [place] [address] Head w/o Contrast from Last 3 Months Immunizations Immunization Administration Dates Next Due Influenza Injectable Quadriv [...] Brother 4 Aristeo Passed natalie y from [employer] 4 years ago No Known Problems Brother 5 Santhosh Wallace Heart attack Father Gene at 31 No Known Problems Maternal Grandfather No Known Problems Maternal Grandmother Breast cancer Mother Sumaya No Known Problems Mother's Brother 1 Aidan No Known Problems Mother's Brother 2 Joshua No Known Problems Mother's Brother 3 Chon No Known Problems Mother's Sister 1 Janine Cancer Mother's Sister 2 Mozelle No Known Problems Other Santhosh No Known Problems Paternal Grandfather No Known Problems Paternal Grandmother No Known Problems Sister 1 Faye Cancer Sister 2 Luzmaria Brain tumor whi ch spred to the rest of the body No Known Problems Sister 3 Chasidy Cancer Sister 4 Ariadna romanneptalisy admitte d to the hospital for something No Known Problems Sister 5 Vikki No Known Problems Son Gene Ernie Relation Name Status Comments Brother 1 Esau Brother 2 Elie Alive Brother 3 Joshua Alive Stepdad (Aristeo ) & Biomom Brother 4 Aristeo Stepdad (Aristeo ) & Biomom Brother 5 Santhosh Jr Alive Stepdad (Joshua s) & Biomom Father Gene Maternal Grandfather Maternal Grandmother Mother Sumaya Mother's Brother 1 Aidan Mother's Brother 2 Joshua Mother's Brother 3 Chon Mother's Sister 1 Janine Mother's Sister 2 Chasidy Other Santhosh Alive Stepfather Paternal Grandfather Paternal Grandmother Sister 1 Faye Alive Sister 2 Luzmaria Sister 3 Mozelle Alive Sister 4 Ariadna Alive Stepdad & Biomo m Sister 5 Vikki Alive Stepdad (Airsteo ) & Biomom Son Gene Ernie Alive [...] Sign Reading Time Taken Comments Blood Pressure 138/80 08/23/2024 9:39 AM EDT Pulse 64 08/23/2024 9:39 AM EDT Temperature 36.6 C (97.9 F) 08/23/2024 9:39 AM EDT Respiratory Rate 20 08/23/2024 9:39 AM EDT Oxygen Saturation 99% 08/23/2024 9:39 AM EDT Inhaled Oxygen Concentration - - Weight 140 kg (309 lb) 08/23/2024 9:39 AM EDT Height 186.7 cm (6' 1.5 ) 08/23/2024 9:39 AM EDT Body Mass Index 40.21 08/23/2024 9:39 AM EDT Plan of Treatment Health Maintenance Due Date Last Done Comments CT Colonography 1955 Colonoscopy 1955 FIT DNA/Cologuard 1955 FIT 1955 FOBT 1955 Sigmoidoscopy 1955 COVID-19 Vaccine ( season) 2024 12/03/2020, 11/05/2020 Influenza Vaccine (#1) 2024 8, 02/18/2017, 01/18/2017, Additional history exists Alcohol/Substance Use Screening 01/24/2025 01/25/2024 Depression Screening 01/24/2025 01/25/2024, 01/25/20 24 SDOH Screening 01/24/2025 01/25/2024 Colorectal Cancer Screening 06/11/2025 Postponed from 1955 (Patient Refused) Pneumococcal Vaccine: 50+ Years (1 of 2 - PCV) 06/11/2025 Postponed from 07/25/1974 (Patient Refused) RSV Patients and Patients Aged 60 years or older (1 - Risk 60-74 years 1-dose series) 06/11/2025 Postponed from 2015 (Patient Refused) Zoster Vaccines (3 of 3) 06/11/2025 07/20/2018, 04/22 Postponed from 09/14/2018 (Patient Refused) Tobacco Screening 08/23/2025 08/23/2024 DTaP/Tdap/Td Vaccines (3 - Td or Tdap) 05/13/2027 05/13/2017, 01/28/2009 Lipid Panel 08/23/2029 08/23/2024, 03/24/2023 Hepatitis C Screening Completed 05/10/2023 HIB [...] patient's age to complete this topic Meningococcal B Vaccine Aged Out No l onger eligible based on patient's age to complete [...] Procedure Name Priority Date/Time Associated Diagnosis Comments CT HEAD WO CONTRAST Routine 10/26/2024 1 0:18 AM EDT Daily headache LIPID PANEL, STANDARD Routine 08/23/2024 10:17 AM EDT Ankylosing spondylitis of cervical region (CMS/HCC) Primary hypertension Hypercholesterolemia HEPATITIS PANEL, GENERAL Routine 05/10/2023 12:23 PM EST from Last 3 Months or Most Recently Relevant to Health Maintenance Results * CT Head w/o Contrast (10/26/2024 10:18 AM EDT) Anatomical Region Laterality Modality Head, Neck Computed Tomogra phy 10/26/2024 10:1 8 AM EDT Narrative 10/26/2024 10:18 AM EDT [address] [address] [address] Scan Report Signed Patient: Frank Klein MR#: [id number] : 1955 Acct:[id number] Age/Sex: 69 / M ADM Date: 10/26/24 Loc: HO.CT Attending Dr: Mukul Callaway MD Ordering Physician: Mukul Callaway MD Date of Service: 10/26/24 Procedure(s): CT head/brain wo IV con Accession Number(s): [id number] cc: Mukul Callaway MD Report Number: [id number]: Total DLP = 858.00 mGy-cm CLINICAL HISTORY: New onset of daily headache Getting worse. CT head without contrast Comparison: None provided Findings: No intra-axial mass, midline shift, hydrocephalus, or acute hemorrhage. Mild age-related cerebral hemispheric white matter ischemic changes. Mild partial bilateral ethmoid sinus opacification. The orbits are within normal limits. No skull fracture. A few nonspecific small subcentimeter right frontal skin nodules. IMPRESSION: 1. No acute intracranial findings. This document has been electronically signed by: Emily Posada MD on 10/26/2024 10:18:07 Dictated By: Emily Posada MD Signed By: <Electronically signed by Emily Posada MD in OV> 10/26/24 1018 DD/ 1018 TD/TT: 10/26/24 1018 Rn Visiting: Procedure Note Donotuseinterpreter, Image - 10/26/[address] [address] [address] Scan Report Signed Patient: Frank Klein RMR#: [id number] : 1955cct:[id number] Age/Sex: 69 / MADM Date: 10/26/24 Loc: HO.CT Attending Dr: Mukul Callaway MD Ordering Physician: Mukul Callaway MD Date of Service: 10/26/24 Procedure(s): CT head/brain wo IV con Accession Number(s): [id number] cc: Mukul Callaway MD Report Number: [id number]: Total DLP = 858.00 mGy-cm CLINICAL HISTORY: New onset of daily headache Getting worse. CT head without contrast Comparison: None provided Findings: No intra-axial mass, midline shift, hydrocephalus, or acute hemorrhage. Mild age-related cerebral hemispheric white matter ischemic changes. Mild partial bilateral ethmoid sinus opacification. The orbits are within normal limits. No skull fracture. A few nonspecific small subcentimeter right frontal skin nodules. IMPRESSION: 1. No acute intracranial findings. This document has been electronically signed by: Emily Posada MD on 10/26/2024 10:18:07 Dictated By: Emily Posada MD Signed By: <Electronically signed by Emily Posada MD in OV> 10/26/24 1018 DD/ 1018 TD/TT: 10/26/24 1018 Rn Visiting: Mukul Callaway MD IMG CT PROCEDURES Final Res ult * (ABNORMAL) Lipid Panel, Standard (08/23/2024 10:17 AM EDT) Triglycerides 121 <150 mg/dL [facility] Comment:Desirable Triglyceri de: less than 150 mg/dLBorderline High Triglyceride 150-199 mg/dLHigh Triglyceride: 200-499 mg/dLVery High Triglyceride: greater than or equal to 5OO mg/dL Cholesterol 192 <200 mg/dL [facility] Comment:Desirable Cholestero l: less than 200 mg/dLBorderline High Cholesterol: 200-239 mg/dLHigh Cholesterol: greater than 239 mg/dL LDL Cholesterol Calculated 135(H) <100 mg/dL [facility] Comment:Desirable LDL: less than 100 mg/dLNear Optimal/Above Optimal LDL: 110- 129 mg/dLBorderline High LDL: 130-159 mg/dLHigh LDL: 160-189 mg/dLVery High LDL: greater than or equal to 190 mg/dL HDL Cholesterol 33(L) >40 mg/dL [facility] Comment:Desirable HDL: great er than 40 mg/dL Note: This HDL assay may give artificially low results in patients with liver disease. Blood Venous blood specimen / Unknown 08/23/2024 10:17 AM EDT 08/23/2024 2:08 PM EDT us Mukul Callaway MD LAB BLOOD ORDERABLES Final Result Performing Organization Address [facility] Co de Phone Number [facility] [address] [place] [address] [phone] * Hepatitis Panel, General (05/10/2023 12:23 PM EST) Hepatitis A IgM Nonreactive Nonreactive [facility] Comment:IgM antibodies to QUIROS V not detected; does not exclude earlyacute or recovered HAV infection. ~Hepatitis B Surface Antibody NONREACTIVE Nonreactive [facility] Comment:Nonreactive: < 8.00 mIU/mL Hepatitis B Core Antibody Nonreactive Nonreactive [facility] Hepatitis C Antibody Nonreactive Nonreactive [facility] Comment:Antibodies to HCV no t detected; does not exclude early acuteHCV infection. Hepatitis B Surface Ag Negative Negative [facility] 05/10/2023 12:2 3 PM EST 05/10/2023 12:23 PM EST us Generic External Data Provider LAB BLOOD ORDERAB LES Final Result Performing Organization Address [facility] Co de Phone Number [facility] [address] [place] [phone] from Last 3 Months or Most Recently Relevant to Health Maintenance Insurance MEDICARE Care Teams Can Closing Machine Operator Relationship Specialty Start Date End Date Mukul Callaway MD [address] [place] [address] [place]uluaga [id number] PCP - General Internal Medicine 01/30/15 Erendira Marion [facility] Rheum. Rheumatology 05/10/23
== END 2024-12-12 11:05 | disposition home or self-care (01) ==
LOC: HO.RHES 10:12
PROVIDERS: PCP Internal Medicine; Visit Provider Student in an Organized Health Care Education/Training Program
DX: M45.2 Ankylosing spondylitis of cervical region (principal); Z51.81 Encounter for therapeutic drug level monitoring; Z79.620 Long term (current) use of immunosuppressive biologic; Z79.631 Long term (current) use of antimetabolite agent
CPT/HCPCS: 99215; G2211

== ENCOUNTER → 2024-12-12 10:11 | Outpatient (BNVA) | payer MEDICARE, SELFPAY | PROVIDERS: PCP Internal Medicine; Visit Provider Student in an Organized Health Care Education/Training Program | DX: M45.2 Ankylosing spondylitis of cervical region (principal); Z51.81 Encounter for therapeutic drug level monitoring; Z79.620 Long term (current) use of immunosuppressive biologic; Z79.631 Long term (current) use of antimetabolite agent | CPT/HCPCS: 99212 ==

== ENCOUNTER 2025-01-26 12:18 | Emergency (ER) | payer OTHER, SELFPAY ==
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
[2025-01-26 12:25] VITALS: BP 147/79; BP 198/98; PULSE 76; PULSE 83; RESP 20; TEMP 36.9; O2SAT 95; O2SAT 96; BMI 41.6
--- OUTSIDE RECORDS SUMMARY | 2025-01-26 12:45 | XMS_ITS | Encounter Summary ---
Author Organization [employer] Address [address] [place] [address] [address] [place] [address] Care Team Providers Care Dog Sitter Name Role Phone Mukul Callaway MD Primary Care Provider [phone] Encounter Details Date Type Department Care Team ([facility] st Contact Info) Description 07/17/2024 Orders Only [facility] MED & PEDS [address] [place], [place] [phone] Mukul Callaway MD [address] [place] [address] Social History Tobacco Use Types Packs/Day Years Used Date Smoking Tobacco: Never Smokeless Tobacco: Never Alcohol Use Standard Drinks/Week Comments Yes 60 (1 standard drink = 0.6 oz pure alcohol) Pt reports currently consuimg 60 draft beers a week Alcohol Answer Date Recorded How often do you have a drink containing alcohol ? 3 01/25/2024 How many drinks containing a lcohol do you have on a typical day when you are drinking? 3 01/25/2024 How often do you have six or more drinks on one occasion? 4 01/25/2024 Depression Answer Date Recorded Patient Health Questionnaire-9 [...] documented as of this encounter Care Teams Dog Sitter Relationship Specialty Start Date End Date Mukul Callaway MD [address] [place] [address] PCP - General Internal Medicine 01/30/15 Erendira Marion [facility] Rheum. Rheumatology 05/10/23 documented as of this encounter
--- OUTSIDE RECORDS SUMMARY | 2025-01-26 12:45 | XMS_ITS | Encounter Summary ---
Author Organization [employer] Address [address] [place] [address] 7 [place] [address] Care Team Providers Care Income Auditor Name Role Phone Mukul Callaway MD Primary Care Provider [phone] Erendira Marion Unavailable Reason for Visit * Reason Onset Date Comments Med Refill 02/02/2023 Encounter Details Date Type Department Care Team (Late st Contact Info) Description 02/02/2023 Refill [facility] [address] [place] [address] Mukul Callaway MD [address] [place], [place] [phone] Social History Tobacco Use Types Packs/Day Years [...] on filedocumented in this encounter Care Teams Income Auditor Relationship Specialty Start Date End Date Mukul Callaway MD [address] [place] [address] PCP - General Internal Medicine 01/30/15 Erendira Marion [address] [place] [address] Rheumatology 05/10/23 01/23/24 Erendira Marion [facility] Rheum. Rheumatology 05/10/23 documented as of this encounter
--- OUTSIDE RECORDS SUMMARY | 2025-01-26 12:45 | XMS_ITS | Clinical Summary ---
Author Organization [employer] Address [address] [facility] 7[address] [place] [address] Care Team Providers Care Delivery Associate Name Role Phone Mukul Callaway MD Primary Care Provider [phone]- [phone] Allergies No known active allergies Medications loperamide [...] 03/01/2013 03/24/2023 Neck pain 03/01/2013 03/24/2023 Acute RI 07/18/2012 Encounters Date Type Department Care Team Description 10/26/2024 Results Follow-Up [facility] MED & PEDS [address] [place] [address] Head w/o Contrast [...] Brother 4 Aristeo Passed natalie y from [employer] 4 years ago No Known Problems Brother 5 Santhosh Wallace Heart attack Father Gene at 31 No Known Problems Maternal Grandfather No Known Problems Maternal Grandmother Breast cancer Mother Sumaya No Known Problems Mother's Brother 1 Aidan No Known Problems Mother's Brother 2 Joshua No Known Problems Mother's Brother 3 Chon No Known Problems Mother's Sister 1 Janine Cancer Mother's Sister 2 [place] No Known Problems Other Santhosh No Known [...] AM EDT Narrative 10/26/2024 10:18 AM EDT [address] [address] [address] Scan Report Signed Patient: Frank Klein MR#: [id number] : 1955 Acct:[id number] Age/Sex: 69 / M ADM Date: 10/26/24 Loc: HO.CT Attending Dr: Mukul Callaway MD Ordering Physician: Mukul Callaway MD Date of Service: 10/26/24 Procedure(s): CT head/brain wo IV con Accession Number(s): [id number] cc: Mukul Callaway MD Report Number: [id number]: Total DLP = 858.00 mGy-cm CLINICAL HISTORY: [...] 10/26/24 1018 DD/ 1018 TD/TT: 10/26/24 1018 Nibbler Operator: Procedure Note Donotuseinterpreter, Image - 10/26/[address] [address] [address] Scan Report Signed Patient: Frank Klein RMR#: [id number] : 1955cct:[id number] Age/Sex: 69 / MADM Date: 10/26/24 Loc: HO.CT Attending Dr: Mukul Callaway MD Ordering Physician: Mukul Callaway MD Date of Service: 10/26/24 Procedure(s): CT head/brain wo IV con Accession Number(s): [id number] cc: Mukul Callaway MD Report Number: [id number]: Total DLP = 858.00 mGy-cm CLINICAL HISTORY: [...] 10/26/24 1018 DD/ 1018 TD/TT: 10/26/24 1018 Nibbler Operator: Mukul Callaway MD IMG CT PROCEDURES Final Res ult * (ABNORMAL) Lipid Panel, Standard (08/23/2024 10:17 AM EDT) Triglycerides 121 <150 mg/dL [facility] Comment:Desirable Triglyceri de: less than 150 mg/dLBorderline High Triglyceride 150-199 mg/dLHigh Triglyceride: 200-499 mg/dLVery High Triglyceride: greater than or equal to 5OO mg/dL Cholesterol 192 <200 mg/dL [facility] Comment:Desirable Cholestero l: less than 200 mg/dLBorderline High Cholesterol: 200-239 mg/dLHigh Cholesterol: greater than 239 mg/dL LDL Cholesterol Calculated 135(H) <100 mg/dL [facility] Comment:Desirable LDL: less than 100 mg/dLNear Optimal/Above Optimal LDL: 110- 129 mg/dLBorderline High LDL: 130-159 mg/dLHigh LDL: 160-189 mg/dLVery High LDL: greater than or equal to 190 mg/dL HDL Cholesterol 33(L) >40 mg/dL [facility] Comment:Desirable HDL: great er than 40 mg/dL Note: This HDL assay may give artificially low results in patients with liver disease. Blood Venous blood specimen / Unknown 08/23/2024 10:17 AM EDT 08/23/2024 2:08 PM EDT us Mukul Callaway MD LAB BLOOD ORDERABLES Final Result Performing Organization Address [facility] Co de Phone Number [facility] [address] [place] [address] [phone] * Hepatitis Panel, General (05/10/2023 12:23 PM EST) Hepatitis A IgM Nonreactive Nonreactive [facility] Comment:IgM antibodies to QUIROS V not detected; does not exclude earlyacute or recovered HAV infection. ~Hepatitis B Surface Antibody NONREACTIVE Nonreactive [facility] Comment:Nonreactive: < 8.00 mIU/mL Hepatitis B Core Antibody Nonreactive Nonreactive [facility] Hepatitis C Antibody Nonreactive Nonreactive [facility] Comment:Antibodies to HCV no t detected; does not exclude early acuteHCV infection. Hepatitis B Surface Ag Negative Negative [facility] 05/10/2023 12:2 3 PM EST 05/10/2023 12:23 PM EST us Generic External Data Provider LAB BLOOD ORDERAB LES Final Result Performing Organization Address [facility] Co de Phone Number [facility] [address] [place] [address] [phone] from Last 3 Months or Most Recently Relevant to Health Maintenance Insurance MEDICARE Care Teams Delivery Associate Relationship Specialty Start Date End Date Mukul Callaway MD [address] [place] [address] PERCY [id number] PCP - General Internal Medicine 01/30/15 Erendira Marion [facility] Rheum. Rheumatology 05/10/23
--- OUTSIDE RECORDS SUMMARY | 2025-01-26 12:45 | XMS_ITS | Encounter Summary ---
Author Organization [employer] Address [address] [place] [address] [address] [place] [address] Care Team Providers Care Computational Biologist Name Role Phone Mukul Callaway MD Primary Care Provider [phone] Erendira Marion Unavailable Encounter Details Date Type Department Care Team ([facility] st Contact Info) Description 04/01/2023 Telephone [facility] MED & PEDS [address] [place], [place] [phone] Mukul Callaway MD [address] [place] [address] Social History Tobacco Use Types Packs/Day Years [...] message prior. You can contact ot at [phone]. documented in this encounter Plan of Treatment Not on file documented as of this encounter Visit Diagnoses Not on filedocumented in this encounter Care Teams Computational Biologist Relationship Specialty Start Date End Date Mukul Callaway MD [address] [place] [address] PCP - General Internal Medicine 01/30/15 Erendira Marion [address] [place] [address] Rheumatology 05/10/23 01/23/24 Erendira Marion [facility] Rheum. Rheumatology 05/10/23 documented as of this encounter
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
[2025-01-26 16:04] VITALS: BP 146/70; PULSE 96; RESP 19; TEMP 36.8; O2SAT 98
[2025-01-26] MEDS: Lidocaine 4 % Patch ADH..PATCH 1 PATCH TRANSDERMA (17:30)
[2025-01-26 17:37] VITALS: BP 146/70; PULSE 96; RESP 19; TEMP 36.8; O2SAT 98
== END 2025-01-26 17:37 | disposition home or self-care (01) ==
PROVIDERS: Emergency Provider Emergency Medicine Emergency Medical Services; PCP Internal Medicine
DX: Z04.1 Encounter for examination and observation following transport accident (principal); M54.2 Cervicalgia; M54.50 Low back pain, unspecified; M45.9 Ankylosing spondylitis of unspecified sites in spine
CPT/HCPCS: 70450; 72125; 96372; 99283; 99284; J1885

== ENCOUNTER 2025-02-12 06:57 | Outpatient (REF) | payer OTHER, SELFPAY ==
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
--- OUTSIDE RECORDS SUMMARY | 2025-02-12 07:00 | XMS_ITS | Encounter Summary ---
Author Organization [employer] Address [address] [facility] [address] [place] [address] Care Team Providers Care Automatic Teller Machine Servicer Name Role Phone Mukul Callaway MD Primary Care Provider [phone] Erendira Marion Unavailable Reason for Visit * Reason Onset Date Comments Med Refill 02/02/2023 Encounter Details Date Type Department Care Team (Late st Contact Info) Description 02/02/2023 Refill [facility] MEDICINE [address] [place] [address] Mukul Callaway MD [address] [place] [address] Social History Tobacco Use Types Packs/Day Years [...] Upcoming Encounters Date Type Department Care Team ([facility] st Contact Info) Description 06/14/2025 11:00 AM EDT Office Visit [facility] OPTOMETRY [address] [place], [place] [phone] Kristy Tejeda, OD [address] [place] [address] documented as of this encounter Visit Diagnoses Not on filedocumented in this encounter Care Teams Automatic Teller Machine Servicer Relationship Specialty Start Date End Date Mukul Callaway MD [address] [place] [address] PCP - General Internal Medicine 01/30/15 Erendira Marion [address] [place] [address] Rheumatology 05/10/23 01/23/24 Erendira Marion [facility] Rheum. Rheumatology 05/10/23 documented as of this encounter
--- OUTSIDE RECORDS SUMMARY | 2025-02-12 07:00 | XMS_ITS | Encounter Summary ---
Author Organization [employer] Address [address] [facility] [address] [place] [address] Care Team Providers Care Air Pollution Specialist Name Role Phone Mukul Callaway MD Primary Care Provider [phone] Erendira Marion Unavailable Encounter Details Date Type Department Care Team ([facility] st Contact Info) Description 04/01/2023 Telephone [facility] MED & PEDS [address] [place], [place] [phone] Mukul Callaway MD [address] [place] [address] Social History Tobacco Use Types Packs/Day Years [...] message prior. You can contact ot at [phone]. documented in this encounter Plan of Treatment Upcoming Encounters Date Type Department Care Team (Late st Contact Info) Description 06/14/2025 11:00 AM EDT Office Visit [facility] OPTOMETRY [address] [place], [place] [phone] Kristy Tejeda, OD [address] [place], [place] [phone] documented as of this encounter Visit Diagnoses Not on filedocumented in this encounter Care Teams Air Pollution Specialist Relationship Specialty Start Date End Date Mukul Callaway MD [address] [place] [address] PCP - General Internal Medicine 01/30/15 Erendira Marion [address] [place] [address] Rheumatology 05/10/23 01/23/24 Erendira Marion [facility] [place]. Rheumatology 05/10/23 documented as of this encounter
--- OUTSIDE RECORDS SUMMARY | 2025-02-12 07:00 | XMS_ITS | Encounter Summary ---
Author Organization [employer] Address [address] [facility] [address] [place] [address] Care Team Providers Care Seamstress Fitter Name Role Phone Mukul Callaway MD Primary Care Provider [phone] Encounter Details Date Type Department Care Team ([facility] st Contact Info) Description 07/17/2024 Orders Only [facility] [address] [place], [place] [phone] Mukul Callaway MD [address] [place] [address] Social History Tobacco Use Types Packs/Day Years [...] Description 06/14/2025 11:00 AM EDT Office Visit [facility] [address] [place] [address] TarkaKristy, OD [address] [place] [address] documented as of this encounter Visit Diagnoses Not on filedocumented in this encounter Additional Health Concerns Assessment Noted Time PHQ-9 Depression Total Score: 6 01/25/20 24 10:37 AM EST documented as of this encounter Care Teams Seamstress Fitter Relationship Specialty Start Date End Date Mukul Callaway MD [address] [place] [id number] PCP - General Internal Medicine 01/30/15 Erendira Marion [facility] [place]. Rheumatology 05/10/23 documented as of this encounter
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
== END 2025-02-12 06:58 | disposition home or self-care (01) ==
LOC: HO.XRAY 06:57
PROVIDERS: PCP Internal Medicine; Visit Provider Internal Medicine
DX: S39.012A Strain of muscle, fascia and tendon of lower back, initial encounter (principal)
CPT/HCPCS: 72110

== ENCOUNTER → 2025-02-12 07:04 | Outpatient (BNV) | payer OTHER, SELFPAY | PROVIDERS: PCP Internal Medicine; Visit Provider Radiology Diagnostic Radiology | DX: M51.360 Other intervertebral disc degeneration, lumbar region with discogenic back pain only (principal); V89.2XXA Person injured in unspecified motor-vehicle accident, traffic, initial encounter | CPT/HCPCS: 72110 ==